=== PATIENT | female | born 1985 | race Caucasian/White ===

== ENCOUNTER 2019-04-29 08:14 | Outpatient (CLI) | payer OTHER, SELFPAY ==
--- NOTE | ~2019-04-29 | CT_ITS ---
EXAMINATION: CT sinus wo con DATE: 04/29/2019 08:34 INDICATION: Chronic sinusitis TECHNIQUE: Computed tomography (CT) of the paranasal sinuses was performed without intravenous contra st. The dose-length product was 218.04 mGy-cm. Automated exposure control and iterative reconstructio n technique were employed. COMPARISON: CT dated 01/07/2018 FINDINGS: There are surgical changes consistent with resection of the ostiomeatal units. There is mil d mucosal thickening of the maxillary sinuses. There are no air-fluid levels. No significant nasal se ptal deviation. Mastoids are pneumatized. IMPRESSION: 1. Mild maxillary mucosal thickening. Reviewed, dictated and finalized at location A. ET ANALYST
== END 2019-04-29 08:15 | disposition home or self-care (01) ==
PROVIDERS: Visit Provider Family Medicine
DX: J32.9 Chronic sinusitis, unspecified (principal)
CPT/HCPCS: 70486

== ENCOUNTER 2019-12-01 09:30 | Outpatient (NON) | payer OTHER, SELFPAY ==
[2019-12-02 03:00] LABS: SARS-CoV-2 RNA PCR Negative
== END 2019-12-01 09:31 ==
PROVIDERS: PCP Family Medicine; Visit Provider Family Medicine
DX: Z20.828 Contact with and (suspected) exposure to other viral communicable diseases (principal)
CPT/HCPCS: 87635; C9803; U0003

== ENCOUNTER → 2020-08-17 06:33 | Outpatient (CLI) | payer OTHER, SELFPAY ==
[2020-08-17 16:57] LABS: SARS-CoV-2 RNA PCR Negative
== END ==
PROVIDERS: PCP Family Medicine; Visit Provider Family Medicine
DX: R68.89 Other general symptoms and signs (principal); Z20.822 Contact with and (suspected) exposure to COVID-19
CPT/HCPCS: C9803; U0003; U0005

== ENCOUNTER 2021-09-09 08:47 | Emergency (ER) | payer OTHER, SELFPAY ==
[2021-09-09 08:58] VITALS: BP 131/99; PULSE 75; RESP 12; TEMP 36.9; O2SAT 100
--- NOTE | 2021-09-09 09:08 | ED.GENADULT ---
HPI - General Adult General Chief complaint: Unspecified Stated complaint: not feeling good Time Seen by Provider: 09/09/21 09:05 Source: patient and RN notes reviewed Mode of arrival: ambulatory Limitations: no limitations History of Present Illness HPI narrative: 36-year-old female presented for complaint of not 'feeling well' for 3 days. Endorses fatigue, sinus pressure and congestion, ear pressure, and body aches. Endorses back and hip pain. Home covid test negative the day after onset of symptoms. Taking ibuprofen for pain. Denies sick contacts. She is boosted for covid. Related Data Home Medications Medication Instructions Recorded Confirmed escitalopram oxalate 20 mg tablet 20 mg PO DAILY 09/09/21 09/09/21 (Lexapro) levonorgestrel 20 mcg/24 hours (7 1 device intrauterine MONTHLY 09/09/21 09/09/21 yrs) 52 mg intrauterine device (Mirena) Allergies Allergy/AdvReac Type Severity Reaction Status Date / Time No Known Allergies Allergy Mild Verified 09/09/21 09:04 Review of Systems Review of Systems: CONSTITUTIONAL: Endorses malaise, chills EYES: Denies visual changes, redness, or discharge ENT: Reports rhinorrhea, congestion, sinus pain, otalgia CARDIOVASCULAR: Denies chest pain, palpitations, edema RESPIRATORY: Reports cough, post nasal drainage. Denies dyspnea GASTROINTESTINAL: Denies abdominal pain, nausea, vomiting, diarrhea SKIN: Denies rash or itching MUSCULOSKELETAL: Endorses myalgia Exam Narrative: GENERAL: Ill-appearing, nontoxic EYES: conjunctivae clear ENT: Mucous membranes moist. TM pearly berg with dull light reflex bilaterally; no tragal tenderness. Oropharynx normal without lesions or exudate, no drooling, no hoarseness, no trismus, uvula midline. NECK: Supple. No lymphadenopathy CHEST: Clear to auscultation, breath sounds equal. HEART: Regular rate and rhythm. ABD: soft, nondistended, BS x4, mild tender to LLQ SKIN: Warm, dry, no rash. NEURO: Alert and oriented x3. PSYCH: flat affect Course Course Emergency Course: Patient is aware of diagnosis, understands and agrees to treatment plan. Anticipatory guidance given. Patient agrees to follow-up as directed and is aware of reasons to seek care at the emergency department. Portions of this record may have been created with voice recognition software Level of Care: Express Care Visit Vital Signs Vital signs: Vital Signs Temperature 98.4 F 09/09/21 08:58 Pulse Rate 75 09/09/21 08:58 Respiratory Rate 12 09/09/21 08:58 Blood Pressure 131/99 H 09/09/21 08:58 Pulse Oximetry 100 09/09/21 08:58 Oxygen Delivery Room Air 09/09/21 08:58 Temperature 98.4 F 09/09/21 08:58 Pulse Rate 65 09/09/21 09:43 Respiratory Rate 12 09/09/21 08:58 Blood Pressure 116/81 09/09/21 09:43 Pulse Oximetry 100 09/09/21 08:58 Oxygen Delivery Room Air 09/09/21 08:58 reviewed Medical Decision Making MDM Narrative Medical decision making narrative: Covid negative. PCR will be sent. Results reviewed with pt, and at that time she states she is having blood in her urine. Denies menses. Abdomen is slightly tender to palpation at LLQ. Urine dip ordered for new complaint and culture sent. Dip showed trace blood. Advised supportive measures and signs/symptoms to go to the ER. Pt is appropriate for outpt treatment and f/u. Differential Diagnosis Differential Diagnosis: Influenza, covid, sinusitis, OM, strep pharyngitis, URI, UTI, renal calculi, pyelonephritis Vital Signs Vital Signs: Vital Signs Temperature 98.4 F 09/09/21 08:58 Pulse Rate 75 09/09/21 08:58 Respiratory Rate 12 09/09/21 08:58 Blood Pressure 131/99 H 09/09/21 08:58 Pulse Oximetry 100 09/09/21 08:58 Oxygen Delivery Room Air 09/09/21 08:58 Temperature 98.4 F 09/09/21 08:58 Pulse Rate 65 09/09/21 09:43 Respiratory Rate 12 09/09/21 08:58 Blood Pressure 116/81 09/09/21 09:43 Pulse Oximetry 100 09/09/21 08:58 Oxy
[2021-09-09 09:43] VITALS: BP 116/81; PULSE 65
--- NOTE | 2021-09-09 09:44 | PC.NURSE ---
Pt up for discharge. At time of discharge, informed of negative rapid COVID, will send PCR. Pt then mentioned she is having blood in her urine. Will obtain urine sample to further investigate new symptom.
[2021-09-09 12:49] LABS: SARS-CoV-2 RNA PCR Negative
== END 2021-09-09 09:59 | disposition home or self-care (01) ==
PROVIDERS: Emergency Provider Nurse Practitioner Family; PCP Family Medicine
DX: R31.9 Hematuria, unspecified (principal); J06.9 Acute upper respiratory infection, unspecified; Z20.822 Contact with and (suspected) exposure to COVID-19
CPT/HCPCS: 81003; 87086; 87088; 87426; 99213; C9803; G0463; U0003; U0005

== ENCOUNTER → 2021-09-26 01:37 | Outpatient (CLI) | payer OTHER, SELFPAY ==
[2021-09-26 12:05] LABS: SARS-CoV-2 RNA PCR Negative
== END ==
PROVIDERS: PCP Family Medicine; Visit Provider Family Medicine
DX: R51.9 Headache, unspecified (principal); Z20.822 Contact with and (suspected) exposure to COVID-19
CPT/HCPCS: C9803; U0003; U0005

== ENCOUNTER 2021-10-02 15:30 | Inpatient (IN) | payer OTHER, SELFPAY ==
[2021-10-02] VITALS (11 sets, daily range): BP systolic 121–140; BP diastolic 70–92; PULSE 72–113; RESP 16–18; TEMP 36.4–36.6; O2SAT 94–100; BMI 33.7
--- NOTE | ~2021-10-02 | MR_ITS ---
EXAMINATION: MR brain/brain stem wo con DATE: 10/03/2021 07:53 INDICATION: Daily persistent headache. TECHNIQUE: Magnetic resonance imaging (MRI) of the brain and brainstem was performed without intraven ous contrast. COMPARISON: Brain MRI 01/12/2018, head CT 10/02/2021 FINDINGS: There is no intracranial hemorrhage, acute infarction, or abnormal intracranial mass lesion . The ventricles are normal in size. The orbits are normal. There is mild mucosal thickening in the e thmoid sinuses. The mastoid air cells are normal. IMPRESSION: 1. Normal brain. Reviewed, dictated and finalized at location A. IMPRESSION: 1. Normal brain.
--- NOTE | ~2021-10-02 | US_ITS ---
US arterial ankle brachial ind INDICATION: Numbness and tingling TECHNIQUE: Segmental pressures and plethysmographic and Doppler waveforms of the brachial and lower e xtremity arteries were obtained. COMPARISON: None. FINDINGS: Right and left brachial artery pressures of 122 mm Hg and 123 mm Hg, respectively, are concordant (no rmal difference <= 30 mmHg). The right ankle-brachial index (DEBRA) is 1.11 (normal >= 0.9-1.0). The right great toe-brachial index (TBI) is 1.11 (normal >= 0.60). The left DEBRA is 1.16. The left TBI is 0.97. IMPRESSION: 1. Normal bilateral ankle and toe brachial indices. Reviewed, dictated and finalized at location A.
--- NOTE | ~2021-10-02 | CT_ITS ---
EXAMINATION: CT BRAIN W/O DATE: 10/02/2021 16:44 INDICATION: New headache. TECHNIQUE: Computed tomography (CT) of the head was performed without intravenous contrast. The dose- length product was 605.33 mGy-cm. Automated exposure control and iterative reconstruction technique w ere employed. COMPARISON: No prior studies for comparison. FINDINGS: Normal brain parenchymal volume for age. Normal berg-white differentiation. No acute intrac ranial hemorrhage, infarction, mass or mass effect. No ventriculomegaly or midline shift. Midline sagittal images demonstrate a normal corpus callosum, c raniovertebral junction and sella turcica. Basilar cisterns are patent. Paranasal sinuses and mastoids are pneumatized. No depressed skull fractures. IMPRESSION: 1. No acute intracranial abnormality. Reviewed, dictated and finalized at location A.
--- NOTE | ~2021-10-02 | US_ITS ---
EXAMINATION: US venous doppler [facility] DATE: 10/04/2021 11:57 INDICATION: Bilateral lower limb swelling TECHNIQUE: Dawson scale images without and with compression and Doppler images of the bilateral lower e xtremity veins were obtained. COMPARISON: None FINDINGS: The right common femoral vein, profunda femoral vein, femoral vein, popliteal vein, peroneal trunk, p osterior tibial veins, and greater saphenous vein are patent. The left common femoral vein, profunda femoral vein, femoral vein, popliteal vein, peroneal trunk, po sterior tibial veins, and greater saphenous vein are patent. IMPRESSION: 1. Patent bilateral lower extremity veins. No evidence of deep venous thrombosis. Reviewed, dictated and finalized at location A. IMPRESSION: 1. Patent bilateral lower extremity veins. No evidence of deep venous thrombosi s.
--- NOTE | ~2021-10-02 | XR_ITS ---
EXAMINATION: XR chest 2V DATE: 10/02/2021 16:33 INDICATION: Headache and dizziness TECHNIQUE: PA and lateral views of the chest are obtained. COMPARISON: 12/15/2017 FINDINGS: The lungs are free of acute opacities. No pleural effusion or pneumothorax. The cardiomedia stinal silhouette is normal. The visualized bones and soft tissues are unremarkable. IMPRESSION: 1. No acute cardiopulmonary abnormality. Reviewed, dictated and finalized at location A.
--- NOTE | ~2021-10-02 | MR_ITS ---
EXAMINATION: MR venography brain DATE: 10/07/2021 14:48 INDICATION: Headache. TECHNIQUE: Magnetic resonance venography (MRV) of the head was performed without intravenous contrast . COMPARISON: Brain MRI 10/03/2021, head CT 10/02/2021 FINDINGS: The superior sagittal sinus, inferior sagittal sinus, internal cerebral veins, vein of Napoleon, straigh t sinus, transverse sinuses, and oblique sinuses are patent. IMPRESSION: 1. Normal MRV of the head. Reviewed, dictated and finalized at location A. IMPRESSION: 1. Normal MRV of the head.
--- NOTE | 2021-10-02 15:46 | PC.NURSE ---
patient has had a headache since 09-06-21. Is being seen by PMD for this headache and is scheduled for ct in a few days. patient states she came to er today with the hope that her ct could be rushed
--- NOTE | 2021-10-02 16:04 | ECG_ITS ---
Measurements Intervals [place] Rate: 89 P: 60 AR: 166 QRS: 62 QRSD: 97 T: 26 QT: 362 QTc: 443 Interpretive Statements SINUS RHYTHM INCOMPLETE RIGHT BUNDLE BRANCH BLOCK [90+ ms QRS DURATION, TERMINAL R IN V1/V2, 40+ ms S IN I/aVL/V4/V5/V6] NO PREVIOUS ECG AVAILABLE FOR COMPARISON Electronically Signed On 10-02-2021 18:37:40 CDT by Mandy Hill M.D.
[2021-10-02] MEDS: LACTATED RINGERS 1,000 ML 999 ML IV CONT ×2 (16:21→17:25)
[2021-10-02 16:31] LABS: Basophils Absolute Auto 0.1 K/mm3 (0.0-0.1); Basophils Percent Auto 0.3 % (0.2-1.2); Eosinophils Absolute Auto 0.2 K/mm3 (0-0.3); Eosinophils Percent Auto 1.2 % (0-4.4); Hematocrit 38.2 % (37.0-47.0); Hemoglobin 12.2 g/dL (12.0-15.0); Immature Granulocyte Absolute 0.07 K/mm3 (0.00-0.031); Immature Granulocyte Percent A 0.4 % (0-0.5); Lymphocytes Absolute Auto 3.43 K/mm3 (0.9-3.2); Lymphocytes Percent Auto 21.4 % (18.3-44.2); Mean Corpuscular HGB Conc 31.9 g/dl (32-36); Mean Corpuscular Hemoglobin 28.2 pg (26-34); Mean Corpuscular Volume 88.4 fl (80-100); Mean Platelet Volume 9.4 fl (7.4-10.4); Monocytes Absolute Auto 0.9 K/mm3 (0.1-0.6); Monocytes Percent Auto 5.5 % (2.6-8.5); Neutrophils Absolute Auto 11.4 K/mm3 (1.3-6.7); Neutrophils Percent Auto 71.2 % (45.5-73.1); Platelet Count Result 347 k/mm3 (150-375); Red Blood Count 4.32 M/mm3 (4.2-5.4); White Blood Count 16.1 K/mm3 (4.5-10.0)
[2021-10-02 16:45] LABS: Prothrombin Time 12.6 Seconds (11.1-14.7)
[2021-10-02 16:46] LABS: Alanine Aminotransferase 39 U/L (6-35); Albumin Level 4.1 g/dL (3.5-5.1); Alkaline Phosphatase 94 U/L (38-126); Anion Gap 9 mmol/L (8-16); Aspartate Amino Transferase 34 U/L (14-36); Bilirubin,Total 0.6 mg/dL (0.2-1.3); Blood Urea Nitrogen 18 mg/dL (7-17); Calcium 8.7 mg/dL (8.4-10.2); Carbon Dioxide 26 mmol/L (22-30); Chloride 102 mmol/L (98-107); Estimated Glomerular Filt Rate > 60; Glucose 123 mg/dL (65-110); Partial Thromboplastin Time 27.5 SECONDS (22.3-36.8); Potassium 4.1 mmol/L (3.4-5.0); Sodium 137 mmol/L (137-145)
[2021-10-02 16:47] LABS: Ethanol < 10 mg/dL (<10)
[2021-10-02] MEDS: diphenhydrAMINE HCl INJ 50 MG/ML VIAL 25 MG IV PUSH (16:58)
[2021-10-02] MEDS: METOCLOPRAMIDE HCL INJ 10 MG/2 ML VIAL IV PUSH (16:59)
[2021-10-02] MEDS: KETOROLAC 30 MG/ML VIAL (*BKC) IV PUSH (16:59)
[2021-10-02 17:01] LABS: Appearance Urine Slightly Cloudy (Clear); Bilirubin Urine 1+ (Negative); Blood Urine Negative (Negative); Color Urine Yellow (Yellow); Glucose Urine UA Negative (Negative); Ketones Urine Negative (Negative); Leukocyte Esterase Ur Negative LEU/UL (Negative); Nitrate Urine Negative (Negative); Protein Urine Negative (Negative)
[2021-10-02 17:04] LABS: Lactic Acid Reflex 0.7 mmol/L (0.7-2.0)
[2021-10-02 17:07] LABS: CRP 1.2 mg/dL (<1.0); Lipase 60 U/L (23-300); Magnesium 1.8 mg/dL (1.6-2.3)
[2021-10-02 17:11] LABS: Add Urine Microscopic? YES; Bacteria Urine Trace /hpf; Mucus Urine Moderate /lpf; Squamous Epithelial Cell Urine Many /hpf (Few); WBC Urine 0-3 /hpf
[2021-10-02 17:17] LABS: Troponin I < 0.012 ng/mL (0.000-0.034)
[2021-10-02 18:24] LABS: Lactic Acid Reflex 1.4 mmol/L (0.7-2.0)
--- NOTE | 2021-10-02 18:31 | ED.HA ---
HPI - Headache General Chief Complaint: Headache Stated Complaint: headache, blue toes Time Seen by Provider: 10/02/21 15:54 Source: patient, RN notes reviewed and old records reviewed Mode of arrival: ambulatory Limitations: no limitations History of Present Illness HPI Narrative: This is a 36 year old female who presents for evaluation of not feeling well since September 06. She started with congestion, headache and body aches. She has continued to have daily headaches with fatigue. Her headache is diffuse from back of her head around to front. She also has neck pain. She has been seen by her primary who thinks it is due to muscle tension, tension headache. She has been taking muscle relaxers. She is still having headaches and she is sleeping more. she also noticed today that her toes seem blue and feel tingling. He denies abdominal pain, urinary symptoms. She denies chest pain. She also denies camping or tick bite exposures. Related Data Home Medications Medication Instructions Recorded Confirmed escitalopram oxalate 20 mg tablet 20 mg PO DAILY 09/09/21 09/09/21 (Lexapro) levonorgestrel 20 mcg/24 hours (7 1 device intrauterine MONTHLY 09/09/21 09/09/21 yrs) 52 mg intrauterine device (Mirena) Allergies Allergy/AdvReac Type Severity Reaction Status Date / Time No Known Allergies Allergy Mild Verified 09/09/21 09:04 Review of Systems Review of Systems: All systems reviewed & are unremarkable except as noted in HPI and below Constitutional: Constitutional: Denies chills, Reports fatigue, Denies fever(s) and Reports weakness ENT: Reports nasal congestion Cardiovascular: Cardiovascular: Denies chest pain Genitourinary: Genitourinary: Denies hematuria and Denies dysuria Musculoskeletal: Musculoskeletal: Reports back pain (neck pain) and Reports myalgias Neurologic: Reports dizziness, Denies syncope, Reports headache(s) and Denies focal weakness Psychiatric: Psychiatric: Reports anxiety Endocrine: Endocrine: Reports fatigue PMFSH Past Medical History Medical History (Updated 10/02/21 @ 20:20 by Nanda Rcuker MD) Anxiety Depression Surgical History Surgical History (Updated 10/02/21 @ 18:33 by Nanda Rucker MD) Hx of appendectomy Social History Social History (Updated 10/02/21 @ 18:33 by Nanda Rucker MD) Smoking status: Never smoker Alcohol intake: never Substance use: never Exam Narrative: GENERAL: well-nourished, and in no acute distress. HEAD: Normocephalic, atraumatic EYES: PERRLA and EOMI, conjunctiva clear without discharge EARS: TM's clear bilaterally without erythema or dullness THROAT:Mucous membranes moist, Oropharynx normal without erythema, exudate, peritonsillar swelling or fluctuance NECK: Supple, without lymphadenopathy or mass RESPIRATORY: No respiratory distress, Airway patent, Respirations non-labored, Clear to auscultation without rales, rhonchi or wheeze HEART: Regular rate and rhythm. No murmur heard. Normal peripheral pulses. ABDOMEN: Soft, nontender, nondistended, normal active bowel sounds. No masses. No rebound or guarding, No organomegaly. EXTREMITIES: No edema, normal strength with full range of motion. SKIN: Warm, dry, normal color without rash NEURO: Alert and oriented x3. CN 2-12 grossly intact. No focal deficits. PSYCH: Normal mood and affect. Course Reevaluation(s) Reevaluation #1: I discussed with patient and labs and my concern that we need to do LP. She agreed. She has been accepted to hospitalist service. Date: 10/02/21 Time: 19:30 Vital Signs Vital signs: Vital Signs Temperature 97.9 F 10/02/21 15:39 Pulse Rate 113 H 10/02/21 15:39 Respiratory Rate 18 10/02/21 15:39 Blood Pressure 140/92 H 10/02/21 15:39 Pulse Oximetry 98 10/02/21 15:39 Temperature 97.9 F 10/02/21 15:39 Pulse Rate 78 10/02/21 18:15 Respiratory Rate 18 10/02/21 18:15 Blood Pressure
[2021-10-02] MEDS: cefTRIAXone 2 GM in SODIUM CHLORIDE 0.9% IV 100 ML 200 ML IVPB (19:31)
[2021-10-02 19:37] LABS: Glucose CSF 65 mg/dL (40-70); Total Protein CSF 37 mg/dL (12-60)
--- NOTE | 2021-10-02 19:51 | PM.IMHP ---
H&P: HPI History of Present Illness Date/Time: 10/02/21 19:51 Chief Complaint: headache Narrative: This is a 36-year-old female WITH PAST MEDICAL HISTORY SIGNIFICANT FOR GENERALIZED ANXIETY DISORDER, MAJOR DEPRESSION. Patient comes to the emergency room due to persistent daily headache which is frontal localized for the last month or so patient has had evaluation at Urgent Care was found to have sinusitis and sent home on Z pack and Medrol pack WITH NO RESOLUTION OF SYMPTOMS BRAIN FOGGINESS, confusion at times, had been started on Lexapro in February and inquires if there is any relation with her symptoms, patient denies any night sweats, rigors, chills, fevers, cough, sputum production, changes of her vision, rashes, weight loss, joint swelling or pain, no nausea, no vomiting, no diarrhea, no abdominal pain. Preliminary workup was significant for an LP with elevated lymphocyte count, WBC [id number], a CT of the head did not show acute intracranial abnormality, a chest x-ray was clear. patient is being admitted for further evaluation management and treatment. Review of Systems Review of Systems: Daily headache persistent, brain fog, confusion. Constitutional: Constitutional: Denies chills, Denies fatigue, Denies fever(s), Denies lethargy, Denies malaise, Denies poor appetite, Denies weakness, Denies weight loss and Reports other ( Not feeling well) Eyes: Eyes: Denies blurry vision, Denies change in vision, Denies diplopia, Denies floaters, Denies eye pain and Reports photophobia ENT: Denies dysphagia, Denies vertigo, Denies dizziness, Denies nasal congestion, Denies nasal discharge, Denies odynophagia and Denies sore throat Cardiovascular: Cardiovascular: Denies chest pain, Denies pedal edema, Denies irregular heart rhythm, Denies leg ulcers, Denies leg edema, Denies lightheadedness and Denies palpitations Respiratory: Respiratory: Denies chest congestion, Denies cough, Denies excessive phlegm production and Denies dyspnea Gastrointestinal: Gastrointestinal: Denies abdominal pain, Denies diarrhea, Denies loose stools, Denies nausea and Denies vomiting Genitourinary: Genitourinary: Denies dysuria Musculoskeletal: Musculoskeletal: Denies abnormal gait, Denies back pain, Denies myalgias, Denies arthralgias, Denies joint swelling, Denies limited range of motion, Denies muscle cramps, Denies muscle weakness, Denies stiffness and Reports tingling Integumentary/Breasts: Skin/Breast: Denies rash Neurologic: Denies vertigo, Denies dizziness, Denies frequent falls, Denies lack of coordination, Denies focal weakness, Denies Sensory deficit (Neuro), Reports paresthesias and Denies weakness Psychiatric: Psychiatric: Reports no additional psychiatric complaints and Reports as per HPI Endocrine: Endocrine: Denies cold intolerance, Denies flushing, Denies heat intolerance, Denies polyphagia, Denies polydipsia and Denies palpitations Hematologic/Lymphatic: Hematologic/Lymphatic: Reports no additional hematologic/lymphatic complaints and Reports as per HPI Allergic/Immunologic: Allergic/Immunologic: Reports no additional allergic/immunologic complaints and Reports as per HPI PMFSH Past Medical History Medical History (Updated 10/03/21 @ 00:21 by Kerrie Castellon MD) Anxiety Depression Surgical History Surgical History (Updated 10/02/21 @ 18:33 by Nanda Rucker MD) Hx of appendectomy Family History Family History (Updated 10/02/21 @ 21:24 by April Rose RN) Mother Congestive heart failure Rheumatoid arthritis Epilepsy Father Congestive heart failure Social History Social History (Updated 10/02/21 @ 18:33 by Nanda Rucker MD) Smoking status: Never smoker Alcohol intake: current Substance use: never Substance use type: does not use Last use: Drinks alcohol socially, but very rare. Spiritual care concerns: No Meds Home Medications and Allergies Home Medications Medication Instruct
[2021-10-02 20:14] LABS: Appearance CSF Clear (Clear); CSF source CSF; Color CSF Colorless (Colorless); Lymphocytes CSF 100 % (40-80); Nucleated Cell CSF 2 /uL (0-5); Red Blood Cell CSF 13 (0-2)
[2021-10-02] MEDS: ONDANSETRON INJ 4 MG/2 ML VIAL (20:24)
[2021-10-02] MEDS: MORPHINE SULFATE (*CRX) 4 MG/ML INJ (20:24)
[2021-10-02 20:55] LABS: SARS-CoV-2 RNA PCR Negative
--- NOTE | 2021-10-02 21:22 | ADMGEN ---
This patient, Jazmine Antoine, was admitted to 2 Medical Room 260-. Patient/family oriented to hospital policies and general routines including ID bracelet, bed and alarms, visiting hours, pain management, procedures, bathroom and other care routines, personal items, smoking policy, room service/diet, and visiting hours. Information on how to activate the Rapid Response Team has been discussed. Patient/Family are encouraged to report perceived risks to care and to ask questions if they do not understand what they are told or what they should do.
[2021-10-02 23:21] LABS: Amphetamine Screen Urine Negative (Negative); Barbiturate Screen Urine Negative (Negative); Benzodiazepines Screen Urine Negative (Negative); Cannabinoid Screen Urine Negative (Negative); Cocaine Screen Urine Negative (Negative); Methadone Screen Urine Negative (Negative); Opiate Screen Urine Negative (Negative); Phencyclidine Screen Urine Negative (Negative)
[2021-10-02] MEDS: SODIUM CHLORIDE 0.9% IV 1,000 ML 125 ML IV CONT (23:21)
[2021-10-03] MEDS: MORPHINE SULFATE (*CRX) 4 MG/ML INJ IV PUSH ×2 (02:39→09:59)
[2021-10-03 03:38] VITALS: BP 127/71; PULSE 100; RESP 16; TEMP 36.4; O2SAT 100
[2021-10-03] MEDS: traZODone HCL 50 MG TABLET PO ×2 (03:39→20:31)
[2021-10-03 06:21] LABS: Basophils Percent Auto 0.3 % (0.2-1.2); Eosinophils Absolute Auto 0.1 K/mm3 (0-0.3); Eosinophils Percent Auto 0.5 % (0-4.4); Hematocrit 36.2 % (37.0-47.0); Hemoglobin 11.4 g/dL (12.0-15.0); Immature Granulocyte Absolute 0.04 K/mm3 (0.00-0.031); Immature Granulocyte Percent A 0.4 % (0-0.5); Lymphocytes Absolute Auto 2.57 K/mm3 (0.9-3.2); Lymphocytes Percent Auto 24.5 % (18.3-44.2); Mean Corpuscular HGB Conc 31.5 g/dl (32-36); Mean Corpuscular Hemoglobin 28.5 pg (26-34); Mean Corpuscular Volume 90.5 fl (80-100); Mean Platelet Volume 9.4 fl (7.4-10.4); Monocytes Absolute Auto 0.8 K/mm3 (0.1-0.6); Monocytes Percent Auto 7.5 % (2.6-8.5); Neutrophils Percent Auto 66.8 % (45.5-73.1); Platelet Count Result 299 k/mm3 (150-375); Red Cell Distribution Width 12.9 % (11.5-14.5); White Blood Count 10.5 K/mm3 (4.5-10.0)
[2021-10-03 06:36] LABS: Alanine Aminotransferase 33 U/L (6-35); Albumin Level 3.4 g/dL (3.5-5.1); Alkaline Phosphatase 79 U/L (38-126); Anion Gap 5 mmol/L (8-16); Aspartate Amino Transferase 26 U/L (14-36); Bilirubin,Total 0.6 mg/dL (0.2-1.3); Blood Urea Nitrogen 16 mg/dL (7-17); Calcium 8.2 mg/dL (8.4-10.2); Carbon Dioxide 28 mmol/L (22-30); Chloride 104 mmol/L (98-107); Estimated CRCL calculation 91 ml/min; Estimated Glomerular Filt Rate > 60; Glucose 97 mg/dL (65-110); Potassium 4.2 mmol/L (3.4-5.0); Sodium 137 mmol/L (137-145)
[2021-10-03 06:44] LABS: Monoscreen Negative (Negative); Negative Monotest Control Negative (Negative); Positive Monotest Control Positive (Positive)
[2021-10-03 08:15] VITALS: BP 130/79; PULSE 101; RESP 20; TEMP 36.2; O2SAT 100
[2021-10-03] MEDS: diazePAM INJ (*CRX) 10 MG/2 ML SYRINGE 5 MG IV PUSH (08:47)
[2021-10-03] MEDS: cefTRIAXone 2 GM in SODIUM CHLORIDE 0.9% IV 100 ML 200 ML IVPB ×2 (09:11→20:30)
[2021-10-03] MEDS: ONDANSETRON INJ 4 MG/2 ML VIAL IV PUSH (09:59)
--- NOTE | 2021-10-03 11:00 | PM.IMPN ---
Progress Note: A&P Assessment and Plan (1) Meningitis: Code(s): G03.9 - Meningitis, unspecified Status: Acute Assessment and Plan: C/O CLANCY x 1 month, +nuchal rigidity, previously treated with muscle relaxers, Z-pack, steroids, and pseudoephedrine outpatient. Lumbar puncture shows clear, colorless fluid, 100% lymphocytes, 2/uL nucleated cells, glucose 65, total protein 37. Culture and gram stain pending. HSV, lyme, [place] immunoglobulins pending. Continue acyclovir IV Q8 hours, Ceftriaxone 2 grams IV Q12 hours, and Vancomycin IV Q12 hours pharmacy to dose. Monitor neuro status. Continue supportive care - PRN norco PO, PRN Morphine IV, PRN Zofran IV (2) New daily persistent headache: Code(s): G44.52 - New daily persistent headache (NDPH) Status: Acute Assessment and Plan: MRI Brain negative, CT head unremarkable. Secondary to meningitis. (3) Anxiety: Code(s): F41.9 - Anxiety disorder, unspecified Status: Acute Assessment and Plan: Patient c/o increased anxiety today (10/03/21) following MRI. Anxiety improved with IV Valium. Add PRN lorazepam for acute anxiety. Continue Lexapro HS trazadone PO for sleep. (4) Depression: Code(s): F32.A - Depression, unspecified Status: Chronic Assessment and Plan: continue Lexapro Plan CODE STATUS: FULL CODE Disposition: Home Time Spent With Patient Time with patient: 15 - 25 minutes Subjective Date/time seen: 10/03/21 11:00 Interval history: Patient is a 36 yo female with no significant medical history presented to the ED for evaluation of headache x1 month, neck pain, myalgia, malaise, and paresthesia. ED work up suggesting meningitis. Patient was found lying in bed. She reports if she lays still on [her] back she feels comfortable. No chest pain, SOB, abd pain, N/V/D or dysuria. She had an episode of acute anxiety following her MRI and reports she had urinary incontinence at that time. Review of Systems Review of Systems: All systems reviewed & are unremarkable except as noted in HPI and below Exam Narrative: General:?No acute distress. Ill-appearing adult female lying in bed. HEENT:??Normocephalic. Sclera non-icteric. PERRL, EOM intact. No nystagmus. Conjunctivae anicteric.? Oral mucosa moist and oropharynx without abnormality, Hearing grossly normal. Neck:??Supple. No JVD. +Nuchal rigidity. Respiratory:?RR unlabored at rest. Lungs are clear to auscultation bilaterally. No adventitious breath sounds. Cardiovascular:??Regular rate and rhythm with S1-S2.? No murmur, gallop or rub. Gastrointestinal:?Soft, round and nontender to palpation. Normoactive bowel sounds. Skin:??Warm and dry. Normal for ethnicity; fair. No cyanosis. Less than 3 sec cap refill. No rash, lesions or open wounds. Extremities:??Moves all 4 extremities with equal strength. Generalized weakness. No clubbing or edema. Radial and pedal pulses equal and palpable. Neurological:??Awake. Tired appearing. AOx4. Cranial nerves 2-12 are grossly intact. No focal deficits. Psychiatric:??Pleasant and cooperative. Mildly anxious mood and affect. Objective Data Vital Signs Vital Signs: Vital Signs - 24 hr 10/02/21 15:39 10/02/21 16:41 10/02/21 16:47 Temperature 97.9 F Pulse Rate 113 H Respiratory Rate 18 Blood Pressure 140/92 H Pulse Oximetry 98 97 97 Oxygen Delivery 10/02/21 17:03 10/02/21 17:15 10/02/21 17:16 Temperature Pulse Rate Respiratory Rate Blood Pressure 132/84 Pulse Oximetry 96 94 99 Oxygen Delivery 10/02/21 17:30 10/02/21 17:45 10/02/21 18:00 Temperature Pulse Rate Respiratory Rate Blood Pressure Pulse Oximetry 97 96 97 Oxygen Delivery 10/02/21 18:15 10/02/21 21:18 10/02/21 21:39 Temperature 97.6 F Pulse Rate 78 72 Respiratory Rate 18 16 Blood Pressure 140/70 121/74 Pulse Oximetry 100 100 Oxygen Delivery Room Air 0
[2021-10-03] MEDS: SODIUM CHLORIDE 0.9% IV 1,000 ML 125 ML IV CONT ×2 (12:36→23:11)
[2021-10-03] MEDS: HYDROcodone/acetaminophen (*CRX) 5-325 MG TABLET 1 TAB PO ×3 (14:10→23:13)
[2021-10-03 14:13] VITALS: BP 120/70; PULSE 90; RESP 16; TEMP 36.2; O2SAT 100
[2021-10-03 15:43] VITALS: O2SAT 99
[2021-10-03] MEDS: ESCITALOPRAM OXALATE 10 MG TABLET 20 MG PO (16:44)
[2021-10-03 19:38] VITALS: BP 103/61; PULSE 87; RESP 12; TEMP 36.9; O2SAT 99
[2021-10-04] MEDS: ONDANSETRON INJ 4 MG/2 ML VIAL IV PUSH ×2 (01:35→15:19)
[2021-10-04 04:47] VITALS: BP 101/57; PULSE 72; RESP 16; TEMP 37.1; O2SAT 94
[2021-10-04] MEDS: HYDROcodone/acetaminophen (*CRX) 5-325 MG TABLET 1 TAB PO ×4 (05:55→20:55)
[2021-10-04 06:21] LABS: Basophils Percent Auto 0.2 % (0.2-1.2); Eosinophils Absolute Auto 0.1 K/mm3 (0-0.3); Eosinophils Percent Auto 0.6 % (0-4.4); Hematocrit 35.9 % (37.0-47.0); Hemoglobin 11.1 g/dL (12.0-15.0); Immature Granulocyte Absolute 0.05 K/mm3 (0.00-0.031); Immature Granulocyte Percent A 0.4 % (0-0.5); Lymphocytes Absolute Auto 1.88 K/mm3 (0.9-3.2); Lymphocytes Percent Auto 14.8 % (18.3-44.2); Mean Corpuscular HGB Conc 30.9 g/dl (32-36); Mean Corpuscular Hemoglobin 28.4 pg (26-34); Mean Corpuscular Volume 91.8 fl (80-100); Mean Platelet Volume 9.6 fl (7.4-10.4); Monocytes Absolute Auto 0.8 K/mm3 (0.1-0.6); Neutrophils Absolute Auto 9.9 K/mm3 (1.3-6.7); Platelet Count Result 313 k/mm3 (150-375); Red Blood Count 3.91 M/mm3 (4.2-5.4); Red Cell Distribution Width 13.1 % (11.5-14.5); White Blood Count 12.7 K/mm3 (4.5-10.0)
[2021-10-04 06:39] LABS: Alanine Aminotransferase 29 U/L (6-35); Albumin Level 3.5 g/dL (3.5-5.1); Alkaline Phosphatase 81 U/L (38-126); Anion Gap 7 mmol/L (8-16); Aspartate Amino Transferase 24 U/L (14-36); Bilirubin,Total 0.5 mg/dL (0.2-1.3); Blood Urea Nitrogen 11 mg/dL (7-17); Calcium 8.8 mg/dL (8.4-10.2); Carbon Dioxide 27 mmol/L (22-30); Chloride 103 mmol/L (98-107); Estimated CRCL calculation 82 ml/min; Estimated Glomerular Filt Rate > 60; Glucose 92 mg/dL (65-110); Potassium 3.7 mmol/L (3.4-5.0); Sodium 137 mmol/L (137-145)
[2021-10-04] MEDS: cefTRIAXone 2 GM in SODIUM CHLORIDE 0.9% IV 100 ML 200 ML IVPB ×2 (08:09→20:40)
--- NOTE | 2021-10-04 08:53 | PC.NURSE ---
called pharmacy to let them know I am missing 1000 acyclovir. will give medication when received from pharmacy.
[2021-10-04] MEDS: SODIUM CHLORIDE 0.9% IV 1,000 ML 125 ML IV CONT ×2 (10:39→20:54)
--- NOTE | 2021-10-04 11:04 | PM.IMPN ---
Progress Note: A&P Assessment and Plan (1) Meningitis: Code(s): G03.9 - Meningitis, unspecified Status: Acute Assessment and Plan: C/O CLANCY x 1 month, +nuchal rigidity, previously treated with muscle relaxers, Z-pack, steroids, and pseudoephedrine outpatient. Lumbar puncture shows clear, colorless fluid, 100% lymphocytes, 2/uL nucleated cells, glucose 65, total protein 37. Culture and gram stain pending. HSV, lyme, west nile immunoglobulins pending. Continue acyclovir IV Q8 hours, Ceftriaxone 2 grams IV Q12 hours, and Vancomycin IV Q12 hours pharmacy to dose. Monitor neuro status. Continue supportive care - PRN norco PO, PRN Morphine IV, PRN Zofran IV consult neurology, appreciate assistance and recommendations (2) New daily persistent headache: Code(s): G44.52 - New daily persistent headache (NDPH) Status: Acute Assessment and Plan: MRI Brain negative, CT head unremarkable. Secondary to meningitis. (3) Anxiety: Code(s): F41.9 - Anxiety disorder, unspecified Status: Acute Assessment and Plan: Patient c/o increased anxiety today (10/03/21) following MRI. Anxiety improved with IV Valium. PRN lorazepam for acute anxiety. Continue Lexapro HS trazadone PO for sleep. (4) Depression: Code(s): F32.A - Depression, unspecified Status: Chronic Assessment and Plan: continue Lexapro Plan CODE STATUS: FULL CODE Disposition: Home Subjective Date/time seen: 10/04/21 11:04 Patient is alert and oriented x4 this morning. She continues complain of a headache. Labs and imaging reviewed, all negative. Unsure patient's source of pain or infection. Patient continues to have a leukocytosis. Remains on IV antibiotics. patient reports significant caffiene usage. Neurology was consulted today. No acute events reported by RN during the night Review of Systems Review of Systems: All systems reviewed & are unremarkable except as noted in HPI and below Exam Narrative: General:?No acute distress. Ill-appearing adult female lying in bed. HEENT:??Normocephalic. Sclera non-icteric. PERRL, EOM intact. No nystagmus. Conjunctivae anicteric.? Oral mucosa moist and oropharynx without abnormality, Hearing grossly normal. Neck:??Supple. No JVD. +Nuchal rigidity. Respiratory:?RR unlabored at rest. Lungs are clear to auscultation bilaterally. No adventitious breath sounds. Cardiovascular:??Regular rate and rhythm with S1-S2.? No murmur, gallop or rub. Gastrointestinal:?Soft, round and nontender to palpation. Normoactive bowel sounds. Skin:??Warm and dry. Normal for ethnicity; fair. No cyanosis. Less than 3 sec cap refill. No rash, lesions or open wounds. Extremities:??Moves all 4 extremities with equal strength. Generalized weakness. No clubbing or edema. Radial and pedal pulses equal and palpable. Neurological:??Awake. Tired appearing. AOx4. Cranial nerves 2-12 are grossly intact. No focal deficits. Psychiatric:??Pleasant and cooperative. Mildly anxious mood and affect. Objective Data Vital Signs Vital Signs: Vital Signs - 24 hr 10/03/21 14:13 10/03/21 15:43 10/03/21 19:38 Temperature 97.1 F L 98.5 F Pulse Rate 90 87 Respiratory Rate 16 12 Blood Pressure 120/70 103/61 Pulse Oximetry 100 99 99 Oxygen Delivery Room Air 10/03/21 20:00 10/04/21 04:47 10/04/21 08:05 Temperature 98.7 F Pulse Rate 72 Respiratory Rate 16 Blood Pressure 101/57 L Pulse Oximetry 94 Oxygen Delivery Room Air Room Air Intake/Output Intake/Output: Intake & Output 10/01/21 10/02/21 10/03/21 10/04/21 23:59 23:59 23:59 23:59 Intake Total 2099 4123.4 1817.8 Output Total 2049 800 Balance 2099 2073.4 1017.8 Meds/Results Medications: Active Medications Generic Name Dose Route Start Last Admin Trade Name Freq PRN Reason Stop Dose Admin Hydrocodone Bitart/Acetaminophen 1 tab 10/03/21 10:58 10/04/21 10:33 Hydrocodone/Aceta
[2021-10-04] MEDS: ACETAMINOPHEN/BUTALBITAL/CAFFEINE 325-50-40 MG TABLET (FIORICET) 1 TAB PO (12:14)
[2021-10-04 13:22] VITALS: BP 132/71; PULSE 96; RESP 20; TEMP 36.2; O2SAT 99
--- NOTE | 2021-10-04 13:22 | WPDNEURCNPN ---
Assessment and Plan Assessment and plan (1) Anxiety: Code(s): F41.9 - Anxiety disorder, unspecified Status: Acute (2) Depression: Code(s): F32.A - Depression, unspecified Status: Chronic Plan being treated for the SLIPMAN infection bacterial versus viral but the CSF is not compatible with the bacterial infection will finish the 72 hours of antibiotic antiviral can be continued till other studies are obtained in the meantime again obtained a routine EEG as well, problem could very well be related to anxiety but again all the steps taken have to be taken according for the final diagnosis Consult date: 10/04/21 Time Seen: 11:00 Reason for consult: headaches HPI: Jazmine Antoine is a 36 year old female admitted to the hospital through the emergency room where she presented with the complaints of not feeling well since September 06 and giving the information that congestion is started initially followed by the headaches and body aches along with the generalized fatigue she localized her headache to the back of the head coming around the sites of the front along with the neck pain she has evaluated by the family physicians with the diagnosis of tension headache for which she had been taking muscle relaxer she was sleeping excessively and she saw toes are becoming blue and started to tingle but she had no associated history of urinary dysfunction or incontinence gave no history of tick bites or any exposure, patient has been taking Lexapro 20 mg daily, she gave the history of anxiety with depression, no smoking no alcohol drinking, and initial examination in the Emergency Room normal and nonfocal, initial vital signs normal, CBC normal, BMP normal, TSH 2.9, INR 1.0, CRP 1.2, lactic acid 1.4, spinal fluid studies done in the emergency room CSF clear colorless with 13 RBCs and only 2 cells 100% lymphocytes glucose 65 and protein only 37, rest of the studies pending, other studies include venous Doppler study negative MRI and negative CT scan of the head negative and chest x-ray Review of Systems Review of Systems: All systems reviewed & are unremarkable except as noted in HPI and below PMFSH Past Medical History Medical History (Updated 10/03/21 @ 15:12 by Meaghan Smith APRN) Anxiety Depression Surgical History Surgical History (Updated 10/02/21 @ 18:33 by Nanda Rucker MD) Hx of appendectomy Family History Family History (Updated 10/02/21 @ 21:24 by April Rose RN) Mother Congestive heart failure Rheumatoid arthritis Epilepsy Father Congestive heart failure Social History Social History (Updated 10/02/21 @ 18:33 by Nanda Rucker MD) Smoking status: Never smoker Alcohol intake: current Substance use: never Substance use type: does not use Last use: Drinks alcohol socially, but very rare. Spiritual care concerns: No Meds Home Medications and Allergies Home Medications Medication Instructions Recorded Confirmed Type escitalopram oxalate 20 mg tablet 20 mg PO DAILY 09/09/21 10/02/21 History (Lexapro) levonorgestrel 20 mcg/24 hours (7 1 device intrauterine MONTHLY 09/09/21 10/02/21 History yrs) 52 mg intrauterine device (Mirena) cyclobenzaprine 10 mg tablet 10 mg PO TID PRN Headache 10/02/21 10/02/21 History pseudoephedrine HCl 60 mg tablet 120 mg PO Q4-6H PRN Headache 10/02/21 10/02/21 History valacyclovir 500 mg tablet 500 mg PO BID PRN Outbreak 10/02/21 10/02/21 History Allergies Allergy/AdvReac Type Severity Reaction Status Date / Time No Known Allergies Allergy Mild Verified 09/09/21 09:04 Vital Signs Vital Signs - 24 hr 10/03/21 14:13 10/03/21 15:43 10/03/21 19:38 Temperature 36.2 C L 36.9 C Pulse Rate 90 87 Respiratory Rate 16 12 Blood Pressure 120/70 103/61 Pulse Oximetry 100 99 99 Oxygen Delivery Room Air 10/03/21 20:00 10/04/21 04:47 10/04/21 08:05 Temperature 37.1 C Pulse Rate 72 Respiratory Rat
[2021-10-04] MEDS: ESCITALOPRAM OXALATE 10 MG TABLET 20 MG PO (17:16)
[2021-10-04 19:58] VITALS: BP 122/86; PULSE 82; RESP 12; TEMP 36.8; O2SAT 98
[2021-10-04 20:01] VITALS: BP 130/83
[2021-10-04 20:05] VITALS: BP 126/87
[2021-10-04] MEDS: traZODone HCL 50 MG TABLET PO (20:39)
[2021-10-05] VITALS (10 sets, daily range): BP systolic 120–126; BP diastolic 70–86; PULSE 63–92; RESP 12–20; TEMP 36.2–36.7; O2SAT 96–100
[2021-10-05] MEDS: HYDROcodone/acetaminophen (*CRX) 5-325 MG TABLET 1 TAB PO ×4 (03:49→23:12)
[2021-10-05 05:41] LABS: Basophils Percent Auto 0.2 % (0.2-1.2); Eosinophils Absolute Auto 0.1 K/mm3 (0-0.3); Eosinophils Percent Auto 1.1 % (0-4.4); Immature Granulocyte Absolute 0.03 K/mm3 (0.00-0.031); Immature Granulocyte Percent A 0.3 % (0-0.5); Lymphocytes Absolute Auto 2.67 K/mm3 (0.9-3.2); Lymphocytes Percent Auto 30.1 % (18.3-44.2); Mean Corpuscular HGB Conc 31.3 g/dl (32-36); Mean Corpuscular Hemoglobin 28.2 pg (26-34); Mean Corpuscular Volume 90.4 fl (80-100); Mean Platelet Volume 9.4 fl (7.4-10.4); Monocytes Absolute Auto 0.8 K/mm3 (0.1-0.6); Monocytes Percent Auto 9.3 % (2.6-8.5); Neutrophils Absolute Auto 5.2 K/mm3 (1.3-6.7); Platelet Count Result 252 k/mm3 (150-375); Red Blood Count 3.54 M/mm3 (4.2-5.4); Red Cell Distribution Width 12.9 % (11.5-14.5); White Blood Count 8.9 K/mm3 (4.5-10.0)
[2021-10-05 05:47] LABS: Alanine Aminotransferase 25 U/L (6-35); Albumin Level 3.1 g/dL (3.5-5.1); Alkaline Phosphatase 60 U/L (38-126); Anion Gap 7 mmol/L (8-16); Aspartate Amino Transferase 25 U/L (14-36); Bilirubin,Total 0.5 mg/dL (0.2-1.3); Blood Urea Nitrogen 7 mg/dL (7-17); Calcium 8.1 mg/dL (8.4-10.2); Carbon Dioxide 24 mmol/L (22-30); Chloride 105 mmol/L (98-107); Estimated CRCL calculation 91 ml/min; Estimated Glomerular Filt Rate > 60; Glucose 89 mg/dL (65-110); Potassium 3.5 mmol/L (3.4-5.0); Sodium 136 mmol/L (137-145)
[2021-10-05] MEDS: SODIUM CHLORIDE 0.9% IV 1,000 ML 125 ML IV CONT ×2 (06:49→16:26)
--- NOTE | 2021-10-05 06:52 | PM.IMPN ---
Progress Note: A&P Assessment and Plan (1) Meningitis: Code(s): G03.9 - Meningitis, unspecified Status: Acute Assessment and Plan: C/O CLANCY x 1 month, +nuchal rigidity, previously treated with muscle relaxers, Z-pack, steroids, and pseudoephedrine outpatient. Lumbar puncture shows clear, colorless fluid, 100% lymphocytes, 2/uL nucleated cells, glucose 65, total protein 37. Culture and gram stain pending. HSV, lyme, west nile immunoglobulins pending. Continue acyclovir IV Q8 hours IV antibiotics discontinued on 10/05/2021- Ceftriaxone 2 grams IV Q12 hours, and Vancomycin IV Q12 hours pharmacy to dose. Monitor neuro status. Continue supportive care - PRN norco PO, PRN Morphine IV, PRN Zofran IV consult neurology, appreciate assistance and recommendations-- Patient's headache may possibly rate related to anxiety? (2) New daily persistent headache: Code(s): G44.52 - New daily persistent headache (NDPH) Status: Acute Assessment and Plan: MRI Brain negative, CT head unremarkable. Secondary to meningitis. (3) Anxiety: Code(s): F41.9 - Anxiety disorder, unspecified Status: Acute Assessment and Plan: Patient c/o increased anxiety today (10/03/21) following MRI. Anxiety improved with IV Valium. PRN lorazepam for acute anxiety. Continue Lexapro HS trazadone PO for sleep. (4) Depression: Code(s): F32.A - Depression, unspecified Status: Chronic Assessment and Plan: continue Lexapro Plan CODE STATUS: FULL CODE Disposition: Home patient complained of lower extremity numbness and tingling. Venous Doppler negative, DEBRA negative, brain MRI negative, physical assessment WNL Subjective Date/time seen: 10/05/21 06:52 patient continues lying in bed. She complains of a headache. No new findings. Patient continues receive acyclovir. Discontinued IV antibiotics As there is no sign or symptoms of infection. Patient may be experiencing caffeine withdrawal headache, anxiety and tension headaches. Neurology was consulted on 10/04/2021. Review of Systems Review of Systems: All systems reviewed & are unremarkable except as noted in HPI and below Exam Narrative: General: No acute distress. Mental Status: Awake, alert and oriented to person, place, and time with clear speech. Skin: Skin in warm, dry and intact without rashes or lesions. Head: Normocephalic and atraumatic. Eyes: Conjunctivae are clear without exudates or hemorrhage. Sclera is non-icteric. EOM are intact, PERRLA. Ears: The external ear and canal are non-tender and without swelling or discharge. Nose: Nasal mucosa is pink and moist. Septum midline. Nares patent bilaterally. Throat: Oral mucosa pink and moist with good dentition. Tongue midline. Neck: The neck supple without adenopathy. Trachea midline. No JVD. Cardiac: S1 and S2 regular rate and rhythm. No murmurs, gallops, or rubs auscultated. Respiratory: Chest wall symmetric, nontender and without deformity or trauma. Respirations even and unlabored. Lung sounds are clear to auscultation in all lobes bilaterally without wheezes, rhonchi, or rales. Abdominal: Abdomen soft, round and non-tender to palpation. Bowel sounds present and normoactive in all 4 quadrants. Spine: Neck and back with grossly normal curvature, no deformity in appearance or signs of trauma. Extremities: Upper and lower extremities atraumatic without tenderness or deformity. Full range of motion and muscle strength 5/5 to all extremities bilaterally. Neurological: Full and symmetric motor and light touch sensation bilaterally. Cranial nerves II-XII grossly intact. Objective Data Vital Signs Vital Signs: Vital Signs - 24 hr 10/04/21 08:05 10/04/21 13:22 10/04/21 19:58 Temperature 97.1 F L 98.2 F Pulse Rate 96 82 Respiratory Rate 20 12 Blood Pressure 132/71 122/86 Pulse Oximetry 99 98 Oxygen Delivery Room Air 10/04/21 19:58 10/04
[2021-10-05] MEDS: LORazepam (*CRX) 1 MG TABLET PO ×2 (10:46→20:27)
[2021-10-05] MEDS: ESCITALOPRAM OXALATE 10 MG TABLET 20 MG PO (16:27)
[2021-10-05] MEDS: traZODone HCL 50 MG TABLET PO (20:27)
[2021-10-05 23:46] LABS: Mucus Urine Rare /lpf; RBC Urine 21-50 /hpf (0-2); Squamous Epithelial Cell Urine Moderate /hpf (Few)
[2021-10-05 23:49] LABS: Appearance Urine Clear (Clear); Bilirubin Urine Negative (Negative); Blood Urine 2+ (Negative); Color Urine Yellow (Yellow); Glucose Urine UA Negative (Negative); Ketones Urine Negative (Negative); Leukocyte Esterase Ur 1+ LEU/UL (Negative); Nitrate Urine Negative (Negative); Protein Urine Negative (Negative); Specific Grav Ur 1.015 (1.001-1.035); Urobilinogen Urine 0.2 mg/dL (<2.0); pH Urine 6.5 (5.0-9.0)
[2021-10-05 23:57] LABS: Add Urine Microscopic? YES
[2021-10-06] VITALS (8 sets, daily range): BP systolic 116–146; BP diastolic 72–84; PULSE 67–100; RESP 18–20; TEMP 36.2–36.4; O2SAT 96–98
[2021-10-06 00:53] LABS: Herpes Simplex Type 1 DNA PCR Not Detected (Not Detected); Herpes Simplex Type 2 DNA PCR Not Detected (Not Detected)
[2021-10-06] MEDS: ONDANSETRON INJ 4 MG/2 ML VIAL IV PUSH (04:01)
[2021-10-06] MEDS: LORazepam (*CRX) 1 MG TABLET PO ×2 (04:01→17:45)
[2021-10-06] MEDS: SODIUM CHLORIDE 0.9% IV 1,000 ML 125 ML IV CONT (04:08)
[2021-10-06 05:25] LABS: Basophils Percent Auto 0.4 % (0.2-1.2); Eosinophils Absolute Auto 0.1 K/mm3 (0-0.3); Eosinophils Percent Auto 1.5 % (0-4.4); Hemoglobin 9.9 g/dL (12.0-15.0); Immature Granulocyte Absolute 0.03 K/mm3 (0.00-0.031); Immature Granulocyte Percent A 0.3 % (0-0.5); Lymphocytes Absolute Auto 2.71 K/mm3 (0.9-3.2); Lymphocytes Percent Auto 29.8 % (18.3-44.2); Mean Corpuscular HGB Conc 31.9 g/dl (32-36); Mean Corpuscular Hemoglobin 28.2 pg (26-34); Mean Corpuscular Volume 88.3 fl (80-100); Mean Platelet Volume 9.4 fl (7.4-10.4); Monocytes Absolute Auto 0.7 K/mm3 (0.1-0.6); Monocytes Percent Auto 7.3 % (2.6-8.5); Neutrophils Absolute Auto 5.5 K/mm3 (1.3-6.7); Neutrophils Percent Auto 60.7 % (45.5-73.1); Platelet Count Result 283 k/mm3 (150-375); Red Blood Count 3.51 M/mm3 (4.2-5.4); White Blood Count 9.1 K/mm3 (4.5-10.0)
[2021-10-06 05:34] LABS: Alanine Aminotransferase 34 U/L (6-35); Albumin Level 3.3 g/dL (3.5-5.1); Alkaline Phosphatase 71 U/L (38-126); Anion Gap 6 mmol/L (8-16); Aspartate Amino Transferase 32 U/L (14-36); Bilirubin,Total 0.4 mg/dL (0.2-1.3); Blood Urea Nitrogen 8 mg/dL (7-17); Calcium 8.2 mg/dL (8.4-10.2); Carbon Dioxide 28 mmol/L (22-30); Chloride 105 mmol/L (98-107); Estimated CRCL calculation 91 ml/min; Estimated Glomerular Filt Rate > 60; Glucose 92 mg/dL (65-110); Potassium 3.8 mmol/L (3.4-5.0); Sodium 139 mmol/L (137-145)
[2021-10-06] MEDS: HYDROcodone/acetaminophen (*CRX) 5-325 MG TABLET 1 TAB PO ×2 (06:52→09:04)
--- NOTE | 2021-10-06 09:40 | PM.IMPN ---
Progress Note: A&P Assessment and Plan (1) Meningitis: Code(s): G03.9 - Meningitis, unspecified Status: Acute Assessment and Plan: C/O CLANCY x 1 month, +nuchal rigidity, previously treated with muscle relaxers, Z-pack, steroids, and pseudoephedrine outpatient. Lumbar puncture shows clear, colorless fluid, 100% lymphocytes, 2/uL nucleated cells, glucose 65, total protein 37. Culture and gram stain This without growth. HSV negative. lyme and west nile immunoglobulins pending. Continue acyclovir IV Q8 hours IV antibiotics discontinued on 10/05/2021- patient was started on Ceftriaxone 2 grams IV Q12 hours, and Vancomycin IV Q12 hours pharmacy to dose on admission and continued for 72 hours. Monitor neuro status. Continue supportive care - PRN norco PO increased to 7.5/325 q.6 hours, PRN Zofran IV. add bowel regimen. Consult neurology, appreciate assistance and recommendations-- Patient's headache may possibly rate related to anxiety? Eeg ordered and pending (2) New daily persistent headache: Code(s): G44.52 - New daily persistent headache (NDPH) Status: Acute Assessment and Plan: MRI Brain negative, CT head unremarkable. Secondary to meningitis. Appreciate Neuro assistance and recommendation. (3) Anxiety: Code(s): F41.9 - Anxiety disorder, unspecified Status: Acute Assessment and Plan: Patient c/o increased anxiety today (10/03/21) following MRI. Anxiety improved with IV Valium. PRN p.o. lorazepam for acute anxiety. Continue Lexapro 20 mg p.o. daily and HS trazadone PO for sleep. (4) Depression: Code(s): F32.A - Depression, unspecified Status: Chronic Assessment and Plan: continue Lexapro as above (5) Anemia: Code(s): D64.9 - Anemia, unspecified Status: Acute Assessment and Plan: hemoglobin 9.9 and hematocrit 31 %, hemoglobin was 12.2 on admission and hematocrit 38%. maybe a dilutional component. Check iron panel, B12 and folate, reticulocyte count, and ferritin. Monitor for bleeding. IV fluid saline locked repeat CBC tomorrow Plan awaiting EEG results and viral immunoglobins. Time Spent With Patient Time with patient: 15 - 25 minutes Subjective Date/time seen: 10/06/21 09:40 Interval history: Patient is a 36 yo female with no significant medical history presented to the ED for evaluation of headache x1 month, neck pain, myalgia, malaise, and paresthesia. ED work up suggesting meningitis. Patient was found lying in bed. She reports persistent headache That is constant and unchanged from admission. She denies frequent headaches prior to admission and being sick. She denies vision changes, paresthesias, paralysis. She does report abdominal pressure with some nausea, but no vomiting. Appetite is fair. No bowel movement since admission. No chest pain, SOB, flank pain or dysuria. She is concerned that her toes turned blue the day of admission, but endorses that this has not been the case in the past 24 hours. Venous doppler and DEBRA studies negative. Review of Systems Review of Systems: All systems reviewed & are unremarkable except as noted in HPI and below Exam Narrative: General: No acute distress. Mental Status: Awake, alert and oriented to person, place, and time with clear speech. neutral mood and affect. Skin: warm, dry and intact without rashes or lesions. Fair and normal for ethnicity. No cyanosis. No open wounds. Head: Normocephalic and atraumatic. Eyes: Conjunctivae are clear without exudates or hemorrhage. Sclera is non-icteric. EOM are intact, PERRLA. Ears: The external ear and canal are non-tender and without swelling or discharge. Hearing grossly normal. Nose: Nasal mucosa is pink and moist. Nares patent bilaterally. Throat: Oral mucosa pink and moist with good dentition. Tongue midline. Oropharynx unremarkable Neck: No JVD. Cardiac: S1 and S2 regu
[2021-10-06] MEDS: BISACODYL 5 MG TABLET EC PO (10:19)
[2021-10-06] MEDS: HYDROcodone/acetaminophen (*CRX) 7.5-325 MG TABLET 1 TAB PO ×2 (12:14→18:21)
--- NOTE | 2021-10-06 14:55 | WPDNEUROLOGY ---
Neurology EEG Report General Information Date of Study: 10/06/21 TEST Routine EEG DIAGNOSIS Headache and neck pain CONDITION OF RECORDING Drowsy and sleep EEG NUMBER [id number] CLINICAL HISTORY Patient has had a continuous headache for the past month. EEG DESCRIPTION Wakefulness was not observed during the recording so no posterior dominant rhythm can be appreciated. The recording is continuous. No significant asymmetries of background activities are noted. With drowsiness there is a mixture of alpha and theta activity as well as vertex waves. As the patient enters stage II sleep, symmetrical spindles and vertex sharp waves are present. There are no epileptiform discharges or seizures during this recording. Hyperventilation and photic stimulation were not performed. IMPRESSION This is a normal routine EEG recorded in drowsy and asleep states. There are no electrographic seizures identified, nor are there any epileptiform discharges. Please note that a normal EEG cannot exclude a seizure disorder. Clinical correlation is recommended.
[2021-10-06] MEDS: ESCITALOPRAM OXALATE 10 MG TABLET 20 MG PO (17:20)
[2021-10-06] MEDS: SENNA/DOCUSATE SODIUM TABLET 1 TAB PO (20:36)
[2021-10-06] MEDS: traZODone HCL 50 MG TABLET PO (20:37)
[2021-10-07] MEDS: HYDROcodone/acetaminophen (*CRX) 7.5-325 MG TABLET 1 TAB PO ×4 (00:01→18:38)
[2021-10-07] MEDS: KETOROLAC 30 MG/ML VIAL (*BKC) IV PUSH (03:33)
[2021-10-07 05:31] VITALS: BP 148/91; PULSE 64; RESP 18; TEMP 35.8; O2SAT 100
[2021-10-07 06:54] LABS: Hematocrit 33.4 % (37.0-47.0); Hemoglobin 10.5 g/dL (12.0-15.0); Mean Corpuscular HGB Conc 31.4 g/dl (32-36); Mean Corpuscular Hemoglobin 28.1 pg (26-34); Mean Corpuscular Volume 89.3 fl (80-100); Mean Platelet Volume 9.5 fl (7.4-10.4); Platelet Count Result 319 k/mm3 (150-375); Red Blood Count 3.74 M/mm3 (4.2-5.4); Red Cell Distribution Width 12.8 % (11.5-14.5); Reticulocyte Hemoglobin Conten 35.9 pg (28.2-35.7); Reticulocyte Percent 1.55 % (0.7-4.3); Reticulocytes Absolute 0.06 B/L (32.2-175.7); White Blood Count 9.1 K/mm3 (4.5-10.0)
[2021-10-07 07:26] LABS: Iron 55 ug/dL (37-170)
[2021-10-07 07:34] LABS: Percent Iron Saturation 18 % (20-50)
[2021-10-07 08:50] VITALS: RESP 18; O2SAT 100
[2021-10-07 09:17] LABS: Folic Acid 8.7 ng/mL (2.76->20)
--- NOTE | 2021-10-07 10:15 | PM.IMPN ---
Progress Note: A&P Assessment and Plan (1) Meningitis: Code(s): G03.9 - Meningitis, unspecified Status: Acute Assessment and Plan: C/O CLANCY x 1 month, +nuchal rigidity, previously treated with muscle relaxers, Z-pack, steroids, and pseudoephedrine outpatient by PCP. Lumbar puncture shows clear, colorless fluid, 100% lymphocytes, 2/uL nucleated cells, glucose 65, total protein 37. Opening pressure documented in ED as 27 mmHG. Culture and gram stain negative. HSV negative. Lyme and west nile immunoglobulins pending. Acyclovir discontinued 10/06/21 for negative HSV. IV antibiotics discontinued on 10/05/2021- patient was treated with Ceftriaxone 2 grams IV Q12 hours, and Vancomycin IV Q12 hours pharmacy to dose on admission and continued for 72 hours. Monitor neuro status. Continue supportive care - PRN norco PO increased to 7.5/325 q.6 hours, PRN Zofran IV. Neurology consulted and appreciate recommendations. I discussed the patient's case with Neurology today, 10/07/21. 10/06/21 EEG negative. No seizure activity noted. 10/07/21 MRV ordered and pending to rule out venous thrombus. Added naproxen 500 mg PO BID x 2 weeks, per Neuro. (2) New daily persistent headache: Code(s): G44.52 - New daily persistent headache (NDPH) Status: Acute Assessment and Plan: Bilateral headache x 1 month. MRI Brain negative, CT head unremarkable. Secondary to meningitis. Appreciate Neuro assistance and recommendation. Management as above. Patient with additional symptoms of intermittent bluish-tinge to toes (notable when legs dependent), c/o some joint pain. Normocytic, normochromic anemia noted, but may be hospital acquired. UA +1 blood. Fatigue is present for the past month. Check GABBY with reflex. Naproxen scheduled added. (3) Anxiety: Code(s): F41.9 - Anxiety disorder, unspecified Status: Acute Assessment and Plan: Patient c/o increased anxiety and tearfulness this admission. PRN p.o. lorazepam for acute anxiety. Continue Lexapro 20 mg p.o. daily and HS trazadone PO for sleep. (4) Depression: Code(s): F32.A - Depression, unspecified Status: Chronic Assessment and Plan: continue Lexapro as above (5) Anemia: Code(s): D64.9 - Anemia, unspecified Status: Acute Assessment and Plan: hemoglobin 9.9 and hematocrit 31 %, hemoglobin was 12.2 on admission and hematocrit 38%. maybe a dilutional component. Iron panel- serum iron normal, TIBC normal, sat slightly low 18%. B12 264 and folate 8.7, % reticulocyte count normal, and ferritin normal Monitor for bleeding. IV fluid saline locked Plan CODE STATUS: FULL CODE Disposition: home Time Spent With Patient Time with patient: 25 - 35 minutes (>50% time answering patient questions and emotional support. ) Subjective Date/time seen: 10/07/21 10:15 Patient is a 36 yo female with no significant medical history presented to the ED for evaluation of headache x1 month, neck pain, myalgia, malaise, and paresthesia. ED work up suggesting meningitis.? Patient is very tearful today. She reports feeling confused about the plan of care. She reports only feeling relief when she is asleep after her pain medication. She continues to have bilateral headache with neck and lower back pain. She denies vision changes, paresthesia, paralysis or incontinence. She reports her right big toe turned bluish while walking today. Review of Systems Review of Systems: All systems reviewed & are unremarkable except as noted in HPI and below Exam Narrative: General: Tearful. No acute respiratory distress. Mental Status: Awake, alert and oriented to person, place, and time with clear speech. Cooperative. Skin: warm, dry and intact without rashes or lesions. Fair. No cyanosis noted to all extremities or digits. No open wounds. HEENT: Normocephalic and atraumatic. Conjunctivae are clear wit
[2021-10-07] MEDS: NAPROXEN 500 MG TABLET PO ×2 (10:41→16:06)
[2021-10-07] MEDS: LORazepam (*CRX) 1 MG TABLET PO (10:54)
--- NOTE | 2021-10-07 12:23 | WPDNEUROPN ---
Progress Note: A&P Assessment and Plan (1) New daily persistent headache: Code(s): G44.52 - New daily persistent headache (NDPH) Status: Acute Assessment and Plan: New daily headache for the past month. Neuroimaging has been negative for secondary cause. Infectious work-up has been negative so far. Will need to rule out other secondary causes such as idiopathic intracranial hypertension and cortical sinus venous thrombosis, although funduscopic exam was normal. Description of headaches seems most consistent with tension-type headache. There may also be transient worsening of her headache post-lumbar puncture. Plan - Schedule Naproxen 500mg BID x 2 weeks - If pain is refractory, can give Benadryl 25mg and Zofran 4mg with the dose of Naproxen - Obtain MRV - Try to avoid opioids Subjective Date/time seen: 10/07/21 12:23 Interval history: Jazmine Antoine is a 36 year old female with a history of depression who presented with a one month history of daily persistent headache. When she was first evaluated, she was noted to have nucal rigidity, raising concern for meningitic process. She had an LP which had a cell count of only 2, glucose 65 and protein 37 which is within normal range. She was started empirically on antibiotics, but were discontinued once her cultures came back negative. CSF studies that are still pending include Lyme titers and HSV PCR. She has had a CT head and MRI brain wo contrast, both of which were negative. She continues to complain of williamson headache. Her PRNs include toradol, norco, and tylenol. Headache started September 06 2021. She describes the headache as holocranial, crown and band like. It is a pressure type pain. She denies any throbbing or stabbing. The pain radiates down her neck to her shoulders. She has some photophobia and phonophobia. She denies any nausea or vomiting. She denies any double vision or blurry vision. She has not had any headache free periods since her headaches started, although the severity seems to wax and wane. The only thing that seems to help her is sleeping it off. She has previously received migraine cocktails but did not find them helpful. She has an IUD, no OCP use. She does not smoke. No family history of migraines. Mother has history of epilepsy. Review of Systems Constitutional: Constitutional: Reports fatigue Eyes: Eyes: Denies blurry vision and Reports photophobia ENT: Reports Normal hearing present and Reports tinnitus Cardiovascular: Cardiovascular: Reports no additional cardiovascular complaints Respiratory: Respiratory: Reports no additional respiratory complaints Gastrointestinal: Gastrointestinal: Reports abdominal pain Genitourinary: Genitourinary: Reports no additional female genitourinary complaints Musculoskeletal: Musculoskeletal: Reports back pain, Reports myalgias and Reports neck pain Integumentary/Breasts: Comments: color change in lower extremities Neurologic: Reports as per HPI and Reports headache(s) Psychiatric: Psychiatric: Reports anxiety and Reports depression Exam Const: General: uncomfortable HENMT: Mouth: Yes moist mucous membranes Eyes: General: appearance normal, both eyes and all related structures Pupils: Equal, round and reactive pupils present EOM: EOMs intact bilaterally Other: Funduscopic exam normal bilaterally Resp: Effort & Inspection: normal respiratory effort Skin: General skin exam: normal color and no rashes or lesions noted Neuro: Other: AOx3, Pupils equal and reactive bilaterally, EOMI, face symmetric, facial sensation intact, tongue protrudes midline, palate midline. Shoulder shrug normal. Strength 5/5 throughout. Sensation intact throughout. Reflexes 2+ in biceps, patellar, and AJ bilaterally, FNF normal bilaterally. Language comprehension and fluency intact. Gait deferred. Extrem: General: normal to inspection Psych: Mental Status: mental status grossly normal Affect: normal affect Ob
[2021-10-07 14:00] VITALS: BP 121/79; PULSE 64; RESP 16; TEMP 36.5; O2SAT 98
[2021-10-07 15:03] LABS: West Nile Virus, IgM <0.90 index (<0.90)
[2021-10-07] MEDS: ESCITALOPRAM OXALATE 10 MG TABLET 20 MG PO (16:06)
[2021-10-07 19:41] VITALS: BP 168/91; PULSE 62; RESP 18; TEMP 36; O2SAT 97
[2021-10-07] MEDS: traZODone HCL 50 MG TABLET PO (20:30)
[2021-10-07] MEDS: SENNA/DOCUSATE SODIUM TABLET 1 TAB PO (20:30)
[2021-10-08] MEDS: HYDROcodone/acetaminophen (*CRX) 7.5-325 MG TABLET 1 TAB PO ×2 (00:41→07:23)
[2021-10-08 04:38] VITALS: BP 116/73; PULSE 67; RESP 16; TEMP 35.8; O2SAT 98
[2021-10-08] MEDS: NAPROXEN 500 MG TABLET PO ×2 (08:37→17:42)
--- NOTE | 2021-10-08 13:07 | PC.NURSE ---
The patient reports discoloration of right hand earlier this morning. The patient also reported pain and tingling in the right hand. This was observed by the nurse. The patient was also reporting dizziness and fatigue, the use of a SaraSteady was required to get the patient back to bed. Upon return to bed, the patient stated a resolution of symptoms recently reported of the right hand, and the nurse observed a return to baseline.
--- NOTE | 2021-10-08 13:55 | PM.IMPN ---
Progress Note: A&P Assessment and Plan (1) New daily persistent headache: Code(s): G44.52 - New daily persistent headache (NDPH) Status: Acute Assessment and Plan: Bilateral headache x 1 month. MRI Brain negative, CT head unremarkable. Unlikely secondary to meningitis, stroke, or intracranial venous thrombus. No prior history of migraine headaches. Appreciate Neuro assistance and recommendation. Patient with additional symptoms of intermittent bluish-tinge to toes (notable when legs dependent), c/o some joint pain. Normocytic, normochromic anemia noted, but may be hospital acquired. UA +1 blood. Fatigue is present for the past month. GABBY with reflex pending. 10/07/21 Naproxen scheduled added BID. Avoid opiates per Neuro. 10/08/21 Will try Reglan 10 mg IV x1, Benadryl 50 mg IV x1, and Toradol 30 mg IV x1 now. ?migraine versus tension-type headache. MRV negative. Ophthalmic exam without s/s ICP. (2) Raynaud phenomenon: Code(s): I73.00 - Raynaud's syndrome without gangrene Status: Acute Assessment and Plan: Patient reports intermittent discoloration to toes and fingers that is transient. Discoloration to toes is most notable when ambulating. She had an episode of discoloration to the fingertips of her right hand today and cold. Venous and arterial imaging BLE negative. Likely vasospasm from Raynaud's phenomenon. Trial verapamil ER 120 mg at HS. (3) Meningitis: Code(s): G03.9 - Meningitis, unspecified Status: Acute Assessment and Plan: C/O CLANCY x 1 month, +nuchal rigidity, previously treated with muscle relaxers, Z-pack, steroids, and pseudoephedrine outpatient by PCP. Lumbar puncture shows clear, colorless fluid, 100% lymphocytes, 2/uL nucleated cells, glucose 65, total protein 37. Opening pressure documented in ED as 27 mmHG. Culture and gram stain negative. HSV negative. Lyme and west nile immunoglobulins pending. Acyclovir discontinued 10/06/21 for negative HSV. IV antibiotics discontinued on 10/05/2021- patient was treated with Ceftriaxone 2 grams IV Q12 hours, and Vancomycin IV Q12 hours pharmacy to dose on admission and continued for 72 hours. Monitor neuro status. Continue supportive care - PRN norco PO increased to 7.5/325 q.6 hours, PRN Zofran IV. Neurology consulted and appreciate recommendations. I discussed the patient's case with Neurology today, 10/07/21. 10/06/21 EEG negative. No seizure activity noted. 10/07/21 MRV ordered and pending to rule out venous thrombus. Added naproxen 500 mg PO BID x 2 weeks, per Neuro. 10/08/21 All cultures and viral panels negative so far. Lyme immunoglobulins pending. Meningitis unlikely cause of headache. (4) Anxiety: Code(s): F41.9 - Anxiety disorder, unspecified Status: Acute Assessment and Plan: Patient c/o increased anxiety and tearfulness this admission. PRN p.o. lorazepam for acute anxiety. Continue Lexapro 20 mg p.o. daily and HS trazadone PO for sleep. (5) Depression: Code(s): F32.A - Depression, unspecified Status: Chronic Assessment and Plan: continue Lexapro as above (6) Anemia: Code(s): D64.9 - Anemia, unspecified Status: Acute Assessment and Plan: hemoglobin 9.9 and hematocrit 31 %, hemoglobin was 12.2 on admission and hematocrit 38%. maybe a dilutional component. Iron panel- serum iron normal, TIBC normal, sat slightly low 18%. B12 264 and folate 8.7, % reticulocyte count normal, and ferritin normal Monitor for bleeding. IV fluid saline locked Presume hospital induced from frequent blood work. Plan CODE STATUS: FULL CODE Disposition: home Additional Plan All of patient's questions answered to the best of my ability. >50% time spent with patient education. Time Spent With Patient Time with patient: 15 - 25 minutes Subjective Date/time seen: 10/08/21 13:55 Interval history: Patient
[2021-10-08 14:00] VITALS: BP 141/83; PULSE 71; RESP 20; TEMP 36.1; O2SAT 100
[2021-10-08] MEDS: diphenhydrAMINE HCl INJ 50 MG/ML VIAL IV PUSH (14:59)
[2021-10-08] MEDS: KETOROLAC 30 MG/ML VIAL (*BKC) IV PUSH (14:59)
[2021-10-08] MEDS: METOCLOPRAMIDE HCL INJ 10 MG/2 ML VIAL IV PUSH (14:59)
[2021-10-08 15:29] VITALS: TEMP 36.1
[2021-10-08] MEDS: ESCITALOPRAM OXALATE 10 MG TABLET 20 MG PO (17:42)
[2021-10-08] MEDS: SUMAtriptan SUCCINATE 25 MG TABLET 50 MG PO ×2 (17:44→20:42)
[2021-10-08 20:29] VITALS: BP 166/84; PULSE 55; RESP 18; TEMP 36.2; O2SAT 99
[2021-10-08] MEDS: VERAPAMIL HCL ER 120 MG TABLET PO (20:42)
[2021-10-08] MEDS: SENNA/DOCUSATE SODIUM TABLET 1 TAB PO (20:43)
[2021-10-08] MEDS: traZODone HCL 50 MG TABLET PO (20:43)
[2021-10-08 20:46] LABS: Pregnancy On Board Control Positive; Urine Pregnancy Test Negative
[2021-10-08 21:46] LABS: Lyme Disease Ab (IgM), Blot Negative (Negative); Lyme Disease Ab(IgG), Blot Negative (Negative)
[2021-10-08] MEDS: LORazepam (*CRX) 1 MG TABLET PO (23:33)
[2021-10-09 01:00] VITALS: BP 152/84
[2021-10-09 05:50] LABS: Hematocrit 35.8 % (37.0-47.0); Hemoglobin 11.7 g/dL (12.0-15.0); Mean Corpuscular HGB Conc 32.7 g/dl (32-36); Mean Corpuscular Hemoglobin 28.5 pg (26-34); Mean Corpuscular Volume 87.3 fl (80-100); Platelet Count Result 352 k/mm3 (150-375); Red Cell Distribution Width 12.8 % (11.5-14.5); White Blood Count 9.5 K/mm3 (4.5-10.0)
[2021-10-09 06:02] VITALS: BP 98/62; PULSE 64; RESP 18; TEMP 36.6; O2SAT 97
[2021-10-09 07:00] LABS: Anion Gap 9 mmol/L (8-16); Blood Urea Nitrogen 21 mg/dL (7-17); Calcium 9.7 mg/dL (8.4-10.2); Carbon Dioxide 25 mmol/L (22-30); Chloride 102 mmol/L (98-107); Estimated CRCL calculation 91 ml/min; Estimated Glomerular Filt Rate > 60; Glucose 80 mg/dL (65-110); Potassium 4.1 mmol/L (3.4-5.0); Sodium 136 mmol/L (137-145)
[2021-10-09] MEDS: DOXYCYCLINE HYCLATE 100 MG TABLET PO (09:56)
[2021-10-09] MEDS: NAPROXEN 500 MG TABLET PO (09:56)
[2021-10-09] MEDS: diphenhydrAMINE HCl CAP 25 MG CAPSULE PO (10:18)
--- NOTE | 2021-10-09 11:47 | ECG_ITS ---
Measurements Intervals [place] Rate: 63 P: 45 CO: 158 QRS: 66 QRSD: 102 T: 29 QT: 445 QTc: 457 Interpretive Statements SINUS RHYTHM NONSPECIFIC T-WAVE ABNORMALITY ABNORMAL ECG Electronically Signed On 10-09-2021 13:58:20 CDT by Daryl Scruggs M.D.
--- NOTE | 2021-10-09 12:09 | WPDNEUROPN ---
Progress Note: A&P Assessment and Plan (1) New daily persistent headache: Code(s): G44.52 - New daily persistent headache (NDPH) Status: Acute Assessment and Plan: New daily headache for the past month. Neuroimaging has been negative for secondary cause. MRI and MRV negative. Infectious work-up has been negative so far, except Lyme IgG which was positive. Description of headaches seems most consistent with tension-type headache. Although my funduscopic exam was normal, opening pressure from LP was 27 which is borderline elevated. Will treat as IIH. While I did not notice any papilledema I would like for her to get a dilated eye exam this upcoming week for confirmation. I would like her to follow-up in [facility] [place] [facility] in 2-3 weeks. Plan - Discontinue Naproxen - Start Diamox 250mg BID x 3 days, then increase to 500mg BID - Avoid tetracyclines for now - Dilated eye exam in the upcoming week - patient has already scheduled this - Follow-up in [facility] [place] in 2-3 weeks Subjective Date/time seen: 10/09/21 12:09 Interval history: Jazmine Antoine is a 36 year old female with a history of depression who presented with a one month history of daily persistent headache. When she was first evaluated, she was noted to have nucal rigidity, raising concern for meningitic process. She had an LP which had a cell count of only 2, glucose 65 and protein 37 which is within normal range. Opening pressure was 27. She was started empirically on antibiotics, but were discontinued once her cultures came back negative. She has had a CT head and MRI brain wo contrast, both of which were negative. Headache started September 06 2021. She describes the headache as holocranial, crown and band like. It is a pressure type pain. She denies any throbbing or stabbing. The pain radiates down her neck to her shoulders. She has some photophobia and phonophobia. She denies any nausea or vomiting. She denies any double vision or blurry vision. She has not had any headache free periods since her headaches started, although the severity seems to wax and wane. The only thing that seems to help her is sleeping it off. She has previously received migraine cocktails but did not find them helpful. Tried Naproxen 500mg BID scheduled and Imitrex 50mg once, neither helped her pain. She declined IV VPA. Continues to complain of significant headache without any improvement. Review of Systems Constitutional: Constitutional: Reports fatigue and Reports headache(s) Eyes: Eyes: Denies blurry vision and Reports photophobia ENT: Reports Normal hearing present, Reports headache(s), Reports neck pain and Reports tinnitus Cardiovascular: Cardiovascular: Reports no additional cardiovascular complaints Respiratory: Respiratory: Reports no additional respiratory complaints Gastrointestinal: Gastrointestinal: Reports abdominal pain Genitourinary: Genitourinary: Reports no additional female genitourinary complaints Musculoskeletal: Musculoskeletal: Reports back pain, Reports myalgias and Reports neck pain Integumentary/Breasts: Comments: color change in finger tips Neurologic: Reports as per HPI, Reports Normal hearing present and Reports headache(s) Psychiatric: Psychiatric: Reports anxiety and Reports depression Endocrine: Endocrine: Reports fatigue Exam Const: General: uncomfortable HENMT: Mouth: Yes moist mucous membranes Eyes: General: appearance normal, both eyes and all related structures Pupils: Equal, round and reactive pupils present EOM: EOMs intact bilaterally Resp: Effort & Inspection: normal respiratory effort Skin: General skin exam: normal color and no rashes or lesions noted Neuro: Cranial nerves: Yes Equal, round and reactive pupils present and Yes Normal hearing present Other: AOx3, Pupils equal and reactive bilaterally, EOMI, face symmetric, facial sensation intact, tongue protrudes midline, palate midline. Shoulder shrug normal. Strengt
[2021-10-09 12:51] LABS: Troponin I < 0.012 ng/mL (0.000-0.034)
[2021-10-09 13:30] VITALS: BP 116/88; PULSE 62; RESP 16; TEMP 37.1; O2SAT 99
[2021-10-09] MEDS: HYDROcodone/acetaminophen (*CRX) 7.5-325 MG TABLET 1 TAB PO (13:38)
--- NOTE | 2021-10-09 14:43 | PM.DS ---
DS: Admitting Diagnosis Discharge Date 10/09/2021 1611 Admitting Diagnosis Meningitis, unspecified New daily persistent headache DS: Discharge Diagnosis Discharge Diagnosis (1) New daily persistent headache: Code(s): G44.52 - New daily persistent headache (NDPH) Status: Acute (2) Raynaud phenomenon: Code(s): I73.00 - Raynaud's syndrome without gangrene Status: Acute (3) COOK [place]IP Lyme disease: Code(s): A69.22 - Other neurologic disorders in Lyme disease Status: Acute Assessment and Plan: Possible lyme disease (presumed acute) with neurologic symptoms (4) Anemia: Qualifiers: Anemia type: other cause Other causes of anemia: other cause, not classified Qualified Code(s): D64.89 - Other specified anemias Code(s): D64.9 - Anemia, unspecified Status: Acute Assessment and Plan: Hospital-acquired, mild (5) Anxiety: Code(s): F41.9 - Anxiety disorder, unspecified Status: Chronic (6) Depression: Code(s): F32.A - Depression, unspecified Status: Chronic DS: Summary Hospital Course Reason for hospitalization: Headache and color changes to toes Hospital Course: Jazmine Antoine is a 36-year-old female with medical history significant for depression and anxiety.? She presented to the emergency room for evaluation of persistent daily headache for appoximately 1 month. She reported the headache is pressure-like, involving her whole head and neck, and has been evaluated by her PCP and at Urgent Care. She had been treated with muscle relaxers, z-pack, steroids, Aleve, and acyclovir. She reports no relief from any of these medications. She reported associated brain fogginess, nausea without emesis, whole body aching, and new bluish-tinged discoloration to several toes on both feet that is transient. She was started on Lexapro in February. The patient denied night sweats, rigors, chills, fevers, cough, sputum production, changes of her vision, rashes, weight loss, joint swelling, diarrhea, or abdominal pain.?In the ED, she denied camping, tick exposures, sick contacts. She has a history of HSV1 and takes PRN acyclovir. In the ED, vitals were T97.9F, HR 113, HR 18, BP 140/92, and spo2 98% on room air. Lab work demonstrated WBC 16, H/H 12.2/36.2, glucose 123, sodium 137, and normal renal function. LP?was done in the ED and demonstrated opening pressure 27 mmHg and elevated? lymphocyte count. A CT of the head did not show acute intracranial abnormality, a chest x-ray negative for acute disease. The patient was admitted to the medical floor and started on IV Acyclovir Q8 hours, Ceftriaxone 2 grams Q12 hours, Vancomycin Q12 hours IV pharmacy to dose, and IV fluids for presumed meningitis. CSF culture, gram stain, lyme immunoglobulins, West Nile and HSVI and II were sent. Mononucleosis PCR was negative. COVID19 rapid and PCR tests were negative. Toxicology screen was negative. MRI brain was obtained and negative for acute abnormality. Venous and arterial dopplers were negative for stenosis or thrombus. Morphine IV and PO narcotics were ineffective for pain control. Neurology was consulted for assistance with management. CSF gram stain and culture were negative for bacterial growth making bacterial meningitis unlikely. Antibiotics were discontinued after 72 hours. CSF HSVI/II were negative and acyclovir was discontinued on 10/06/21. [place] Nile panel was negative making viral meningitis, unlikely. EEG was negative for seizure-like activity. MRV was obtained and negative for venous thrombus. Naproxen 500 mg PO BID, with benadryl and zofran adjuncts were started on 10/07/21 without relief in symptoms. Nondilated ophthalamic exam, by Neurology, was negative for papilloedema suggesting ICP. IV Reglan 10 mg, IV benadryl 50 mg and Toradol 30 mg IV x1 were given and ineffective for aborting her headache. Sumatriptan 50 mg PO given x2 was also ineffective. Patient was
[2021-10-09] MEDS: ESCITALOPRAM OXALATE 10 MG TABLET 20 MG PO (15:53)
--- NOTE | 2021-10-09 16:36 | PC.NURSE ---
On 10/09/21, the License Pending Nurse, Micky Courtney, provided care and completed [employer] documentation on this patient. I have reviewed the SPLICING MACHINE OPERATOR's documentation and agree with the findings.
== END 2021-10-09 16:20 | disposition home or self-care (01) | DRG 103 ==
LOC: ANHED 20:20 → ANH2MED 20:54
PROVIDERS: Nurse Practitioner; Nurse Practitioner Family; Student in an Organized Health Care Education/Training Program; Admitting Provider Internal Medicine; Emergency Provider General Practice; PCP Family Medicine; Visit Provider Internal Medicine
DX: G44.52 New daily persistent headache (NDPH) (principal); A69.22 Other neurologic disorders in Lyme disease; D64.89 Other specified anemias; I73.00 Raynaud's syndrome without gangrene; F41.8 Other specified anxiety disorders; B00.9 Herpesviral infection, unspecified; Z20.822 Contact with and (suspected) exposure to COVID-19; Z90.49 Acquired absence of other specified parts of digestive tract
CPT/HCPCS: 36415; 62270; 70450; 70544; 70551; 71046; 80048; 80053; 80202; 80307; 81001; 81025; 82607; 82728; 82746; 82945; 83540; 83550; 83605; 83690; 83735; 84157; 84443; 84484; 85025; 85027; 85046; 85610; 85730; 86140; 86308; 86617; 86788; 87040; 87070; 87086; 87205; 87529; 89051; 93005; 93922; 93970; 95816; 96361; 96365; 96366; 96367; 96375; 96376; 99285; A9270; C9803; G0378; J0131; J0133; J0696; J1200; J1885; J2270; J2405; J2765; J3360; J3370; J7030; J7060; J7120; U0003; U0005

== ENCOUNTER 2021-11-14 15:00 | Outpatient (CLI) | payer OTHER, SELFPAY ==
[2021-11-14 15:39] LABS: Anion Gap 11 mmol/L (8-16); Blood Urea Nitrogen 15 mg/dL (7-17); Calcium 9.2 mg/dL (8.4-10.2); Carbon Dioxide 19 mmol/L (22-30); Chloride 110 mmol/L (98-107); Estimated Glomerular Filt Rate > 60; Glucose 86 mg/dL (65-110); Potassium 3.9 mmol/L (3.4-5.0); Sodium 140 mmol/L (137-145)
== END 2021-11-14 15:01 | disposition home or self-care (01) ==
LOC: ANHLAB 15:05
PROVIDERS: PCP Family Medicine; Visit Provider Student in an Organized Health Care Education/Training Program
DX: R51.9 Headache, unspecified (principal)
CPT/HCPCS: 36415; 80048

== ENCOUNTER 2021-11-23 09:33 | Emergency (ER) | payer OTHER, SELFPAY ==
--- NOTE | ~2021-11-23 | XR_ITS ---
EXAMINATION: XR shoulder LT min 2V DATE: 11/23/2021 10:01 INDICATION: Left shoulder pain post fall TECHNIQUE: AP and transscapular Y views of the left shoulder were obtained. COMPARISON: None FINDINGS: Normal alignment. No fracture. Glenohumeral joint is normal. Acromioclavicular joint is normal. Soft tissues are unremarkable. Left lung is clear with no pleural effusion or pneumothorax. IMPRESSION: Negative left shoulder radiographs. Reviewed, dictated and finalized at location A.
[2021-11-23 09:41] VITALS: BP 120/87; PULSE 78; RESP 20; TEMP 36.3; O2SAT 100
--- NOTE | 2021-11-23 09:42 | ED.HEATRA ---
HPI - Head Injury General Chief complaint: Fall Stated complaint: FACIAL INJURY Time Seen by Provider: 11/23/21 09:48 Mode of arrival: ambulatory Limitations: no limitations History of Present Illness HPI Narrative: 36-year-old female presents concern for fall. Reports just prior to arrival she tripped on an uneven sidewalk, fell hitting her face on the side of the sidewalk. She reports broken teeth, abrasion to her face, left shoulder pain. She reports she used ice for her face. She denies vomiting, new headache, loss of consciousness. She reports pain to the upper lip MD Complaint: head injury Related Data Home Medications Medication Instructions Recorded Confirmed escitalopram oxalate 20 mg tablet 20 mg PO DAILY 09/09/21 10/02/21 (Lexapro) levonorgestrel 20 mcg/24 hours (7 1 device intrauterine MONTHLY 09/09/21 10/02/21 yrs) 52 mg intrauterine device (Mirena) Allergies Allergy/AdvReac Type Severity Reaction Status Date / Time No Known Allergies Allergy Mild Verified 10/31/21 09:05 Review of Systems Review of Systems: CONSTITUTIONAL: Denies malaise, chills, sweats, or fever. EYES: Denies visual changes HEENT: Reports broken teeth CARDIOVASCULAR: Denies chest pain, palpitations, or edema. RESPIRATORY: Denies cough or dyspnea. GASTROINTESTINAL: Denies nausea, vomiting SKIN: Reports abrasion above the top lip MUSCULOSKELETAL: Reports left shoulder pain NEUROLOGIC: Denies numbness, weakness, or headache. All systems reviewed & are unremarkable except as noted in HPI and below PMFSH Past Medical History Medical History (Updated 11/23/21 @ 10:05 by Ragini Garcia NP) Anxiety Change of skin color Complaint of paresthesia Depression Surgical History Surgical History Hx of appendectomy Family History Family History Mother Congestive heart failure Rheumatoid arthritis Epilepsy Father Congestive heart failure Social History Social History Smoking status: Never smoker Alcohol intake: current Substance use: never Substance use type: does not use Last use: Drinks alcohol socially, but very rare. Spiritual care concerns: No Comments At time of signature, agree with nursing past medical, surgical, social and family history. There is no relevant family history pertinent to the presenting complaint Exam Narrative: GENERAL: Nontoxic appearing and in no acute distress. HEAD: Normocephalic, atraumatic. EYES: PERRLA, sclera clear, and EOMI. No nystagmus. ENT: Nares clear, no rhinorrhea or epistaxis. Mucous membranes moist. TM pearly berg with sharp light reflex bilaterally; no tragal tenderness. Teeth #8 & #9 broken, do not appear to be loose, no oral soft tissue trauma noted NECK: Supple. CHEST: No respiratory distress. Speaks in full sentences. HEART: Regular rate and rhythm. No murmur heard. Normal peripheral pulses. ABDOMEN: Soft, nontender, nondistended, normal active bowel sounds, no palpable masses. EXTREMITIES: Left upper extremity range of motion grossly normal, no edema, normal strength with abduction and abduction SKIN: Warm, dry. Superficial abrasion noted above the upper lip and to the anterior left shoulder NEURO: Alert and oriented x3. No focal deficits. Cranial nerves II through XII grossly intact PSYCH: Tearful Course Course Emergency Course: Patient reports she was advised by her healthcare provider not to take any pain medications, including Tylenol and ibuprofen, due to her already prescribed medications. Patient is aware of diagnosis, understands and agrees to treatment plan. Anticipatory guidance given. Patient agrees to follow-up as directed and is aware of reasons to seek care at the emergency department. Portions of this record may have been created with voice recognition softw
== END 2021-11-23 10:24 | disposition home or self-care (01) ==
PROVIDERS: Emergency Provider Nurse Practitioner; PCP Family Medicine
DX: S02.5XXA Fracture of tooth (traumatic), initial encounter for closed fracture (principal); W01.0XXA Fall on same level from slipping, tripping and stumbling without subsequent striking against object, initial encounter; M25.512 Pain in left shoulder; F41.9 Anxiety disorder, unspecified; F32.A Depression, unspecified
CPT/HCPCS: 73030; 99213; G0463

== ENCOUNTER 2021-12-11 15:15 | Outpatient (CLI) | payer OTHER, SELFPAY ==
[2021-12-11 16:09] LABS: Basophils Absolute Auto 0.1 K/mm3 (0.0-0.1); Basophils Percent Auto 0.5 % (0.2-1.2); Eosinophils Absolute Auto 0.1 K/mm3 (0-0.3); Eosinophils Percent Auto 0.6 % (0-4.4); Hematocrit 39.3 % (37.0-47.0); Hemoglobin 12.6 g/dL (12.0-15.0); Immature Granulocyte Absolute 0.06 K/mm3 (0.00-0.031); Immature Granulocyte Percent A 0.5 % (0-0.5); Lymphocytes Absolute Auto 2.98 K/mm3 (0.9-3.2); Lymphocytes Percent Auto 22.6 % (18.3-44.2); Mean Corpuscular HGB Conc 32.1 g/dl (32-36); Mean Corpuscular Hemoglobin 28.7 pg (26-34); Mean Corpuscular Volume 89.5 fl (80-100); Monocytes Absolute Auto 0.7 K/mm3 (0.1-0.6); Neutrophils Absolute Auto 9.3 K/mm3 (1.3-6.7); Neutrophils Percent Auto 70.8 % (45.5-73.1); Platelet Count Result 407 k/mm3 (150-375); Red Blood Count 4.39 M/mm3 (4.2-5.4); Red Cell Distribution Width 13.7 % (11.5-14.5); White Blood Count 13.2 K/mm3 (4.5-10.0)
[2021-12-11 16:26] LABS: Alanine Aminotransferase 45 U/L (6-35); Albumin Level 4.6 g/dL (3.5-5.1); Alkaline Phosphatase 96 U/L (38-126); Anion Gap 15 mmol/L (8-16); Aspartate Amino Transferase 31 U/L (14-36); Bilirubin,Total 0.4 mg/dL (0.2-1.3); Blood Urea Nitrogen 16 mg/dL (7-17); CRP < 0.5 mg/dL (<1.0); Calcium 9.3 mg/dL (8.4-10.2); Carbon Dioxide 18 mmol/L (22-30); Chloride 109 mmol/L (98-107); Estimated Glomerular Filt Rate > 60; Glucose 88 mg/dL (65-110); Potassium 3.5 mmol/L (3.4-5.0); Sodium 142 mmol/L (137-145)
[2021-12-11 16:36] LABS: Erythrocyte Sedimentation Rate 21 mm/hr (0-20)
[2021-12-11 17:00] LABS: Complement C3 136 mg/dL (88-165); Rheumatoid Factor < 8.6 IU/ML (<12)
[2021-12-16 08:48] LABS: SS-A <1.0; SS-B <1.0
[2021-12-17 04:43] LABS: Angiotensin Converting Enzyme 22.6 U/L (9-67)
[2021-12-17 13:19] LABS: Anti Cyclic Citrullinated Pept <16 Units (<20)
[2021-12-18 07:07] LABS: Lupus dRVVT Screen 38 sec (<=45); PTT-LA Screen 36 sec (<=40)
== END 2021-12-11 15:16 | disposition home or self-care (01) ==
LOC: ANHLAB 15:18
PROVIDERS: PCP Family Medicine; Visit Provider Internal Medicine
DX: M19.90 Unspecified osteoarthritis, unspecified site (principal); G44.52 New daily persistent headache (NDPH); R20.0 Anesthesia of skin; R41.3 Other amnesia; R32 Unspecified urinary incontinence; I73.00 Raynaud's syndrome without gangrene
CPT/HCPCS: 36415; 80053; 82164; 85025; 85613; 85652; 85730; 86140; 86160; 86200; 86225; 86235; 86430

== ENCOUNTER 2021-12-12 08:52 | Outpatient (CLI) | payer OTHER, SELFPAY ==
--- NOTE | ~2021-12-12 | XR_ITS ---
EXAMINATION:XR cervical spine 4-5V DATE: 12/12/2021 09:09 INDICATION: Daily persistent headache TECHNIQUE: AP, lateral, lateral swimmers and odontoid views of the cervical spine are provided. COMPARISON: 07/28/2010 FINDINGS: Alignment is normal. The odontoid is intact. No fracture is identified. The vertebral body heights are maintained. There is mild loss of intervertebral disc space height at C5-6 and C6-7. Smal l degenerative osteophytes project from the anterior endplates of multiple vertebral bodies. Preverte bral soft tissues are normal. IMPRESSION: 1. Mild cervical spondylosis without acute findings. Reviewed, dictated and finalized at location B.
== END 2021-12-12 08:53 | disposition home or self-care (01) ==
LOC: ANHIMG 08:53
PROVIDERS: PCP Family Medicine; Visit Provider Internal Medicine
DX: M47.812 Spondylosis without myelopathy or radiculopathy, cervical region (principal); G44.52 New daily persistent headache (NDPH); R20.0 Anesthesia of skin; R41.3 Other amnesia; R32 Unspecified urinary incontinence; I73.00 Raynaud's syndrome without gangrene
CPT/HCPCS: 72050

== ENCOUNTER 2021-12-26 06:48 | Outpatient (CLI) | payer OTHER, SELFPAY ==
--- NOTE | ~2021-12-26 | MR_ITS ---
EXAMINATION: MR brain/brain stem wo/w con DATE: 12/26/2021 08:25 INDICATION: Left-sided numbness and weakness. Headache. TECHNIQUE: Magnetic resonance imaging (MRI) of the brain and brainstem was performed without and with 17 mL MultiHance intravenous contrast. COMPARISON: Brain MRI 10/03/2021 FINDINGS: There is no intracranial hemorrhage, acute infarction, or abnormal intracranial mass lesion . The ventricles are normal in size. There is mild mucosal thickening in the paranasal sinuses. The o rbits are normal. The mastoid air cells are normal. IMPRESSION: 1. Normal brain. Reviewed, dictated and finalized at location A. IMPRESSION: 1. Normal brain.
--- NOTE | ~2021-12-26 | MR_ITS ---
EXAMINATION: MR cervical spine wo/w con DATE: 12/26/2021 08:26 INDICATION: Numbness. Incontinence. TECHNIQUE: Magnetic resonance imaging (MRI) of the cervical spine was performed without and with 17 m L MultiHance intravenous contrast. COMPARISON: Cervical spine radiographs 12/12/2021 FINDINGS: Bone alignment is normal. Vertebral body heights are normal. There is mildly decreased disc height at C5-C6 and C6-C7. There is a hemangioma in T6 vertebral body. The spinal cord signal intens ity is normal. The following disc levels are specifically discussed: C2-C3: The disc does not extend beyond the endplate margin. There is no uncovertebral joint osteoarth ritis. There is mild bilateral facet joint osteoarthritis. There is no neural foraminal stenosis. The re is no central canal stenosis. C3-C4: The disc does not extend beyond the endplate margin. There is no uncovertebral joint osteoarth ritis. There is no facet joint osteoarthritis. There is no neural foraminal stenosis. There is no es tral canal stenosis. C4-C5: There is a right central extrusion. There is no uncovertebral joint osteoarthritis. There is n o facet joint osteoarthritis. There is no neural foraminal stenosis. There is mild central canal sten osis. C5-C6: There is a central extrusion. There is no uncovertebral joint osteoarthritis. There is mild bi lateral facet joint osteoarthritis. There is no neural foraminal stenosis. There is mild central ino l stenosis with ventral indentation of the spinal cord. C6-C7: There is a central extrusion. There is no uncovertebral joint osteoarthritis. There is no face t joint osteoarthritis. There is no neural foraminal stenosis. There is mild central canal stenosis. C7-T1: The disc does not extend beyond the endplate margin. There is no uncovertebral joint osteoarth ritis. There is mild bilateral facet joint osteoarthritis. There is no neural foraminal stenosis. The re is no central canal stenosis. IMPRESSION: 1. Mild cervical spondylosis. Reviewed, dictated and finalized at location A.
== END 2021-12-26 06:49 | disposition home or self-care (01) ==
PROVIDERS: PCP Family Medicine; Visit Provider Student in an Organized Health Care Education/Training Program
DX: R20.0 Anesthesia of skin (principal); M47.892 Other spondylosis, cervical region
CPT/HCPCS: 70553; 72156; A9577

== ENCOUNTER 2021-12-27 07:29 | Outpatient (CLI) | payer OTHER, SELFPAY ==
--- NOTE | ~2021-12-27 | MR_ITS ---
EXAMINATION: MR lumbar spine wo/w con DATE: 12/27/2021 08:51 INDICATION: numbness/incontinence . Headaches, fatigue, left-sided numbness and weakness. 2 falls sin august. TECHNIQUE: Magnetic resonance imaging (MRI) of the lumbar spine was performed without and with 14 mL MultiHance intravenous contrast. Sequences included sagittal T2-weighted FSE, sagittal T2-weighted FS FSE, sagittal T1-weighted FSE, and axial T2-weighted FSE. COMPARISON: None FINDINGS: The last fully formed and hydrated disc is designated L5-S1. The marrow signal is benign an d homogenous. Conus terminates at L1. Loss of disc height and hydration at L4-5. No abnormal enhancem ent. The following disc levels are specifically discussed: T11-T12: The disc does not extend beyond the endplate margin. There is no facet joint osteoarthritis. There is no neural foraminal stenosis. There is no central canal stenosis. T12-L1: The disc does not extend beyond the endplate margin. There is no facet joint osteoarthritis. There is no neural foraminal stenosis. There is no central canal stenosis. L1-L2: The disc does not extend beyond the endplate margin. There is no facet joint osteoarthritis. T here is no neural foraminal stenosis. There is no central canal stenosis. L2-L3: The disc does not extend beyond the endplate margin. There is no facet joint osteoarthritis. T here is no neural foraminal stenosis. There is no central canal stenosis. L3-L4: The disc does not extend beyond the endplate margin. There is no facet joint osteoarthritis. T here is no neural foraminal stenosis. There is no central canal stenosis. L4-L5: 4 mm central extrusion extending at 6 mm inferiorly along the posterior aspect of L5, superimp osed on a mild diffuse disc bulge. There is mild bilateral facet joint osteoarthritis. There is no ne ural foraminal stenosis. There is mild central canal stenosis. L5-S1: The disc does not extend beyond the endplate margin. There is mild bilateral facet joint osteo arthritis. There is no neural foraminal stenosis. There is no central canal stenosis. IMPRESSION: 1. 6 mm central extrusion extending off the L4-5 disc. 2. Moderate degenerative disc disease at L4-5. 3. Mild lower lumbar facet arthropathy. Reviewed, dictated and finalized at location K.
--- NOTE | ~2021-12-27 | MR_ITS ---
EXAMINATION: MR thoracic spine wo/w con DATE: 12/27/2021 08:51 INDICATION: Numbness. Incontinence. TECHNIQUE: Magnetic resonance imaging (MRI) of the thoracic spine was performed without and with 17 m L MultiHance intravenous contrast. COMPARISON: None FINDINGS: There is 6 degrees levocurvature of upper thoracic spine. Vertebral body heights are normal . There are hemangiomas in T5 and T6 vertebral bodies. There is mildly decreased disc height at T5-T6 . The discs do not extend beyond the endplate margins. There is multilevel mild facet joint osteoarth ritis. No neural foraminal stenosis or central canal stenosis. The spinal cord signal intensity is no rmal. IMPRESSION: 1. Mild thoracic spondylosis. Reviewed, dictated and finalized at location A. 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
== END 2021-12-27 07:30 | disposition home or self-care (01) ==
PROVIDERS: PCP Family Medicine; Visit Provider Student in an Organized Health Care Education/Training Program
DX: R20.0 Anesthesia of skin (principal); M47.894 Other spondylosis, thoracic region; M51.36 Other intervertebral disc degeneration, lumbar region; M51.26 Other intervertebral disc displacement, lumbar region
CPT/HCPCS: 72157; 72158; A9577

== ENCOUNTER 2022-01-16 08:40 | Outpatient (CLI) | payer OTHER, SELFPAY ==
--- NOTE | 2022-01-16 11:00 | NEURO_ITS ---
Impression: # Complains of numbness in all extremities. # Normal nerve conduction study of all four extremities # Normal needle/EMG exam. # Clinical correlation recommended. Motor Nerve Conduction Upper Extremities Median Nerve Conduction Velocity (m/sec) Terminal Latency (msec) Response Voltage(mV) Elbow-Wrist Wrist Elbow Wrist Right 55 2.7 7 9 Left 53 2.7 4 5 Ulnar Nerve Conduction Velocity (m/sec) Terminal Latency (msec) Response Voltage(mV) Above Elbow Below Elbow Wrist Above Elbow Below Elbow Wrist Right 58 59 2.2 6 6 7 Left 57 58 2.4 5 4 5 F-Wave Latency Median (ms) Ulnar (ms) Right 27.7 26.8 Left 27.1 27.2 Sensory Nerve Conduction Upper Extremities Median Nerve Stimulation Terminal Latency (msec) Wrist/Digit Response Voltage (uV) Wrist Right 2.8/2.8 75/73 Left 2.8/2.9 56/76 Ulnar Nerve Stimulation Terminal Latency (msec) Wrist/Digit Response Voltage (uV) Wrist Right 2.5 45 Left 2.6 65 Radial Nerve Terminal Latency (msec) Response Voltage(mV) Right 1.8 55 Left 2.1 31 Left Right Muscles Examined Fibrillation Fasciculation Scarcity Voltage Duration Left Right Left Right Left Right Left Right Left Right Deltoid Biceps X X Brachioradialis Triceps X X Pronator Teres X X Ext Indicis X X Ext Digitorum X X Abd Poll Brev X X 1st Dorsal Interosseus Paraspinals Motor Nerve Conduction Lower Extremities Peroneal Nerve Conduction Velocity (m/sec) Terminal Latency (msec) Response Voltage(mV) Popliteal space-Ankle Ankle Extensor Dig Brevis Popliteal space Ankle Right 46-46 3.5 4-3 4 Left 47-46 3.5 4-3 4 Tibial Nerve Conduction Velocity (m/sec) Terminal Latency (msec) Response Voltage(mV) Popliteal space-Ankle Ankle-Extensor Dig Brevis Popliteal space Ankle Right 51 3.8 4 6 Left 48 3.6 6 8 F-waves Peroneal Nerve (ms) Tibial Nerve (ms) Right 47.4 48.4 Left 47.4 47.7 Sensory Nerve Conduction Lower Extremities Sural Nerve Stimulation Terminal Latency (msec) Ankle Response Voltage (uV) Ankle Response Velocity (m/sec) Right 3.5 28 44 Left 3.8 12 42 Superficial Peroneal Nerve Stimulation Terminal Latency (msec) Ankle Response Voltage (uV) Ankle Response Velocity (m/sec) Right 2.8 12 57 Left 3.3 9 48 Left Right Muscles Examined Fibrillation Fasciculation Scarcity Voltage Duration Left Right Left Right Left Right Left Right Left Right X X Ant Tibialis X X Gastroc X X Fibularis Long X X Flex Dig Long X X Ext Dig Brev Abd Hallucis Quadriceps Paraspinals MTDD
== END 2022-01-16 08:41 | disposition home or self-care (01) ==
LOC: ANHNEURO 08:42
PROVIDERS: PCP Family Medicine; Visit Provider Student in an Organized Health Care Education/Training Program
DX: R20.0 Anesthesia of skin (principal)
CPT/HCPCS: 95886; 95913

== ENCOUNTER 2022-02-10 10:01 | Outpatient (CLI) | payer OTHER, SELFPAY ==
[2022-02-10 11:21] LABS: Immunoglobulin G 1224 mg/dL (700-1600)
[2022-02-10 13:02] LABS: Hemoglobin A1C 5.6 % (<5.7)
[2022-02-10 13:06] LABS: Hepatitis B Surface Antigen Negative (Negative)
[2022-02-10 13:12] LABS: Hepatitis B Core IgM Result Negative (Negative)
[2022-02-10 13:24] LABS: Hepatitis B Surface Antibody > 1000.00 s/c; Hepatitis C Virus Antibody Negative (Negative)
[2022-02-10 21:02] LABS: Hepatitis B Surface Anti Res Positive
[2022-02-12 18:50] LABS: Factor VIII Activity 165 % normal (50-180)
[2022-02-13 03:24] LABS: Thyroid Peroxidase Antibodies 6 IU/mL (<9)
[2022-02-13 07:01] LABS: SM Antibody <1.0; SM/RNP Antibody <1.0
[2022-02-13 09:26] LABS: Zinc 68 mcg/dL (60-130)
[2022-02-13 12:06] LABS: Protein C Antigen 110 % normal (70-140)
[2022-02-13 12:34] LABS: Protein S Antigen, Free 143 % normal (50-147); Protein S Antigen, Total 114 % normal (70-140)
[2022-02-14 06:11] LABS: Anti Cardiolipin Antibody IgA <2.0 APL-U/mL (<20.0); Anti Cardiolipin Antibody IgG <2.0 GPL-U/mL (<20.0)
[2022-02-16 06:43] LABS: Creatinine, Random Urine 190 mg/dL (20-275); Total Protein/Creatinine Ratio 100 mg/g creat (24-184)
[2022-02-16 09:45] LABS: Cryoglobulin, QL Negative (Negative)
[2022-02-16 18:17] LABS: Factor V (Leiden) Mutation NEGATIVE
[2022-02-19 11:04] LABS: Mercury None Detected
== END 2022-02-10 10:02 | disposition home or self-care (01) ==
LOC: ANHLAB 10:04
PROVIDERS: PCP Family Medicine; Visit Provider Internal Medicine
DX: G44.52 New daily persistent headache (NDPH) (principal); I73.00 Raynaud's syndrome without gangrene; M19.90 Unspecified osteoarthritis, unspecified site; R20.0 Anesthesia of skin; R32 Unspecified urinary incontinence; R41.3 Other amnesia
CPT/HCPCS: 36415; 81241; 82570; 82595; 82784; 83036; 83825; 84156; 84166; 84443; 84630; 85240; 85302; 85303; 85305; 85306; 86038; 86146; 86147; 86235; 86376; 86705; 86706; 86803; 87340

== ENCOUNTER 2022-04-23 13:42 | Outpatient (CLI) | payer OTHER, SELFPAY ==
--- NOTE | ~2022-04-23 | XR_ITS ---
AP view of the pelvis and AP and lateral views of the bilateral hips Clinical history: Pain Findings: No acute fracture or dislocation is seen. Osseous alignment is anatomic. Bilateral hip and SI joint spaces are preserved. Soft tissues are unremarkable. Impression: No significant abnormality is seen. Reviewed, dictated and finalized at [facility]. OGRAPHY TECHNOLOGIST Impression: No significant abnormality is seen.
[2022-04-23 14:34] LABS: Basophils Absolute Auto 0.1 K/mm3 (0.0-0.1); Basophils Percent Auto 0.5 % (0.2-1.2); Eosinophils Absolute Auto 0.1 K/mm3 (0-0.3); Eosinophils Percent Auto 1.2 % (0-4.4); Hematocrit 41.1 % (37.0-47.0); Immature Granulocyte Absolute 0.04 K/mm3 (0.00-0.031); Immature Granulocyte Percent A 0.4 % (0-0.5); Lymphocytes Absolute Auto 2.85 K/mm3 (0.9-3.2); Mean Corpuscular HGB Conc 31.6 g/dl (32-36); Mean Corpuscular Hemoglobin 28.7 pg (26-34); Mean Corpuscular Volume 90.7 fl (80-100); Mean Platelet Volume 9.5 fl (7.4-10.4); Monocytes Absolute Auto 0.6 K/mm3 (0.1-0.6); Neutrophils Absolute Auto 7.4 K/mm3 (1.3-6.7); Neutrophils Percent Auto 66.9 % (45.5-73.1); Platelet Count Result 417 k/mm3 (150-375); Red Blood Count 4.53 M/mm3 (4.2-5.4); Red Cell Distribution Width 13.7 % (11.5-14.5)
[2022-04-23 14:48] LABS: Alanine Aminotransferase 23 U/L (6-35); Albumin Level 4.8 g/dL (3.5-5.1); Alkaline Phosphatase 98 U/L (38-126); Anion Gap 10 mmol/L (8-16); Aspartate Amino Transferase 23 U/L (14-36); Bilirubin,Total 0.5 mg/dL (0.2-1.3); Blood Urea Nitrogen 15 mg/dL (7-17); CRP < 0.5 mg/dL (<1.0); Calcium 9.2 mg/dL (8.4-10.2); Carbon Dioxide 19 mmol/L (22-30); Chloride 112 mmol/L (98-107); Estimated Glomerular Filt Rate > 60; Glucose 85 mg/dL (65-110); Potassium 3.8 mmol/L (3.4-5.0); Sodium 141 mmol/L (137-145)
[2022-04-23 14:54] LABS: Complement C3 131 mg/dL (88-165)
[2022-04-23 15:10] LABS: Erythrocyte Sedimentation Rate 14 mm/hr (0-20)
[2022-04-23 17:33] LABS: Creatinine Urine 191.4 mg/dL; Total Protein Urine Random 10 mg/dL; Ur Ttl Prot Creatinine Ratio 0.05 mg/mg (0-0.20)
== END 2022-04-23 13:43 | disposition home or self-care (01) ==
PROVIDERS: PCP Family Medicine; Visit Provider Internal Medicine
DX: I73.00 Raynaud's syndrome without gangrene (principal); R76.8 Other specified abnormal immunological findings in serum; M19.90 Unspecified osteoarthritis, unspecified site
CPT/HCPCS: 36415; 73521; 80053; 82570; 84156; 85025; 85652; 86140; 86160; 86225

== ENCOUNTER 2022-06-25 01:59 | Outpatient (CLI) | payer OTHER, SELFPAY ==
[2022-06-17 14:16] VITALS: BMI 31.4
--- NOTE | 2022-06-17 14:21 | PC.NURSE ---
Pre Radiology instructions Report [facility] on date 06/25/22 at time 0830 for procedure Time: 1030. YOU MAY BE MONITORED AT HOSPITAL FOR UP TO 4 HOURS AFTER YOUR PROCEDURE. A visitor will be allowed to accompany the patient into the hospital. You and your visitor will be asked to self-screen and do not enter if you have any COVID symptoms. A mask is OPTIONAL within the hospital. Patients are to have no food or drink 6 hours prior to procedure time Driving will be restricted after the procedure, you must have a person to drive you home. Labs will be drawn in preop area and once reviewed, you will be taken to radiology area for procedure. When the procedure is completed, you will be taken to outpatient where you will be monitored for several hours. You may have one visitor in this area. Other than holding anti-coagulants, patient may take other medication(s) as scheduled. Prior to your appointment date patients are instructed to hold anti-coagulants after discussing with ordering provider to stop. If unable to discontinue anti-coagulants please notify radiologist. ? No aspirin or warfarin (Coumadin) for 7 days prior to the procedure. ? No clopidogrel (Plavix), ticagrelor (Brilinta), prasugrel (Effient) or dabigatran (Pradaxa) for 5 days prior to the procedure. ? No rivaroxaban (Xarelto), apixaban (Eliquis), dipyridamole (Aggrenox or Persantine) or cilostazol (Pletal) for 2 days prior to the procedure. Medications to discontinue per physician: N/A Date to take last dose: N/A Please leave all valuables, including medications, at home the day of procedure. The hospital will not accept responsibility for valuables. Wear comfortable, loose fitting clothing.? Follow any additional instructions given to you from ordering provider. Telephone instructions given to IBRAHIMA RAMSEY and asked if any additional questions and then verbalized understanding. Patient advised to call scheduling provider office or registration scheduling [phone] if any additional questions.
[2022-06-25] VITALS (9 sets, daily range): BP systolic 103–129; BP diastolic 63–86; PULSE 57–83; RESP 16–20; TEMP 36.5; O2SAT 100
--- NOTE | ~2022-06-25 | XR_ITS ---
EXAMINATION: XR lumbar puncture diagnostic DATE: 06/25/2022 13:31 INDICATION: Lumbar puncture. TECHNIQUE: The procedure including the risks, benefits, and alternatives was discussed with the patie nt. Risks discussed included spinal headache, bleeding, and infection. The patient understood the ris ks and agreed to proceed. A timeout was performed to verify the patient's name, date of , and procedure to be performed. The skin overlying the L2-L3 level was prepped and draped in usual steri le fashion. Subcutaneous 1% lidocaine was used for local anesthesia. A 20 gauge spinal needle was a dvanced under fluoroscopic guidance. The needle was removed and the entry site was cleaned and dresse d. There were no immediate complications. Fluoroscopy exposure time was 0.1 minutes. The total numbe r of images was 1. FINDINGS: Real-time fluoroscopy demonstrates the needle at the L2-L3 level. The opening pressure was 6 cm water (Normal range is variably defined as 6-20 cm water and up to 25 cm water in obese patients . Pressure >25 cm water is one of the modified Dandy criteria for idiopathic intracranial hypertensio n). 14 mL of clear, colorless fluid was collected in 4 tubes. IMPRESSION: 1. Successful fluoro-guided lumbar puncture. Reviewed, dictated and finalized at location [facility].
[2022-06-25 11:59] LABS: Mean Platelet Volume 8.8 fl (7.4-10.4); Platelet Count Result 397 k/mm3 (150-375)
[2022-06-25 14:16] LABS: Glucose CSF 56 mg/dL (40-70); Total Protein CSF 60 mg/dL (12-60)
[2022-06-25 14:28] LABS: Appearance CSF Clear (Clear); CSF source CSF; Color CSF Colorless (Colorless); Nucleated Cell CSF 0 /uL (0-5); Red Blood Cell CSF < 2000 (0-2)
[2022-06-25 14:29] LABS: Lymphocytes CSF 92 % (40-80); Monocytes CSF 4 % (15-45); Other Cells CSF 4 %
--- NOTE | 2022-06-25 14:30 | SUR.PHASEII ---
1430 - dr. calderón called and aware of pt's gram stain results
[2022-06-25] MEDS: IBUPROFEN 400 MG TABLET 800 MG PO (15:25)
== END 2022-06-25 16:23 | disposition home or self-care (01) ==
PROVIDERS: PCP Family Medicine; Referring Provider Student in an Organized Health Care Education/Training Program; Visit Provider Radiology Diagnostic Radiology
DX: R53.1 Weakness (principal)
CPT/HCPCS: 36415; 62328; 82945; 84157; 85049; 85610; 87070; 89051; A9270

== ENCOUNTER 2022-06-25 13:30 | Outpatient (CLI) | payer OTHER, SELFPAY ==
[2022-07-05 05:20] LABS: Myelin Basic Protein, CSF <2.0 mcg/L (<=4.0); Oligoclonal Bands (IgG), CSF Absent (Absent)
== END 2022-06-25 13:31 | disposition home or self-care (01) ==
PROVIDERS: PCP Family Medicine; Visit Provider Student in an Organized Health Care Education/Training Program
DX: R53.1 Weakness (principal)
CPT/HCPCS: 36415; 82040; 82042; 82784; 83873; 83916

== ENCOUNTER 2023-02-08 14:19 | Outpatient (CLI) | payer OTHER, SELFPAY ==
[2023-02-08 15:17] LABS: Anion Gap 11 mmol/L (8-16); Blood Urea Nitrogen 13 mg/dL (7-17); Calcium 10.1 mg/dL (8.4-10.2); Carbon Dioxide 20 mmol/L (22-30); Chloride 109 mmol/L (98-107); Estimated Glomerular Filt Rate > 60; Glucose 107 mg/dL (65-110); Potassium 3.7 mmol/L (3.4-5.0); Sodium 140 mmol/L (137-145)
== END 2023-02-08 14:20 | disposition home or self-care (01) ==
LOC: ANHLAB 14:22
PROVIDERS: PCP Family Medicine; Visit Provider Physician Assistant
DX: K21.9 Gastro-esophageal reflux disease without esophagitis (principal)
CPT/HCPCS: 36415; 80048

== ENCOUNTER 2023-02-10 06:35 | Outpatient (CLI) | payer OTHER, SELFPAY ==
--- NOTE | ~2023-02-10 | CT_ITS ---
CT of the Abdomen and Pelvis: Indication: GERD Technique: 2.5 mm axial scans were obtained through the abdomen and pelvis following intravenous adm inistration of 100 cc of Omnipaque 350. Dose reduction technique was used on this scan by utilizing a utomated exposure control and iterative reconstruction technique. The dose-length product (DLP) was 3 96.91 mGy-cm. Findings: Scans through the lung bases are unremarkable. The liver, spleen, pancreas, gallbladder, adrenals and kidneys are within normal limits. No evidence of aortic aneurysm. No lymphadenopathy. No bowel obstruction or bowel wall thickening. There is no evidence to suggest acute appendicitis. Images through the pelvis were performed. Urinary bladder unremarkable. No adnexal mass seen. No asci david. IUD in place, with one limb appearing to extend into the myometrium. Impression: No acute abnormality seen. IUD present, with one limb appearing to extend into the myometrium. Reviewed, dictated and finalized at [facility]. ICAL LABORATORY SCIENTIST Impression: No acute abnormality seen. IUD present, with one limb appearing to extend into the myometrium.
== END 2023-02-10 06:36 | disposition home or self-care (01) ==
PROVIDERS: PCP Family Medicine; Visit Provider Physician Assistant
DX: K21.9 Gastro-esophageal reflux disease without esophagitis (principal); Z97.5 Presence of (intrauterine) contraceptive device
CPT/HCPCS: 74177; Q9967

== ENCOUNTER 2023-02-16 17:02 | Outpatient (CLI) | payer OTHER, SELFPAY ==
[2023-02-16 17:29] LABS: Hematocrit 42.5 % (37.0-47.0); Hemoglobin 13.5 g/dL (12.0-15.0); Mean Corpuscular HGB Conc 31.8 g/dl (32-36); Mean Corpuscular Hemoglobin 29.5 pg (26-34); Mean Platelet Volume 9.3 fl (7.4-10.4); Platelet Count Result 422 k/mm3 (150-375); Red Blood Count 4.57 M/mm3 (4.2-5.4); Red Cell Distribution Width 13.4 % (11.5-14.5)
[2023-02-16 17:43] LABS: Alanine Aminotransferase 38 U/L (6-35); Albumin Level 4.7 g/dL (3.5-5.1); Alkaline Phosphatase 97 U/L (38-126); Anion Gap 12 mmol/L (8-16); Aspartate Amino Transferase 45 U/L (14-36); Bilirubin,Total 0.8 mg/dL (0.2-1.3); Blood Urea Nitrogen 16 mg/dL (7-17); CRP < 0.5 mg/dL (<1.0); Carbon Dioxide 22 mmol/L (22-30); Chloride 105 mmol/L (98-107); Estimated Glomerular Filt Rate > 60; Glucose 84 mg/dL (65-110); Potassium 3.8 mmol/L (3.4-5.0); Sodium 139 mmol/L (137-145)
[2023-02-16 17:56] LABS: Erythrocyte Sedimentation Rate 15 mm/hr (0-20)
[2023-02-22 06:41] LABS: Immunoglobulin A 258 mg/dL (47-310); TTG IGA AB <1.0 U/mL (<15.0)
== END 2023-02-16 17:03 | disposition home or self-care (01) ==
LOC: ANHLAB 17:03
PROVIDERS: PCP Family Medicine; Visit Provider Nurse Practitioner Family
DX: R10.9 Unspecified abdominal pain (principal); R19.4 Change in bowel habit; R63.4 Abnormal weight loss; I73.00 Raynaud's syndrome without gangrene; M32.9 Systemic lupus erythematosus, unspecified; R76.8 Other specified abnormal immunological findings in serum; M19.90 Unspecified osteoarthritis, unspecified site
CPT/HCPCS: 36415; 80053; 82784; 85027; 85652; 86140; 86364

== ENCOUNTER 2023-02-23 00:55 | Day surgery (SDC) | payer OTHER, SELFPAY ==
--- NOTE | 2023-02-19 10:10 | SUR.PREOP ---
Patient called regarding upcoming procedure. Reviewed what medications to take or not take and answered further questions. Reviewed preop instructions, appointment times, and procedure prep.
[2023-02-19 10:17] VITALS: BMI 27.3
--- NOTE | 2023-02-19 14:11 | PM.HPGS ---
History of Present Illness History of Present Illness Consent: Risks, benefits, and alternatives have been discussed and questions answered. Patient agrees to proceed with procedure. Chief complaint: abnor.weightloss,change in bowel habits,abdom.pain Narrative: Jazmine Antoine is a 37 year old female with weight loss, epigastric pain and nausea as well as a change in bowel movements. In the last 2 months she has lost about 25 lb. She has pain that begins in the epigastric area and radiates down towards the midline. She has been very constipated lately having a bowel movement sometimes only every 10 days. Review of Systems Review of Systems: All systems reviewed & are unremarkable except as noted in HPI and below PMFSH Past Medical History Medical History Abdominal pain Anxiety Change in bowel habits Change of skin color Complaint of paresthesia Depression Ds DNA antibody positive Raynaud's phenomenon (by history or observed) Weight loss Surgical History Surgical History Hx of appendectomy Family History Family History Mother Congestive heart failure Rheumatoid arthritis Epilepsy Father Congestive heart failure Social History Social History Smoking status: Never smoker Alcohol intake: current Alcohol use details: 1 glass of wine occasionaly Substance use: never Substance use type: does not use Last use: Drinks alcohol socially, but very rare. Lack of Transportation: No Lack of Food: Never True Current Housing: I Have Housing Concerned About Future Housing: No Difficulty Paying Gas/Electric Bills: No Difficulty Paying for Meds: No Currently Unemployed: No Education: Master's Degree or Higher Difficulty w/ Childcare or Family Care: No Living arrangements: with family Occupation/Education: occupation Gender identity (if verbalized by the patient): Female Spiritual care concerns: No Meds Home Medications and Allergies Home Medications Medication Instructions Recorded Confirmed Type verapamil 120 mg 24 hr 120 mg PO HS 30 days #30 caps 10/09/21 02/23/23 Rx capsule,extended release riboflavin (vitamin B2) 400 mg 400 mg PO DAILY #60 tabs 11/19/21 02/23/23 Rx tablet melatonin 0.5 mg-theanin 25 1 tablet PO HS PRN Insomnia 06/17/22 02/23/23 History mg-lemon,chamom,lavend 12.5 mg chew tablet (Kids Sleep Calm) valacyclovir 500 mg tablet 500 mg PO BID 06/17/22 02/23/23 History atogepant 60 mg tablet (Qulipta) 60 mg PO DAILY #30 tabs 10/08/22 02/23/23 Rx alprazolam 0.25 mg tablet (Xanax) 0.25 mg PO TID PRN Anxiety 02/16/23 02/23/23 History Culturelle Probiotic-Prebiotic 1 cap PO DAILY 02/19/23 02/23/23 History acetaminophen 500 mg tablet 1,000 mg PO Q6H PRN Pain 02/19/23 02/23/23 History acetazolamide 250 mg tablet 250 mg PO TID 02/19/23 02/23/23 History cholecalciferol (vitamin D3) 25 25 mcg PO DAILY 02/19/23 02/23/23 History mcg (1,000 unit) capsule (Vitamin D3) doxylamine succinate 25 mg tablet 25 - 50 mg PO HS PRN Insomnia 02/19/23 02/23/23 History duloxetine 30 mg capsule,delayed 30 mg PO DAILY 02/19/23 02/23/23 History release duloxetine 60 mg capsule,delayed 60 mg PO DAILY 02/19/23 02/23/23 History release gabapentin 300 mg capsule 300 mg PO TID 02/19/23 02/23/23 History magnesium oxide 400 mg (241.3 mg 200 mg PO DAILY 02/19/23 02/23/23 History magnesium) tablet mecobalamin (vitamin B12) 5,000 5,000 mcg PO DAILY 02/19/23 02/23/23 History mcg chewable tablet omeprazole magnesium 20 mg 20 mg PO DAILY 02/19/23 02/23/23 History tablet,delayed release (Prilosec OTC) polyethylene glycol 3350 17 17 g PO DAILY 02/19/23 02/23/23 History gram/dose oral powder (Miralax) psyllium husk 0.4 gram capsule 0.4 g PO DAILY 12
[2023-02-23 07:23] VITALS: BP 130/86; PULSE 113; RESP 16; TEMP 36.2; O2SAT 96; BMI 26.0
[2023-02-23] MEDS: LACTATED RINGERS 1,000 ML 150 ML IV CONT (07:37)
--- NOTE | 2023-02-23 07:58 | WPDANESEPPF ---
Anes - Initial Pre Proc Eval Procedure: Operation Date: 02/23/23 08:30 Proposed Procedures p Esophagogastroduodenoscopy & Colonoscopy - Venu Botello MD Date/Time: 02/23/23 07:58 Surgeon: Venu Botello MD Pre Op Diagnosis: abnor.weightloss,change in bowel habits,abdom.pain Patient Data Age: 38 Gender: F Height: 1.63 m Weight: 68.8 kg Last Vital Signs Temp 97.2 F L 02/23/23 07:23 Pulse 113 H 02/23/23 07:23 Resp 16 02/23/23 07:23 BP 130/86 02/23/23 07:23 Pulse Ox 96 02/23/23 07:23 O2 Del Method Room Air 02/23/23 07:23 Allergies Allergy/AdvReac Type Severity Reaction Status Date / Time hydroxychloroquine Allergy Intermediate Hives Verified 02/23/23 07:19 [From Plaquenil] Home Medications Medication Instructions Recorded Confirmed Type verapamil 120 mg 24 hr 120 mg PO HS 30 days #30 caps 10/09/21 02/23/23 Rx capsule,extended release riboflavin (vitamin B2) 400 mg 400 mg PO DAILY #60 tabs 11/19/21 02/23/23 Rx tablet melatonin 0.5 mg-theanin 25 1 tablet PO HS PRN Insomnia 06/17/22 02/23/23 History mg-lemon,chamom,lavend 12.5 mg chew tablet (Kids Sleep Calm) valacyclovir 500 mg tablet 500 mg PO BID 06/17/22 02/23/23 History atogepant 60 mg tablet (Qulipta) 60 mg PO DAILY #30 tabs 10/08/22 02/23/23 Rx alprazolam 0.25 mg tablet (Xanax) 0.25 mg PO TID PRN Anxiety 02/16/23 02/23/23 History Culturelle Probiotic-Prebiotic 1 cap PO DAILY 02/19/23 02/23/23 History acetaminophen 500 mg tablet 1,000 mg PO Q6H PRN Pain 02/19/23 02/23/23 History acetazolamide 250 mg tablet 250 mg PO TID 02/19/23 02/23/23 History cholecalciferol (vitamin D3) 25 25 mcg PO DAILY 02/19/23 02/23/23 History mcg (1,000 unit) capsule (Vitamin D3) doxylamine succinate 25 mg tablet 25 - 50 mg PO HS PRN Insomnia 02/19/23 02/23/23 History duloxetine 30 mg capsule,delayed 30 mg PO DAILY 02/19/23 02/23/23 History release duloxetine 60 mg capsule,delayed 60 mg PO DAILY 02/19/23 02/23/23 History release gabapentin 300 mg capsule 300 mg PO TID 02/19/23 02/23/23 History magnesium oxide 400 mg (241.3 mg 200 mg PO DAILY 02/19/23 02/23/23 History magnesium) tablet mecobalamin (vitamin B12) 5,000 5,000 mcg PO DAILY 02/19/23 02/23/23 History mcg chewable tablet omeprazole magnesium 20 mg 20 mg PO DAILY 02/19/23 02/23/23 History tablet,delayed release (Prilosec OTC) polyethylene glycol 3350 17 17 g PO DAILY 02/19/23 02/23/23 History gram/dose oral powder (Miralax) psyllium husk 0.4 gram capsule 0.4 g PO DAILY 02/19/23 02/23/23 History (Daily Fiber) Patient hx anesthesia problems: none Family hx anesthesia problems: none Results Review: All pre-operative results and documents have been reviewed as part of the pre-operative evaluation. [facility] Past Medical History Medical History Abdominal pain Anxiety Change in bowel habits Change of skin color Complaint of paresthesia Depression Ds DNA antibody positive Raynaud's phenomenon (by history or observed) Weight loss Surgical History Surgical History Hx of appendectomy Family History Family History Mother Congestive heart failure Rheumatoid arthritis Epilepsy Father Congestive heart failure Social History Social History Smoking status: Never smoker Alcohol intake: current Alcohol use details: 1 glass of wine occasionaly Substance use: never Substance use type: does not use Last use: Drinks alcohol socially, but very rare. Lack of Transportation: No Lack of Food: Never True Current Housing: I Have Housing Concerned About Future Housing: No Difficulty Paying Gas/Electric Bills: No Difficulty Paying for Meds: No Currently Unemployed: No Education: Master's Degree or Higher
[2023-02-23] MEDS: BENZOCAINE (*SP) 60 ML SPRAY CAN (HURRICAINE) 1 SPRAY MUCOUS MEM (08:22)
--- NOTE | 2023-02-23 08:43 | SUR.OPER ---
EGD START 824, END 828 COLONOSCOPY START 834, 842
[2023-02-23 08:45] VITALS: BP 98/70; PULSE 88; RESP 20; O2SAT 98
[2023-02-23 08:55] VITALS: BP 101/67; PULSE 85; RESP 16; O2SAT 100
[2023-02-23 09:05] VITALS: BP 114/78; PULSE 79; RESP 17; O2SAT 99
[2023-02-23 09:15] VITALS: BP 109/80; PULSE 76; RESP 18; O2SAT 100
[2023-02-23] MEDS: PROPARACAINE HCL 0.5% 15 ML OPHTH SOLN 1 DROP EACH EYE (09:45)
[2023-02-23] MEDS: DICLOFENAC SODIUM 0.1% OPHTH SOLN 2.5 ML BOTTLE 1 DROP EACH EYE (09:46)
--- NOTE | 2023-02-23 10:15 | SUR.PHASEII ---
PT complaining of rt eye burning Dr. Olea notified corneal abrasion protocol, eye drops instilled rt eye
== END 2023-02-23 09:52 | disposition home or self-care (01) ==
PROVIDERS: PCP Family Medicine; Visit Provider Internal Medicine Gastroenterology
PROC: 0DJ08ZZ Inspection of Upper Intestinal Tract, Via Natural or Artificial Opening Endoscopic (ICD-10-PCS; CPT 43235; principal; 2023-02-23 08:30)
DX: K59.00 Constipation, unspecified (principal); K21.9 Gastro-esophageal reflux disease without esophagitis; K29.70 Gastritis, unspecified, without bleeding; F41.9 Anxiety disorder, unspecified; F32.A Depression, unspecified
CPT/HCPCS: 45378; 43239; 87081; 88305; A9270; J2704; J7120

== ENCOUNTER 2023-02-23 06:44 | Outpatient (CLI) | payer OTHER, SELFPAY ==
[2023-02-27 20:51] LABS: Calprotectin, Stool 72 mcg/g
== END 2023-02-23 06:45 | disposition home or self-care (01) ==
PROVIDERS: PCP Family Medicine; Visit Provider Nurse Practitioner Family
DX: R10.9 Unspecified abdominal pain (principal); R19.4 Change in bowel habit; R63.4 Abnormal weight loss
CPT/HCPCS: 83993

== ENCOUNTER 2023-04-02 15:04 | Outpatient (CLI) | payer OTHER, SELFPAY ==
[2023-04-02 15:34] LABS: Alanine Aminotransferase 16 U/L (6-35); Albumin Level 4.3 g/dL (3.5-5.1); Alkaline Phosphatase 82 U/L (38-126); Aspartate Amino Transferase 27 U/L (14-36); Bilirubin,Total 0.7 mg/dL (0.2-1.3)
== END 2023-04-02 15:05 | disposition home or self-care (01) ==
LOC: ANHLAB 15:06
PROVIDERS: PCP Family Medicine; Visit Provider Nurse Practitioner Family
DX: R79.89 Other specified abnormal findings of blood chemistry (principal)
CPT/HCPCS: 36415; 80076

== ENCOUNTER 2023-06-20 12:05 | Emergency (ER) | payer OTHER, SELFPAY ==
[2023-06-20 12:11] VITALS: BP 114/80; PULSE 81; RESP 16; TEMP 36.6; O2SAT 100
--- NOTE | 2023-06-20 12:26 | ED.GENADULT ---
HPI - General Adult General Chief complaint: Skin/Abscess/Foreign Body Stated complaint: Rash Time Seen by Provider: 06/20/23 12:26 Source: patient Mode of arrival: ambulatory Limitations: no limitations History of Present Illness HPI narrative: 38-year-old female patient presents to the [facility] with complaints of a rash for the past 2 days. Patient states rash came on suddenly when she woke up Wednesday morning. Patient states she has been using Benadryl cream and did take some oral Benadryl last night for the rash. Patient states that the rash is itchy. Denies coming did not contact with any types of plantar poison heather. Patient denies any new lotions detergents or soaps. Patient states she recently started back on a control patch about a week ago but states there is no rash around the patch area. Denies any new medications. Patient denies any chest pain, shortness of breath, trouble swallowing or any trouble breathing at this time. Related Data Home Medications Medication Instructions Recorded Confirmed melatonin 0.5 mg-theanin 25 1 tablet PO HS PRN Insomnia 06/17/22 05/13/23 mg-lemon,chamom,lavend 12.5 mg chew tablet (Kids Sleep Calm) valacyclovir 500 mg tablet 500 mg PO BID 06/17/22 05/13/23 alprazolam 0.25 mg tablet (Xanax) 0.25 mg PO TID PRN Anxiety 02/16/23 05/13/23 Culturelle Probiotic-Prebiotic 1 cap PO DAILY 02/19/23 05/13/23 acetaminophen 500 mg tablet 1,000 mg PO Q6H PRN Pain 02/19/23 05/13/23 acetazolamide 250 mg tablet 250 mg PO TID 02/19/23 05/13/23 cholecalciferol (vitamin D3) 25 25 mcg PO DAILY 02/19/23 05/13/23 mcg (1,000 unit) capsule (Vitamin D3) doxylamine succinate 25 mg tablet 25 - 50 mg PO HS PRN Insomnia 02/19/23 05/13/23 duloxetine 30 mg capsule,delayed 30 mg PO DAILY 02/19/23 05/13/23 release duloxetine 60 mg capsule,delayed 60 mg PO DAILY 02/19/23 05/13/23 release gabapentin 300 mg capsule 300 mg PO TID 02/19/23 05/13/23 mecobalamin (vitamin B12) 5,000 5,000 mcg PO DAILY 02/19/23 05/13/23 mcg chewable tablet polyethylene glycol 3350 17 17 g PO DAILY 02/19/23 05/13/23 gram/dose oral powder (Miralax) psyllium husk 0.4 gram capsule 0.4 g PO DAILY 02/19/23 05/13/23 (Daily Fiber) progesterone micronized 100 mg 100 mg PO QAM 05/28/23 capsule Allergies Allergy/AdvReac Type Severity Reaction Status Date / Time hydroxychloroquine Allergy Intermediate Hives Verified 06/20/23 12:40 [From Plaquenil] Review of Systems Review of Systems: CONSTITUTIONAL: Denies fever, chills, or sweats. EYES: Denies visual changes, redness, or discharge. ENT: Denies rhinorrhea, congestion, sore throat, or otalgia. CARDIOVASCULAR: Denies chest pain, palpitations, or edema. RESPIRATORY: Denies cough or dyspnea. GASTROINTESTINAL: Denies abdominal pain, nausea, vomiting, or diarrhea. GENITOURINARY: Denies dysuria or hematuria. SKIN: Positive rash with itching. MUSCULOSKELETAL: Denies back pain, joint pain, or myalgia. NEUROLOGIC: Denies headache, numbness, or weakness. PSYCHIATRIC: Denies anxiety or depression. [facility], [facility] Past Medical History Medical History Abdominal pain Anxiety Change in bowel habits Change of skin color Complaint of paresthesia Constipation Depression Ds DNA antibody positive Raynaud's phenomenon (by history or observed) Weight loss Surgical History Surgical History Hx of appendectomy Family History Family History Mother Congestive heart failure Rheumatoid arthritis Epilepsy Father Congestive heart failure Social History Social History Smoking status: Never smoker Alcohol intake: current Alcohol use details: 1 glass of wine occasionaly Substance use: never Substance use type: does not use Last use: Drinks a
== END 2023-06-20 12:40 | disposition home or self-care (01) ==
PROVIDERS: Emergency Provider Nurse Practitioner Family
DX: L50.9 Urticaria, unspecified (principal); F41.9 Anxiety disorder, unspecified
CPT/HCPCS: 99213; G0463

== ENCOUNTER 2023-07-02 10:50 | Outpatient (CLI) | payer OTHER, SELFPAY ==
[2023-07-10 20:29] LABS: Calprotectin, Stool 8 mcg/g
== END 2023-07-02 10:51 | disposition home or self-care (01) ==
LOC: ANHLAB 10:52
PROVIDERS: PCP Internal Medicine; Visit Provider Nurse Practitioner Family
DX: R19.5 Other fecal abnormalities (principal); R10.9 Unspecified abdominal pain
CPT/HCPCS: 83993

== ENCOUNTER 2023-09-09 08:15 | Outpatient (CLI) | payer OTHER, SELFPAY ==
[2023-09-15 21:29] LABS: Pancreatic Elastase, Stool >500 mcg/g
[2023-09-20 18:44] LABS: Fecal Fat, Ql NORMAL (NORMAL)
== END 2023-09-09 08:16 | disposition home or self-care (01) ==
LOC: ANHLAB 08:16
PROVIDERS: PCP Internal Medicine; Visit Provider Nurse Practitioner Family
DX: R10.9 Unspecified abdominal pain (principal); R63.4 Abnormal weight loss
CPT/HCPCS: 82653; 82705

== ENCOUNTER 2023-09-30 08:11 | Outpatient (CLI) | payer OTHER, SELFPAY ==
--- NOTE | ~2023-09-30 | XR_ITS ---
EXAMINATION: XR small bowel follow through DATE: 09/30/2023 10:06 INDICATION: Unspecified abdominal pain. Constipation. TECHNIQUE: Oral contrast was administered, and a time course of radiographs of the abdomen was obtain ed. Fluoroscopy of the small bowel was performed. Fluoroscopy exposure time was 0.2 minutes. The tota l number of images was 16. COMPARISON: CT abdomen and pelvis 02/10/2023 FINDINGS: There are no dilated loops of bowel. There is no abnormal mass or stricture. Transit time from the st [facility] to proximal colon was approximately 1 hour 30 minutes. IMPRESSION: 1. Normal small bowel series. Reviewed, dictated and finalized at location A.
== END 2023-09-30 08:12 | disposition home or self-care (01) ==
PROVIDERS: PCP Internal Medicine; Visit Provider Nurse Practitioner Family
DX: R10.9 Unspecified abdominal pain (principal); R19.4 Change in bowel habit; R19.5 Other fecal abnormalities; R14.0 Abdominal distension (gaseous)
CPT/HCPCS: 74250

== ENCOUNTER 2023-11-15 12:05 | Outpatient (CLI) | payer OTHER, SELFPAY ==
--- NOTE | ~2023-11-15 | XR_ITS ---
Thoracic spine: Clinical Indication: Back pain AP and lateral views were performed. No fracture is seen. There is normal alignment of the vertebrae. The intervertebral disc spaces appe ar normal. Paravertebral soft tissues appear normal. Impression: No significant abnormalities noted. Reviewed, dictated and finalized at [facility]. Impression: No significant abnormalities noted.
--- NOTE | ~2023-11-15 | XR_ITS ---
Lumbosacral Spine: AP and lateral views Clinical History: Pain Findings: The normal lordotic curve is maintained. The vertebral bodies and posterior elements are i ntact. The intervertebral disc spaces are preserved. The sacroiliac joints are normally outlined. Impression: No significant abnormality. Reviewed, dictated and finalized at [facility]. Impression: No significant abnormality.
--- NOTE | ~2023-11-15 | XR_ITS ---
Cervical Spine: AP, lateral, open-mouth views Clinical History: Pain Findings: There is mild reversal normal cervical lordosis. No fracture or subluxation. There is mild degenerative disc change at C5-C6 and C6-C7. Pre-vertebral soft tissues are unremarkable. Impression: Mild degenerative spondylosis, as above. Reviewed, dictated and finalized at [facility]. Impression: Mild degenerative spondylosis, as above.
== END 2023-11-15 12:06 | disposition home or self-care (01) ==
PROVIDERS: PCP Internal Medicine; Visit Provider Internal Medicine
DX: M54.6 Pain in thoracic spine (principal); M47.892 Other spondylosis, cervical region
CPT/HCPCS: 72040; 72070; 72100

== ENCOUNTER 2024-04-17 09:18 | Outpatient (CLI) | payer OTHER, SELFPAY ==
--- OUTSIDE RECORDS SUMMARY | 2024-04-17 09:54 | XMS_ITS | Data Portability ---
Author Organization [facility] Jobaline, Main Office Address [address] [place] [address] Assessment No assessment recorded. Plan of Treatment Reminders Order Date Submit Date Provider Last Modified By Organization Details Last Modified Time Details Appointments None recorded. Lab H. pylori, fingerstick 2022 [address], [place], [address], 3 12:18:51 BMP, serum or plasma 2022 023 [facility] (Lab), [address] [place] [address] [address], [place], [address], 3 17:07:52 test, urine [address], [place], [address], 3 13:23:07 urinalysis, dipstick [address], [place], [address], 3 13:14:10 culture, urine + sensitivity 2022 023 [email or web address] Not available 14:54:42 Referral gastroenter ologist referral - Not eating , had a colonoscopy in 2013 or so. Pleas eval and treat. Thank you 2022 023 HILARY Livingston MD, [address] [facility] [address], [place], [address], 4 08:48:40 Procedures None recorded. Surgeries None recorded. Imaging CT, abdomen + pelvis, w/wo contrast - *Please call pt to schedule* 2022 023 HIL[facility], [address], [place], [address], 3 08:42:18 Medication Orders clobetasol 0.05 % scalp solution 2022 023 HILARY LUX [id number] In [facility], [address], [place], [address], 3 12:17:13 Depo-Medrol 80 mg/mL suspension for injection 2022 023 [email or web address] Not available 3 14:46:41 ciprofloxac in 500 mg tablet 2022 023 [facility]ILARY [facility] [id number] In [facility], [address], [place], [address], 3 12:22:10 omeprazole 20 mg capsule,del ayed release 2022 023 HILARY [facility] [address] In [facility], [address], [place], [address], 3 12:14:33 Compazine 10 mg tablet 2022 023 HILARY [facility] [id number] In [facility], [address], [place], [address], 3 11:39:46 alprazolam 0.25 mg tablet 2022 023 HILARY [facility] [id number] In [facility], [address], [place], [address], 3 09:32:56 gabapentin 300 mg capsule 202218 023 HILARY [facility] [id number] In [facility], [address], [place], [address], 3 06:32:59 Patient TargetsNo targets recorded. Patient InstructionsNo instructions recorded. 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 Pleas eval and treat. Thank you Referring Physician: Mack Saul, Family Medicine, Encounter Date: 02/08/2023 Results Created Date Observation Date Name Description Value Unit Range Abnormal Flag Note LastModifiedBy Organization Detail LastModifiedTime 01/26/2001/25/2023 pregn gini test, urine HCG negati ve Not Available [address], [place], [address], 01/25/2023 12:18:59 02/03/2002/02/2023 urina lysis , dipst ick Leukocytes (reference range: negative ameya/ l) Negati ve Not Available [address], [place], [address], 01/25/2023 12:19:04 02/03/20 23 02/02/2023 urina lysis , dipst ick Nitrite (reference rage: negative mg/dl) positi ve Not Available [address], [place], [address], 01/25/2023 12:19:04 02/03/2002/02/2023 urina lysis , dipst ick Urobilinogen (reference range: 0.2-1 mg/dl) 4 Not Available [address], [place], [address], 01/25/2023 12:19:04 12/02/10 2302/02/2023 urina lysis , dipst ick Protein (reference range: negative mg/dl) Modera te Not Available [address], [place], [address], 01/25/2023 12:19:04 02/03/20 23 02/02/2023 urina lysis , dipst ick pH (reference range: 5-7) 5.5 Not Available [address], [place], [address], 01/25/2023 12:19:04 02/03/2002/02/2023 urina lysis , dipst ick Blood (reference range: negative Abel/ l) Negati ve Not Available [address], [place], [address], 01/25/2023 12:19:04 02/03/2002/02/2023 urina lysis , dipst ick Specific [place] (reference range: 1.005-1.030) 1.020 Not Available [address], [place], [address], 01/25/2023 12:19:04 02/03/2002/02/2023 urina lysis , dipst ick Ketone (reference range: negative mg/dl) Trace Not Available [address], [place], [address], 01/25/2023 12:19:04 02/03/2002/02/2023 urina lysis , dipst ick Bilirubin (reference range: negative mg/dl) Small Not Available [address], [place], [address], 01/25/2023 12:19:04 02/03/2002/02/2023 urina lysis , dipst ick Glucose (reference range: negative mg/dl) 100 Not Available [address], [place], [address], 01/25/2023 12:19:04 02/03/20 23 02/02/2023 urina lysis , dipst ick Appearance Cloudy Not Available [address], [place], [address], 01/25/2023 12:19:04 02/03/20 23 02/02/2023 urina lysis , dipst ick Color [place] Not Available [address], [place], [address], 01/25/2023 12:19:04 02/09/20 23 02/08/2023 H. pylor i, julioe rstic k H PYLORI negati ve Not Available [address], [place], [address], 02/08/2023 12:11:09 02/11/20 23 02/10/2023 CT, abdom en + pelvi s, w/wo contr ast No observ ation record ed. [email or web address] [facility] [address], [place], [address], 03/04/2023 16:47:19 Result Notes None recorded. Problems Name Problem SNOMED Code Status Onset Date Resolution Date Notes Provider Name and Address Organization Details Recorded Time Acute sinusitis 57065053 Active Not Available [facility] 3 07:17:09 Chronic nonspecifi c abdominal pain 477143572 Active Not Available [facility] 3 07:17:09 Paroxysmal cough 74144177 Active Not Available [facility] 3 07:17:09 Upper respirator y infection 19111068 Active Not Available [facility] 3 07:17:09 Acute urticaria 691686950 Active 2022 Not Available [facility] 3 07:17:09 Fatigue 10488684 Active 2022 Not Available [facility] 3 07:17:09 Multiple joint pain 95032784 Active 2022 Not Available [facility] 3 07:17:09 Mixed anxiety and depressive disorder 817582407 Active 2022 Not Available [facility] 3 07:17:09 Tension-ty pe headache 286152947 Active 2022 Catherine Nunez MD [address], [address], [place], [address] , [employer] 3 12:28:59 Paresthesi a 09476216 Active 2022 Catherine Nunez MD [address], [address], [place], [address] , [facility] [facility] 3 12:58:20 Raynaud's phenomenon 572695620 Active 2022 Catherine Nunez MD [address], [address], [place], [address] , [employer] 3 13:08:57 Anxiety disorder 922563933 Active 2022 Catherine Nunez MD [address], [address], [place], [address] , [facility] 3 09:23:52 Insomnia 399744019 Active 2022 Catherine Nunez MD [address], [place], [address] , [employer] 3 09:29:53 Pain of left wrist 8610172152151 02 Active 2022 Catherine Nunez MD [address], [address], [place], [address] , [facility] 3 18:29:56 Abnormal weight 85591086 Active 2022 Isabel Simons MA null, [place] [facility] 3 11:20:35 Nausea 229637054 Active 2022 FELICIANO Hoang [address], [address], [place], [address] , [place] [facility] 3 11:38:32 Gastroesop hageal reflux disease 257337993 Active 2022 FELICIANO Hoang [address], [address], [place], [address] , [place] [facility] 3 12:13:22 Eczema of scalp 5561724061670 0 Active 2022 FELICIANO Hoang [address], [address], [place], [address] , [place] [facility] 3 12:16:20 Dysuria 07220540 Active 2022 FELICIANO Hoang [address], [address], [place], [address] , [place] [facility] 3 12:18:46 Gastritis 3146002 Active 2022 FELICIANO Hoang [address], [address], [place], [address] , [place] [facility] 3 12:21:11 Urinary symptoms 553940378 Active 2022 Jeff Painting RN null, [place] [facility] 3 10:41:34 Screening for disorder Active 2022 FELICIANO Hoang [address], [address], [place], [address] , [place] [facility] 3 12:10:35 Acute urinary tract infection 153407381 Active 2023 FELICIANO Hoang [address], [address], [place], [address] , [place] [facility] 4 12:15:13 Problem Notes None recorded. Procedures Surgical History Date Name Laterality Status Provider Name and Address Organization Details Recorded Time 4 EGD completed Jeff Painting RN [facility] [employer] 03/03/2023 16:16:27 4 Colonoscopy completed Jeff Painting RN [facility] [employer] [facility] 03/01/2023 08:51:06 Imaging Results Imaging Date Name Status LastModified by Organiz ation Details LastModified Time 02/10/2023 CT, abdomen + pelvis, w/wo contrast completed [email or web address] [facility] [address], [place], [address], 03/04/2023 16:47:19 Procedure Notes None recorded. Medical Equipment None Reported. Allergies Allergen ID Allergen Name Allergen Category Reaction Reaction Severity Criticality Documentation Date Start Date Code Code System Note Provider Name and Address Organization Details Recorded Time 50652 Plaquenil medicatio n hives moderate high 11/09/202205862 2 RxNorm Joselyn medina, [employer] null, [facility] [employer] [facility] 3 12:42:49 Medications Name Sig Start Date Stop Date Status Note LastModified by Organization Details LastModified Time cyclobenzap rine 10 mg tablet Take 1 tablet 3 times a day by oral route as needed. 08/13 completed Not Available Not Available Not Available Mirena 21 mcg/24 hr (up to 8 years) 52 mg intrauterin e device Take by intrauter ine route. 2017 active Not Available Not Available Not Avai lable fluconazole 100 mg tablet 04/25 completed Not Available Not Available Not Available doxycycline hyclate 100 mg capsule Take 1 capsule twice a day by oral route. active Not Available Not Available No t Available azithromyci n 250 mg tablet TAKE 2 TABLETS BY MOUTH TODAY, THEN TAKE 1 TABLET DAILY FOR 4 DAYS 10/14 completed Not Available Not Available Not Available ibuprofen 800 mg tablet Take 1 tablet 3 times a day by oral route. 04/25 completed Not Available Not Available Not Available fluconazole 150 mg tablet PLEASE SEE ATTACHED FOR DETAILED DIRECTION S active Not Available Not Available No t Available benzonatate 200 mg capsule Take 1 capsule 3 times a day by oral route as needed. active Not Available Not Available No t Available valacyclovi r 1 gram tablet 04/25 completed Not Available Not Available Not Available clarithromy deisy 500 mg tablet 12/06 completed Not Available Not Available Not Available ibuprofen 200 mg capsule Take 4 capsules twice a day by oral route. 02/26 completed Not Available Not Available Not Available prednisone 20 mg tablet PLEASE SEE ATTACHED FOR DETAILED DIRECTION S active Not Available Not Available No t Available Compazine 10 mg tablet Take 1 tablet 3 times a day by oral route as needed for 4 days. 2022 active Not Available Not Available Not Avai lable acetazolami de 250 mg tablet TAKE 2 TABLETS BY MOUTH 3 TIMES DAILY active Not Available Not Available No t Available diphenoxyla te-atropine 2.5 mg-0.025 mg tablet TAKE 1 TABLET BY MOUTH FOUR TIMES A DAY NEEDED active Not Available Not Available No t Available metronidazo le 500 mg tablet TAKE 1 TABLET (500 MG) BY MOUTH 2 TIMES DAILY FOR 7 DAYS. AVOID ALCOHOL WHILE TAKING. active Not Available Not Available No t Available valacyclovi r 500 mg tablet TAKE 1 TABLET BY MOUTH TWICE A DAY active Not Available Not Available No t Available ciprofloxac in 500 mg tablet Take 1 tablet every 12 hours by oral route for 10 days 2023 active Not Available Not Available Not Avai lable sulfamethox azole 800 mg-trimetho prim 160 mg tablet TAKE 1 TABLET BY MOUTH TWICE DAILY FOR 10 DAYS active Not Available Not Available No t Available doxycycline monohydrate 100 mg tablet Take 1 tablet twice a day by oral route. active Not Available Not Available No t Available triamcinolo ne acetonide 0.1 % topical cream 12/06 completed Not Available Not Available Not Available Depo-Medrol 80 mg/mL suspension for injection Take 1 mL by injection route. 2022 active Not Available Not Available Not Avai lable terconazole 80 mg vaginal suppository 04/25 completed Not Available Not Available Not Available oxycodone-a cetaminophe n 5 mg-325 mg tablet active Not Available Not Available No t Available ceftriaxone 1 gram solution for injection Take 1 g every day by injection route. 12/21 completed [facility]#6 [phone] [phone] 1 Not Available Not Available Not Available amoxicillin 875 mg tablet Take 1 tablet every 12 hours by oral route for 21 days. active Not Available Not Available No t Available alprazolam 0.25 mg tablet TAKE 1 TABLET 3 TIMES A DAY BY ORAL ROUTE NEEDED. active Not Available Not Available No t Available magnesium oxide 400 mg (241.3 mg magnesium) tablet TAKE ONE-HALF TABLET BY MOUTH DAILY SENT IN TABS PER PHARM active Not Available Not Available No t Available methotrexat e sodium 2.5 mg tablet 09/04 completed Not Available Not Available Not Available amitriptyli ne 10 mg tablet TAKE 1 TABLET BY MOUTH EVERY DAY AT BEDTIME active Not Available Not Available No t Available meclizine 25 mg tablet Take 1 tablet 3 times a day by oral route as needed. active Not Available Not Available No t Available benzonatate 100 mg capsule Take 1 capsule 3 times a day by oral route. active Not Available Not Available No t Available hyoscyamine sulfate 0.125 mg tablet active Not Available Not Available Not Available ofloxacin 400 mg tablet TAKE 1 TABLET BY MOUTH EVERY 12 HOURS FOR 5 DAYS 05/01 completed Not Available Not Available Not Available nystatin 100,000 unit/gram topical cream active Not Available Not Available Not Available Guaifenesin AC 10 mg-100 mg/5 mL oral liquid take 1-2 tsp every 4-6hrs prn cough active Not Available Not Available No t Available gabapentin 300 mg capsule TAKE 1 CAPSULE BY MOUTH THREE TIMES A DAY active Not Available Not Available No t Available omeprazole 20 mg capsule,del ayed release TAKE 1 CAPSULE BY MOUTH EVERY DAY BEFORE MEALS active Not Available Not Available No t Available folic acid 1 mg tablet 11/09 completed Not Available Not Available Not Available montelukast 10 mg tablet Take 1 tablet every day by oral route. 02/26 completed Not Available Not Available Not Available hydroxyzine HCl 25 mg tablet TAKE 1 TABLET 3 TIMES A DAY BY ORAL ROUTE. 11/09 completed Not Available Not Available Not Available gabapentin 100 mg capsule TAKE 3 CAPSULES BY MOUTH TWICE A DAY 11/09 completed Not Available Not Available Not Available azelastine 137 mcg (0.1 %) nasal spray 02/26 completed Not Available Not Available Not Available hydroxychlo roquine 200 mg tablet TAKE 2 TABLETS BY MOUTH DAILY 09/04 completed Not Available Not Available Not Available cefuroxime axetil 500 mg tablet 04/25 completed Not Available Not Available Not Available methylpredn isolone 4 mg tablets in a dose pack TAKE 6 TABLETS ON DAY 1 DIRECTED ON PACKAGE AND DECREASE BY 1 TAB EACH DAY FOR A TOTAL OF 6 DAYS 09/04 completed Not Available Not Available Not Available albuterol sulfate HFA 90 mcg/actuati on aerosol inhaler 02/26 completed Not Available Not Available Not Available ketorolac 60 mg/2 mL intramuscul ar solution Inject 1 mL every day by intramusc ular route for 1 day. 10/14 completed Not Available Not Available Not Available clobetasol 0.05 % scalp solution APPLY TO THE AFFECTED SCALP AREA BY TOPICAL ROUTE 2 TIMES PER DAY IN THE MORNING AND EVENING active Not Available Not Available No t Available cefdinir 300 mg capsule 12/06 completed Not Available Not Available Not Available fluticasone propionate 50 mcg/actuati on nasal spray,suspe nsion 2 sprays each nostril daily 02/26 completed Not Available Not Available Not Available medroxyprog esterone 150 mg/mL intramuscul ar suspension 12/21 completed Not Available Not Available Not Available doxycycline hyclate 100 mg tablet TAKE 2 TABLETS BY MOUTH DAILY FOR 21 DAYS 11/09 completed Not Available Not Available Not Available dicyclomine 10 mg capsule active Not Available Not Available Not Available amoxicillin 875 mg-potassiu m clavulanate 125 mg tablet TAKE 1 TABLET BY MOUTH EVERY 12 HOURS FOR 10 DAYS 05/01 completed Not Available Not Available Not Available verapamil ER 120 mg 24 hr capsule,ext ended release TAKE 1 CAPSULE BY MOUTH EVERYDAY AT BEDTIME 2023 active Not Available Not Available Not Avai lable escitalopra m 10 mg tablet TAKE 1 TABLET BY MOUTH EVERY DAY 05/14 completed Not Available Not Available Not Available escitalopra m 20 mg tablet TAKE 1 TABLET BY MOUTH EVERY DAY 09/04 completed Not Available Not Available Not Available nitrofurant oin monohydrate /macrocryst als 100 mg capsule TAKE 1 CAPSULE BY MOUTH TWICE A DAY FOR 10 DAYS active Not Available Not Available No t Available duloxetine 30 mg capsule,del ayed release TAKE 1 CAPSULE BY MOUTH EVERY DAY active Not Available Not Available No t Available duloxetine 60 mg capsule,del ayed release TAKE 1 CAPSULE BY MOUTH EVERY DAY active Not Available Not Available No t Available chlorhexidi ne gluconate 0.12 % mouthwash APPLY 15 MILLILITE RS TO AFFECTED MUCOSAL AREA TWICE A DAY FOR 7 DAYS 05/01 completed Not Available Not Available Not Available hydrochloro thiazide 12.5 mg tablet 12/06 completed Not Available Not Available Not Available Xifaxan 550 mg tablet TAKE 1 TABLET BY MOUTH 3 TIMES A DAY FOR 2 WEEKS active Not Available Not Available No t Available Xulane 150 mcg-35 mcg/24 hr transdermal patch active Not Available Not Available Not Available Breo Ellipta 200 mcg-25 mcg/dose powder for inhalation 02/26 completed Not Available Not Available Not Available Linzess 72 mcg capsule TAKE 1 CAPSULE BY MOUTH DAILY FOR CONSTIPAT ION FOR 1 MONTH active Not Available Not Available No t Available Qulipta 60 mg tablet TAKE 1 TABLET BY MOUTH DAILY active Not Available Not Available No t Available Vitals Date Recorded Body height Body mass index (BMI) Body weight Body temperature Heart rate Oxygen saturation Oxygen saturation in Arterial blood by Pulse oximetry Systolic blood pressure Diastolic blood pressure Provider Name and Address Organization Details Last Updated DateTime 3 165.1 cm 29.5 kg/m2 40700.8 5 g 97.4 [degF] 61 /min 98 % 98 % 100 mm[Hg] 70 mm[Hg] Joselyn medina [facility] [employer] 3 12:41:59 Date Recorded Body height Body mass index (BMI) Body weight Body temperature Heart rate Oxygen saturation Oxygen saturation in Arterial blood by Pulse oximetry Systolic blood pressure Diastolic blood pressure Provider Name and Address Organization Details Last Updated DateTime 3 165.1 cm 28.5 kg/m2 26055.3 g 97.2 [degF] 88 /min 98 % 98 % 110 mm[Hg] 68 mm[Hg] Joselyn medina [facility] [employer] [facility] 3 09:18:04 Date Recorded Body height Body mass index (BMI) Body weight Body temperature Heart rate Oxygen saturation Oxygen saturation in Arterial blood by Pulse oximetry Systolic blood pressure Diastolic blood pressure Provider Name and Address Organization Details Last Updated DateTime 3 165.1 cm 28.3 kg/m2 47381.7 g 98.1 [degF] 91 /min 98 % 98 % 116 mm[Hg] 65 mm[Hg] Isabel River[facility]AVRIL [place] [facility] 3 11:24:03 Date Recorded Body height Body mass index (BMI) Body weight Body temperature Heart rate Oxygen saturation Oxygen saturation in Arterial blood by Pulse oximetry Systolic blood pressure Diastolic blood pressure Provider Name and Address Organization Details Last Updated DateTime 3 165.1 cm 27.5 kg/m2 32424.7 4 g 97.4 [degF] 67 /min 97 % 97 % 116 mm[Hg] 74 mm[Hg] Isabel Simons MA [place] [facility] [place] [employer] 3 12:02:37 Social History Question Answer Notes LastModified by Organizat ion Details LastModified Time Tobacco Smoking Status Never Smoker Not Available [facility] 04/22/2022 15:40:37 What Is Your Level Of Alcohol Consumption? Occasional [id number] Information not available 04/22/2022 What Is Your Level Of Caffeine Consumption? None [id number] Information not available 04/22/2022 In The 14 Days Before Symptom Onset, Have You Had Close Contact With A Laboratory-confirm ed COVID-19 While That Case Was Ill? No [id number] Information not available 04/22/2022 In The 14 Days Before Symptom Onset, Have You Had Close Contact With A Person Who Is Under Investigation For COVID-19 While That Person Was Ill? No [id number] Information not available 04/22/2022 What Type Of Diet Are You Following? REGULAR [id number] Information not available 04/22/2022 Have You Ever Been Counseled For Unhealthy Alcohol Use? No [id number] Information not available 04/22/2022 Do You Use Any Illicit Or Recreational Drugs? No [id number] Information not available 04/22/2022 Has Tobacco Cessation Counseling Been Provided? No [id number] Information not available 04/22/2022 Have You Recently Traveled Abroad? No [id number] Information not available 04/22/2022 Do You Have Any Dietary Restrictions? No [id number] Information not available 04/22/2022 Do You Or Have You Ever Used Any Other Forms Of Tobacco Or Nicotine? No [id number] Information not available 04/22/2022 Sex: Unknown Functional Status Question Answer Note LastModified by Organizat ion Details LastModified Time What is your exercise level? None [id number] Information not available 04/22/2022 Mental Status None recorded. Family History Relationship Description Onset Age of this Age Resolved Age Notes LastModified by Organization Details LastModified Time Paternal Grandfather Diabetes mellitus [id number] Not available 04/22/2022 15:40:40 Paternal Grandfather Hypertensive disorder [id number] Not available 04/22/2022 15:40:40 Maternal Grandfather Family history of malignant neoplasm [id number] Not available 04/22/2022 15:40:40 Paternal Aunt Family history of malignant neoplasm [id number] Not available 04/22/2022 15:40:40 Medical History No medical history recorded. Gynecological History Statement/Question Response Current Control Method IUD Obstetrics History GPAL:G 0 P 0 0 0 0 Immunizations Vaccine Type Date Status Note Provider Nam e and Address Organization Details Recorded Time Influenza, split virus, quadrivalent, PF 12/07/2022 completed Catherine Nunez MD [address] [place] [address], [place], [address], [facility] [employer] 12/07/2022 18:20:52 Past Encounters Encounter ID Performer Location Encounter Start Date Encounter Closed Date Diagnosis/Indication Diagnosis SNOMED-CT Code Diagnosis ICD10 Code Diagnosis Note [id number] [facility] [address] 08/20/2020 00:00:00 08/20/2020 22:19:53 [id number] [facility] [address] 02/26/2021 00:00:00 02/26/2021 19:08:26 [id number] [facility] [address] [place] [address] 04/07/2021 00:00:00 04/07/2021 09:27:21 [id number] [facility] [place] [address] [facility] [address] , [place] [address] 06/10/2021 00:00:00 06/10/2021 10:27:56 [id number] [facility] [place] [address] [facility] [address] , [place] [address] 09/22/2021 00:00:00 09/22/2021 19:14:45 [id number] [facility] [place] [address] [facility] [address] , [place] [address] 10/14/2021 00:00:00 10/14/2021 21:33:54 [id number] [facility] [facility] [place] [address] [facility] [place] [address] 10/28/2021 00:00:00 10/28/2021 19:17:43 [id number] [facility] [place] [address] [facility] [place] [address] 11/18/2021 00:00:00 11/18/2021 21:36:26 [id number] [facility] [place] [address] [facility] [place] [address] 01/01/2022 00:00:00 01/02/2022 06:02:41 [id number] [facility] [place] [address] [facility] [place] [address] 04/07/2022 00:00:00 04/07/2022 09:32:42 [id number] Catherine Nunez MD [facility] [place] [address] [facility] [place] [address] 05/01/2022 12:23:20 05/01/2022 12:46:49 Acute urticaria [id number] L50.9 Call rheumatolo gist to see if this could be d/t the plaquenil. 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 lupus. Mixed anxi ety and depressive disorder 494928868 F41.8 F/u in 3-4 weeks. Will increase cymbalta. [id number] Catherine Nunez MD [facility] [address] [place] [address] 09/04/2022 12:18:35 09/16/2022 16:45:14 Tension-type headache 217153410 G44.209 Has seen a chiropract or and getting acupunctur e.Get in to see chiropract or. Multiple joint pain 3567 8005 M25.50 F/u with rheumatolo gist. Take cymbalta 60 and 30 mg daily [id number] Catherine Nunez MD [facility] [address] [facility] [place] [address] [address] [address] 11/09/2022 12:35:12 11/09/2022 13:50:37 Paresthesia 24402413 R20.2 Suggest taking vit B12 Raynaud's phenomenon 266 536685 I73.00 May need to increase verapamil Mixed anxi ety and depressive disorder 595718977 F41.8 Continue cymbalta. [id number] Catherine Nunez MD [facility] [address] [place] [address] 12/07/2022 09:10:09 12/07/2022 09:37:36 Anxiety disorder 824817739 F41.9 Use alprazolam if starts to pick and if gets anxious. Insomnia 356112077 G47.0 0 Use melatonin. Administra tion of influenza vaccine 18307837 Z23 Paresthesia 26689450 R20 .2 Doing better with gabapentin ... continue this. Pain of left wrist 37446 98881 12288 M25.532 Use wrist splint at night. [id number] FELICIANO Hoang [facility] [place] [address] [facility] [place] [address] 01/05/2023 11:08:38 01/05/2023 11:54:46 Abnormal weight 18182307 R63.4 Multiple joint pain 3567 8005 M25.50 Tension-type headache 39 5807487 G44.209 Nausea 798160062 R11.0 [id number] FELICIANO Hoang [facility] [place] [address] [facility] [place] [address] 01/25/2023 11:47:01 01/25/2023 12:36:02 Gastroesophageal reflux disease 651788111 K21.9 Eczema of scalp 68206702 13 2100 L30.9 Dysuria 62224923 R30.0 Gastritis 5188983 K29.70 [id number] FELICIANO Hoang [facility] [place] [facility] [facility] [place] [address] 02/08/2023 11:42:38 03/08/2023 10:45:49 Screening for disorder 990054378 Z13.9 Gastroesop hageal reflux disease 403973500 K21.9 Abnormal weight 98445300 R63.4 Health Concerns Section Related Observation LastModified by Organization Detai ls LastModified Time None Recorded Concern Status LastModified by Organization Details LastModified Time None Recorded Advance Directives Directive None Recorded Payers Encounter Date Sequence Insurance Name Policy Number Policy Mason Covered Member ID Mason Member ID Guarantor Name 11/09/2022 1 [employer] OPEN [employer]ESS Tyrone Elina [id number] OI Jazmine Elina 12/07/2022 1 [employer] Tyrone Elina [id number] OI Jazmine Elina 01/05/2023 1 [employer] Tyrone Elina [id number] OI Jazmine Elina 01/25/2023 1 [employer] Tyrone Leina [id number] TELLO Martin Meter 02/08/2023 1 [employer] Tyrone Frost [id number] TELLO Martin Meter Notes Date Note Type Note Provider Name and Address Organization Details Recorded Time 11/09/2022 text/html Here today c/o numb and achy. Hurts to sit and stand. Is having numbness in fingers and toes up to thighs. Using ibuprofen and aspercreme. Is hot and cold. Taking gabapentin and has helped but last 2 weeks no help. Has Raynaud's. It is getting worse. Rubs her muscles and uses heat to areas. Catherine Nunez MD [address], [place], [address], [employer] 11/10/2022 06:33:00 12/07/2022 text/html Here today for f /u of gabapentin. Feels like it is working well. She has lost weight has increased activity. Left wrist is swelling. Anxiety is manifesting as picking of scalp and ear. Would like alprazolam. Worried about addictive potential. Catherine Nunez MD [address], [place], [address], [employer] 12/07/2022 18:31:31 01/05/2023 text/html low back pain , all joints ache , headache , nausea FELICIANO Hoang [address], [place], [address], [employer] 01/11/2023 15:43:19 01/25/2023 text/html dry itchy scalp, gerd, dysuria , no fever FELICIANO Hoang [address], [place], [address], [employer] 02/06/2023 09:59:32 OBGyn Episode No OBEpisode recorded.
--- OUTSIDE RECORDS SUMMARY | 2024-04-17 09:54 | XMS_ITS | Data Portability ---
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 Continue to follow-up with Vince for anxiety Not available 07/10/2023 19:53:40 08/30/2023 08/30/2023 continue current therapy I will see her in 2 months I believe she has some other specialty visits, [email or web address] Not available 09/26/2023 13:16:51 09/29/2023 09/29/2023 I will give her a little bit of Flexeril for spasm. Chiropractic referral. Overweight healthy lifestyle care instructions given. Keep regular appointment or if she does not get better with the chiropractic treatment [email or web address] Not available 10/10/2023 16:05:18 11/01/2023 11/01/2023 we will continue current therapy I will see her in 3 months she does continue to follow up with the specialists [email or web address] Not available 11/07/2023 18:24:32 Plan of Treatment Reminders Order Date Submit Date Provider Last Modified By Organization Details Last Modified Time Details Appointments None recorded. Lab lipid panel, serum 2023 024 [facility], [address], [address], [place], [address], 4 05:39:50 ESR (erythrocyt e sedimentati on rate), blood 2023 024 [facility], [address], [address], [place], [address], 4 05:39:52 CRP, high sensitivity , serum or plasma 2023 024 [facility], [address], [address], [place], [address], 4 05:39:48 CBC w/ auto diff 2023 024 [facility], [address], [address], [place], [address], 4 05:39:51 CMP, serum or plasma 2023 024 [facility], [address], [address], [place], [address], 4 05:39:50 TSH + free T4, serum 2023 024 [facility], [address], [address], [place], [address], 4 05:39:49 T3, free, serum or plasma 2023 024 Gregor BRITT, [address], [place], [address], 4 05:39:53 cortisol, serum or plasma 2023 024 Gregor BR[address], [address], [place], [address], 05:39:51 Referral chiropracto r referral 2023 024 HILARY Arenas Sandra, [address], [address], [place], [address], 16:23:01 Procedures None recorded. Surgeries None recorded. Imaging None recorded. Medication Orders cyclobenzap rine 10 mg tablet 2023 024 [id number], [address], [place], [place], [id number], 17:10:01 Patient TargetsNo targets recorded. Patient Instructions Encounter Date Encounter Id Patient Instructions Last Modified By Organization Details Last Modified Time 09/29/2023 [id number] A healthy lifestyle: care instructions Not available 09/29/2023 17:10:01 Reason for Referral Chiropractor Referral for Lo w back pain Referring Physician: Zay Bennett, Internal Medicine, Encounter Date: 09/29/2023 Results Created Date Observation Date Name Description Value Unit Range Abnormal Flag Note LastModifiedBy Organization Detail LastModifiedTime 06/30/1907/01/2023 C-FELICIANO CTIVE PROTE IN, CARDI AC C-reactive protein, cardiac 3.68 mg/L 0.00-3 .00 above high normal Relat antonio Risk for Futur e Cardi ovasc ular Event Low <1.00 Lusby ge 1.00 - 3.00 High >3.00 Not Available [facility] ([facility]) [address] [place], [address], 07/01/2023 05:39:48 06/30/1907/01/2023 TSH+F REE T4 TSH 3.390 uIU/m L 0.450- 4.500 Not Available [facility] ([facility]) [address] [facility], [place], [address], 07/01/2023 05:39:49 06/30/19 24 07/01/2023 TSH+F REE T4 T4,free(dire ct) 0.89 NG/dL 0.82-1 .77 Not Available [facility] ([facility]) [address] [place], [address], 07/01/2023 05:39:49 06/30/19 24 07/01/2023 LIPID PANEL cholesterol, total 112 mg/dL 100-19 9 Not Available [facility] ([facility]) [address] [place], [address], 07/01/2023 05:39:49 06/30/19 24 07/01/2023 LIPID PANEL triglyceride s 86 mg/dL 0-149 Not Available [facility] ([facility]) [address] [place], [address], 07/01/2023 05:39:49 06/30/19 24 07/01/2023 LIPID PANEL HDL cholesterol 48 mg/dL >39 Not Available [facility] ([facility]) [address] [place], [address], 07/01/2023 05:39:49 06/30/19 24 07/01/2023 LIPID PANEL VLDL cholesterol tunde 17 mg/dL 5-40 Not Available [facility] ([facility]) [address] [place], [address], 07/01/2023 05:39:49 06/30/19 24 07/01/2023 LIPID PANEL LDL chol calc ([facility]) 47 mg/dL 0-99 Not Available [facility] ([facility]) [address] [place], [address], 07/01/2023 05:39:49 06/30/19 24 07/01/2023 COMP. METAB OLIC PANEL (14) glucose 94 mg/dL 70-99 Not Available [facility] ([facility]) [address] [place], [address], 07/01/2023 05:39:50 06/30/19 24 07/01/2023 COMP. METAB OLIC PANEL (14) BUN 13 mg/dL 6-20 Not Available [facility] ([facility]) [address] [facility], [place], [address], 07/01/2023 05:39:50 06/30/19 24 07/01/2023 COMP. METAB OLIC PANEL (14) creatinine 0.73 mg/dL 0.57-1 .00 Not Available [facility] ([facility]) [address] [facility], [place], [address], 07/01/2023 05:39:50 06/30/19 24 07/01/2023 COMP. METAB OLIC PANEL (14) eGFR 108 mL/mi n/1.7 3 >59 Not Available [facility] ([facility]) [address] [place], [address], 07/01/2023 05:39:50 06/30/19 24 07/01/2023 COMP. METAB OLIC PANEL (14) BUN/creatini ne ratio 18 9-23 Not Available [facility] ([facility]) [address] [place], [address], 07/01/2023 05:39:50 06/30/19 24 07/01/2023 COMP. METAB OLIC PANEL (14) sodium 138 mmol/ L 134-14 4 Not Available [facility] ([facility]) [address] [place], [address], 07/01/2023 05:39:50 06/30/19 24 07/01/2023 COMP. METAB OLIC PANEL (14) potassium 4.6 mmol/ L 3.5-5. 2 Not Available [facility] ([facility]) [address] [place], [address], 07/01/2023 05:39:50 06/30/19 24 07/01/2023 COMP. METAB OLIC PANEL (14) chloride 106 mmol/ L 96-106 Not Available [facility] ([facility]) [address] [place], [address], 07/01/2023 05:39:50 06/30/19 24 07/01/2023 COMP. METAB OLIC PANEL (14) carbon dioxide, total 20 mmol/ L 20-29 Not Available [facility] ([facility]) [address] [facility] [place], [address], 07/01/2023 05:39:50 06/30/19 24 07/01/2023 COMP. METAB OLIC PANEL (14) calcium 9.6 mg/dL 8.7-10 .2 Not Available [facility] ([facility]) [address] [place], [address], 07/01/2023 05:39:50 06/30/19 24 07/01/2023 COMP. METAB OLIC PANEL (14) protein, total 6.7 g/dL 6.0-8. 5 Not Available [facility] ([facility]) [address] [facility] [place], [address], 07/01/2023 05:39:50 06/30/19 24 07/01/2023 COMP. METAB OLIC PANEL (14) albumin 4.1 g/dL 3.9-4. 9 Not Available [facility] ([facility]) [address] [facility] [place], [address], 07/01/2023 05:39:50 06/30/19 24 07/01/2023 COMP. METAB OLIC PANEL (14) globulin, total 2.6 g/dL 1.5-4. 5 Not Available [facility] ([facility]) [address] [place], [address], 07/01/2023 05:39:50 06/30/19 24 07/01/2023 COMP. METAB OLIC PANEL (14) A/G ratio 1.6 1.2-2. 2 Not Available [facility] ([facility]) [address] [facility] [place], [address], 07/01/2023 05:39:50 06/30/19 24 07/01/2023 COMP. METAB OLIC PANEL (14) bilirubin, total 0.2 mg/dL 0.0-1. 2 Not Available [facility] ([facility]) [address] [facility] [place], [address], 07/01/2023 05:39:50 06/30/19 24 07/01/2023 COMP. METAB OLIC PANEL (14) alkaline phosphatase 83 IU/L 44-121 Not Available [facility] ([facility]) [address] [facility] [place], [address], 07/01/2023 05:39:50 06/30/19 24 07/01/2023 COMP. METAB OLIC PANEL (14) AST (SGOT) 11 IU/L 0-40 Not Available [facility] ([facility]) [address] [facility], [place], [address], 07/01/2023 05:39:50 06/30/19 24 07/01/2023 COMP. METAB OLIC PANEL (14) ALT (SGPT) 10 IU/L 0-32 Not Available [facility] ([facility]) [address] [place], [address], 07/01/2023 05:39:50 06/30/19 24 07/01/2023 CORTI JENY cortisol 18.1 ug/dL 6.2-19 .4 Lisa matson Note: The refer ence inter griselda and monica ing for this test is for an AM colle ction . If this is a PM colle ction lisa matson use: Corti jeny PM: 2.3-1 1.9 Not Available [facility] ([facility]) [address] [place], [address], 07/01/2023 05:39:51 06/30/19 24 06/30/2023 CBC WITH DIFFE RENTI AL/PL ATELE T WBC 8.7 x10e3 /uL 3.4-10 .8 Not Available [facility] ([facility]) [address] [place], [address], 07/01/2023 05:39:51 06/30/19 24 06/30/2023 CBC WITH DIFFE RENTI AL/PL ATELE T RBC 4.03 x10e6 /uL 3.77-5 .28 Not Available [facility] ([facility]) [address] [facility], [place], [address], 07/01/2023 05:39:51 06/30/19 24 06/30/2023 CBC WITH DIFFE RENTI AL/PL ATELE T hemoglobin 11.7 g/dL 11.1-1 5.9 Not Available [facility] ([facility]) [address] [place], [address], 07/01/2023 05:39:51 06/30/19 24 06/30/2023 CBC WITH DIFFE RENTI AL/PL ATELE T hematocrit 36.1 % 34.0-4 6.6 Not Available [facility] ([facility]) [address] [place], [address], 07/01/2023 05:39:51 06/30/1906/30/2023 CBC WITH DIFFE RENTI AL/PL ATELE T MCV 90 fL 79-97 Not Available [facility] ([facility]) [address] [place], [address], 07/01/2023 05:39:51 06/30/1906/30/2023 CBC WITH DIFFE RENTI AL/PL ATELE T MCH 29.0 pg 26.6-3 3.0 Not Available [facility] ([facility]) [address] [place], [address], 07/01/2023 05:39:51 06/30/19 24 06/30/2023 CBC WITH DIFFE RENTI AL/PL ATELE T MCHC 32.4 g/dL 31.5-3 5.7 Not Available [facility] ([facility]) [address] [facility], [place], [address], 07/01/2023 05:39:51 06/30/19 24 06/30/2023 CBC WITH DIFFE RENTI AL/PL ATELE T RDW 12.4 % 11.7-1 5.4 Not Available [facility] ([facility]) [address] [facility], [place], [address], 07/01/2023 05:39:51 06/30/19 24 06/30/2023 CBC WITH DIFFE RENTI AL/PL ATELE T platelets 485 x10e3 /uL 150-45 0 above high normal Not Available [facility] ([facility]) [address] [facility], [place], [address], 07/01/2023 05:39:51 06/30/19 24 06/30/2023 CBC WITH DIFFE RENTI AL/PL ATELE T neutrophils 53 % notest ab. Not Available [facility] ([facility]) [address] [facility], [place], [address], 07/01/2023 05:39:51 06/30/19 24 06/30/2023 CBC WITH DIFFE RENTI AL/PL ATELE T lymphs 38 % notest ab. Not Available [facility] ([facility]) [address] [facility], [place], [address], 07/01/2023 05:39:51 06/30/19 24 06/30/2023 CBC WITH DIFFE RENTI AL/PL ATELE T monocytes 6 % notest ab. Not Available [facility] ([facility]) [address] [facility], [place], [address], 07/01/2023 05:39:51 06/30/19 24 06/30/2023 CBC WITH DIFFE RENTI AL/PL ATELE T eos 2 % notest ab. Not Available [facility] ([facility]) [address] [place], [address], 07/01/2023 05:39:51 06/30/19 24 06/30/2023 CBC WITH DIFFE RENTI AL/PL ATELE T basos 1 % notest ab. Not Available [facility] ([facility]) [address] [facility], [place], [address], 07/01/2023 05:39:51 06/30/19 24 06/30/2023 CBC WITH DIFFE RENTI AL/PL ATELE T neutrophils (absolute) 4.7 x10e3 /uL 1.4-7. 0 Not Available [facility] ([facility]) [address] [facility], [place], [address], 07/01/2023 05:39:51 06/30/19 24 06/30/2023 CBC WITH DIFFE RENTI AL/PL ATELE T lymphs (absolute) 3.3 x10e3 /uL 0.7-3. 1 above high normal Not Available [facility] ([facility]) [address] [place], [address], 07/01/2023 05:39:51 06/30/19 24 06/30/2023 CBC WITH DIFFE RENTI AL/PL ATELE T monocytes(ab solute) 0.5 x10e3 /uL 0.1-0. 9 Not Available [facility] ([facility]) [address] [place], [address], 07/01/2023 05:39:51 06/30/19 24 06/30/2023 CBC WITH DIFFE RENTI AL/PL ATELE T eos (absolute) 0.1 x10e3 /uL 0.0-0. 4 Not Available [facility] ([facility]) [address] [place], [address], 07/01/2023 05:39:51 06/30/19 24 06/30/2023 CBC WITH DIFFE RENTI AL/PL ATELE T baso (absolute) 0.1 x10e3 /uL 0.0-0. 2 Not Available [facility] ([facility]) [address] [facility], [place], [address], 07/01/2023 05:39:51 06/30/19 24 06/30/2023 CBC WITH DIFFE RENTI AL/PL ATELE T immature granulocytes 0 % notest ab. Not Available [facility] ([facility]) [address] [facility], [place], [address], 07/01/2023 05:39:51 06/30/19 24 06/30/2023 CBC WITH DIFFE RENTI AL/PL ATELE T immature grans (abs) 0.0 x10e3 /uL 0.0-0. 1 Not Available [facility] ([facility]) [address] [facility], [place], [address], 07/01/2023 05:39:51 06/30/19 24 07/01/2023 SEDIM ENTAT ION RATE- WESTE RGREN sedimentatio n rate-westerg nuria 4 mm/HR 0-32 Not Available [facility] ([facility]) [address] [facility], [place], [address], 07/01/2023 05:39:52 06/30/19 24 07/01/2023 TRIIO DOTHY ADRIÁN E (T3), FREE triiodothyro nine (T3), free 2.7 pg/mL 2.0-4. 4 Not Available [facility] ([facility]) [address] [place], [address], 07/01/2023 05:39:52 09/30/19 24 09/30/2023 XR, abdom en + RF, small bowel , w/ air, w/ contr ast via enter oclys is tube No observ ation record ed. [facility] [address], [place], [address], 11/07/2023 18:25:56 11/02/19 24 12/27/2021 MRI, thora cic spine , w/o contr ast No observ ation record ed. [email or web address] Not Available 2023 23:22:12 11/02/19 24 12/26/2021 MRI, cervi tunde spine , w/o contr ast No observ ation record ed. [email or web address] Not Available 2023 23:22:12 11/02/19 24 12/27/2021 MRI, lumba r spine , w/wo contr ast No observ ation record ed. Not Available 2023 22:12:40 11/15/19 24 11/15/2023 XR, cervi tunde spine , 2 or 3 view No observ ation record ed. [address], [address], 11/19/2023 16:09:46 11/15/19 24 11/15/2023 XR, thora cic spine , 2 view No observ ation record ed. [address] [place] [address], [id number], 11/19/2023 16:09:47 11/15/19 24 11/15/2023 XR, lumba r spine , 2 view No observ ation record ed. [address] [place] [address], [id number], 11/19/2023 16:09:47 11/15/19 24 11/15/2023 XR, lumba r spine , 2 view No observ ation record ed. [address] [place] [address], [id number], 11/19/2023 16:09:48 11/15/19 24 11/15/2023 XR, thora cic spine , 2 view No observ ation record ed. [facility] ([facility]) [address] [place] [address] [place] [address], [phone], 11/25/2023 13:07:15 Result Notes None recorded. Problems Name Problem SNOMED Code Status Onset Date Resolution Date Notes Provider Name and Address Organization Details Recorded Time Fatigue 92082194 Active 024 Zay Bennett MD Attn: Accounting ,[address] [facility], [place], [address] , [facility] 4 19:52:54 Anxiety 06125785 Active 024 Zay Bennett MD Attn: Accounting ,[address] [facility], [place], [address] , [facility] - [facility] 4 19:52:57 Headache 95475682 Active 024 Zay Bennett MD Attn: Accounting ,[address] [facility], [place], [address] , [facility] - SI 4 13:17:02 Low back pain 356249906 Active 024 Lolly Ornelas MA null, [place] - [facility] 4 16:59:28 Problem Notes None recorded. Procedures Surgical History Date Name Laterality Status Provider Name and Address Organization Details Recorded Time appendectomy completed Guanaco Saul MA [facility] 08/30/2023 10:40:39 delivery completed Guanaco Saul MA [facility] 08/30/2023 10:40:46 Imaging Results Imaging Date Name Status LastModified by Organization Details LastModified Time 09/30/2023 XR, abdomen + RF, small bowel, w/ air, w/ contrast via enteroclysis tube completed [email or web address] [facility] [address], [place], [address], 11/07/2023 18:25:56 12/27/2021 MRI, thoracic spine, w/o contrast completed [email or web address] Information not available 11/03/2023 23:22:12 12/26/2021 MRI, cervical spine, w/o contrast completed [email or web address] Information not available 11/03/2023 23:22:12 12/27/2021 MRI, lumbar spine, w/wo contrast completed [email or web address] Information not available 11/07/2023 22:12:40 11/15/2023 XR, cervical spine, 2 or 3 view completed [address] [place] [address], [id number], 11/19/2023 16:09:46 11/15/2023 XR, thoracic spine, 2 view completed [address] [place] [address], [id number], 11/19/2023 16:09:47 11/15/2023 XR, lumbar spine, 2 view completed [address] [place] [address], [id number], 11/19/2023 16:09:47 11/15/2023 XR, lumbar spine, 2 view [address] [place] [address], [id number], 11/19/2023 16:09:48 11/15/2023 XR, thoracic spine, 2 view completed [facility] ([facility]) [address] [place] [address] [place] [address], [phone], 11/25/2023 13:07:15 Procedure Notes None recorded. Medical Equipment None Reported. Allergies Allergen ID Allergen Name Allergen Category Reaction Reaction Severity Criticality Documentation Date Start Date Code Code System Note Provider Name and Address Organization Details Recorded Time 654618 hydroxych loroquine medicatio n Not available Not available Not available 08/30/2023 5521 RxNorm Not Available Not Available Not Available Medications Name Sig Start Date Stop Date Status Note LastModified by Organization Details LastModified Time cyclobenzap rine 10 mg tablet TAKE 1 TABLET BY MOUTH THREE TIMES DAILY NEEDED active Not Available Not Available No t Available medroxyprog esterone 10 mg tablet TAKE 1 TABLET (10 MG) BY MOUTH DAILY. 06/27 completed Not Available Not Available Not Available fluconazole 150 mg tablet PLEASE SEE ATTACHED FOR DETAILED DIRECTION S 09/28 completed Not Available Not Available Not Available prednisone 20 mg tablet PLEASE SEE ATTACHED FOR DETAILED DIRECTION S 06/27 completed Not Available Not Available Not Available acetazolami de 250 mg tablet TAKE 2 TABLETS BY MOUTH 3 TIMES DAILY 06/27 completed Not Available Not Available Not Available metronidazo le 500 mg tablet PLEASE SEE ATTACHED FOR DETAILED DIRECTION S 09/28 completed Not Available Not Available Not Available fexofenadin e 180 mg tablet TAKE 1 TABLET BY MOUTH TWICE A DAY FOR 7 DAYS 06/27 completed Not Available Not Available Not Available valacyclovi r 500 mg tablet TAKE 1 TABLET BY MOUTH TWICE A DAY active PRN Not Available Not Available No t Available ciprofloxac in 500 mg tablet TAKE 1 TABLET BY MOUTH EVERY 12 HOURS FOR 10 DAYS 06/27 completed Not Available Not Available Not Available sulfamethox azole 800 mg-trimetho prim 160 mg tablet TAKE 1 TABLET BY MOUTH TWICE DAILY FOR 10 DAYS 06/27 completed Not Available Not Available Not Available alprazolam 0.25 mg tablet TAKE 1 TABLET BY MOUTH THREE TIMES DAILY active Not Available Not Available No t Available magnesium oxide 400 mg (241.3 mg magnesium) tablet TAKE ONE-HALF TABLET BY MOUTH DAILY SENT IN TABS PER PHARM 08/29 completed Not Available Not Available Not Available methotrexat e sodium 2.5 mg tablet TAKE 5 TABLETS (12.5 MG) BY MOUTH WEEKLY 06/27 completed Not Available Not Available Not Available amitriptyli ne 10 mg tablet TAKE 2 TABLETS BY MOUTH EVERY DAY AT BEDTIME FOR 1 MONTH 08/29 completed Not Available Not Available Not Available triamcinolo ne acetonide 0.025 % topical ointment APPLY TOPICALLY TWICE A DAY 06/27 completed Not Available Not Available Not Available gabapentin 300 mg capsule TAKE 1 CAPSULE BY MOUTH THREE TIMES A DAY 09/28 completed Not Available Not Available Not Available omeprazole 20 mg capsule,del ayed release TAKE 1 CAPSULE BY MOUTH EVERY DAY BEFORE MEALS active Not Available Not Available No t Available gabapentin 100 mg capsule TAKE 3 CAPSULES BY MOUTH TWICE A DAY 06/27 completed Not Available Not Available Not Available clobetasol 0.05 % scalp solution APPLY TO THE AFFECTED SCALP AREA BY TOPICAL ROUTE 2 TIMES PER DAY IN THE MORNING AND EVENING 06/27 completed Not Available Not Available Not Available verapamil ER 120 mg 24 hr capsule,ext ended release TAKE 1 CAPSULE BY MOUTH EVERYDAY AT BEDTIME 09/28 completed Not Available Not Available Not Available cyclobenzap rine 5 mg tablet active Not Available Not Available Not Available mirtazapine 7.5 mg tablet TAKE 1 TABLET BY MOUTH EVERY DAY AT BEDTIME FOR 1 MONTH 09/28 completed Not Available Not Available Not Available nitrofurant oin monohydrate /macrocryst als 100 mg capsule TAKE 1 CAPSULE BY MOUTH TWICE A DAY FOR 10 DAYS 06/27 completed Not Available Not Available Not Available duloxetine 30 mg capsule,del ayed release TAKE 1 CAPSULE BY MOUTH EVERY DAY active Not Available Not Available No t Available duloxetine 60 mg capsule,del ayed release TAKE 1 CAPSULE BY MOUTH EVERY DAY 2023 active Not Available Not Available Not Avai lable pregabalin 75 mg capsule active Not Available Not Available Not Available melatonin active 2 tabs a day Not Available Not Available Not Available Xifaxan 550 mg tablet TAKE 1 TABLET BY MOUTH 3 TIMES A DAY FOR 2 WEEKS 06/27 completed Not Available Not Available Not Available Xulane 150 mcg-35 mcg/24 hr transdermal patch APPLY 1 PATCH TO THE SKIN DIRECTED active Not Available Not Available No t Available Linzess 72 mcg capsule TAKE 1 CAPSULE BY MOUTH EVERY DAY FOR CONSTIPAT ION FOR 3 MONTHS active Not Available Not Available No t Available Qulipta 60 mg tablet TAKE 1 TABLET BY MOUTH DAILY active Not Available Not Available No t Available Qulipta 30 mg tablet TAKE 1 TABLET BY MOUTH DAILY active Not Available Not Available No t Available Vitals Date Recorded Body height Body mass index (BMI) Body weight Heart rate Oxygen saturation Oxygen saturation in Arterial blood by Pulse oximetry Systolic blood pressure Diastolic blood pressure Provider Name and Address Organization Details Last Updated DateTime 4 162.56 cm 26.1 kg/m2 27244.4 g 79 /min 99 % 99 % 116 mm[Hg] 74 mm[Hg] Stephanie Pineda [place] - [facility] 4 16:45:22 Date Recorded Body height Body mass index (BMI) Body weight Heart rate Oxygen saturation Oxygen saturation in Arterial blood by Pulse oximetry Systolic blood pressure Diastolic blood pressure Provider Name and Address Organization Details Last Updated DateTime 4 162.56 cm 28.5 kg/m2 19852.3 3 g 81 /min 98 % 98 % 118 mm[Hg] 78 mm[Hg] Guanaco Saul MA [place] - [facility] 4 10:46:04 Date Recorded Body height Body mass index (BMI) Body weight Oxygen saturation Oxygen saturation in Arterial blood by Pulse oximetry Heart rate Pain severity - 0-10 verbal numeric rating [Score] - Reported Systolic blood pressure Diastolic blood pressure Provider Name and Address Organization Details Last Updated DateTime 4 162.56 cm 29.5 kg/m2 62290.8 9 g 100 % 100 % 87 /min 5 126 mm[Hg] 80 mm[Hg] Guanaco Saul MA [facility] 4 16:23:58 Date Recorded Body height Body mass index (BMI) Body weight Heart rate Oxygen saturation Oxygen saturation in Arterial blood by Pulse oximetry Systolic blood pressure Diastolic blood pressure Provider Name and Address Organization Details Last Updated DateTime 4 162.56 cm 29.7 kg/m2 34186.7 7 g 97 /min 97 % 97 % 126 mm[Hg] 76 mm[Hg] Barbara Anglin MA [facility] 4 10:53:43 Social History Question Answer Notes LastModified by Organizat ion Details LastModified Time Tobacco Smoking Status Never Smoker Stephanie Pineda MA [facility] 06/28/2023 16:42:42 Do You Have An Advance Directive? No Information not available 08/30/2023 What Is Your Level Of Alcohol Consumption? Occasional Information not available 06/28/2023 Are You Blind Or Do You Have Difficulty Seeing? No Wears Glasses Information not available 08/30/2023 What Is Your Level Of Caffeine Consumption? Moderate Information not available 08/30/2023 Are You Currently Employed? Yes Information not available 08/30/2023 Are You Deaf Or Do You Have Serious Difficulty Hearing? No Information not available 06/28/2023 What Type Of Diet Are You Following? REGULAR Information not available 08/30/2023 What Is Your Occupation? [employer] Information not available 08/30/2023 What Was The Date Of Your Most Recent Tobacco Screening? 11/01/2023 crevisma Information not available 11/01/2023 What Is Your Relationship Status? Information not available 06/28/2023 Do You Use Your Seat Belt Or Car Seat Routinely? Yes Information not available 06/28/2023 Do You Have Smoke And Carbon Monoxide Detectors In Your Home? Yes Information not available 08/30/2023 Do You Feel Stressed (tense, Restless, Nervous, Or Anxious, Or Unable To Sleep At Night)? [id number] Information not available 06/28/2023 Do You Use Any Illicit Or Recreational Drugs? No Information not available 08/30/2023 Has Tobacco Cessation Counseling Been Provided? No Information not available 08/30/2023 Do You Or Have You Ever Used Any Other Forms Of Tobacco Or Nicotine? No Information not available 08/30/2023 Sex: Female Functional Status Question Answer Note LastModified by [employer] ion Details LastModified Time Are you able to care for yourself? Yes Information not available 06/28/2023 What is your exercise level? Occasional Information not available 08/30/2023 Mental Status None recorded. Family History Nothing Reported. Medical History Condition Response Coronary Artery Disease N Other N High Blood Pressure N Atrial Fibrillation N Kidney or Bladder Problems N Thyroid Problems N GI Problems Y Depression Y COPD N Blood Clots N Have you had a mammogram in the last yea r? N Skin Problems N Anemia N Heart Attack ([place]) N Anxiety Disorder Y Diabetes N Muscle, Joint, or Bone Problems N Seizures/Epilepsy N Have you had a colonoscopy in the last 1 0 years? N Acid Reflux (GERD) N Cancer N Stroke N Asthma Y Allergies Y Have you had a PSA blood test in the las t year? N High Cholesterol N Hepatitis N Liver Disease N Headaches N Heart Failure N Osteoporosis N Gynecological History Statement/Question Response Current Control Method Patch Obstetrics History GPAL:G 2 P 2 0 0 2 Type Value Full Term 2 Living 2 Total 2 Immunizations Vaccine Type Date Status Note Provider Nam e and Address Organization Details Recorded Time COVID-19, mRNA, LNP-S, PF, 30 mcg/0.3 mL dose 1 completed Guanaco Saul MA null, [place] - [facility] 08/27/2023 15:11:59 COVID-19, mRNA, LNP-S, PF, 30 mcg/0.3 mL dose 1 completed Guanaco Saul [place] [facility] 08/27/2023 15:11:59 COVID-19, mRNA, LNP-S, PF, 30 mcg/0.3 mL dose 1 completed Guanaco Saul [place] [facility] 08/27/2023 15:11:59 COVID-19, mRNA, LNP-S, bivalent, PF, 30 mcg/0.3 mL dose 2 completed Guanaco Saul [place] [facility] 08/27/2023 15:11:59 Tdap 5 completed Guanaco Saul [place] [facility] 08/27/2023 15:11:59 Influenza, split virus, trivalent, preservative 1 completed Guanaco Saul MA null, [place] - [facility] 08/27/2023 15:11:59 Influenza, split virus, quadrivalent, PF 3 completed Guanaco Saul MA null, [place] - [facility] 08/27/2023 15:11:59 Influenza, split virus, trivalent, PF 4 completed Lili Francois [place], [place] [facility] 11/22/2023 11:20:28 Past Encounters Encounter ID Performer Location Encounter Start Date Encounter Closed Date Diagnosis/Indication Diagnosis SNOMED-CT Code Diagnosis ICD10 Code Diagnosis Note [id number] Zay Bennett MD [facility] [address] [place] [phone] 06/28/2023 15:55:17 06/28/2023 17:41:10 Fatigue 37621109 R53.83 Screening for cardiovascular system disease 983639298 Z13.6 Anxiety 70460195 F41.9 [id number] Zay Bennett MD [facility] [address] [place] [address] 08/30/2023 10:25:30 08/30/2023 12:05:43 Headache 81389070 R51.9 Fatigue 03958995 R53.83 [id number] Zay Bennett MD [facility] (Adult Med) [address] [place] [phone] 09/29/2023 15:56:23 09/29/2023 17:06:06 Overweight 055706073 E66.3 Low back pain 411678971 M54.50 [id number] Zay Bennett MD [facility] [address] [place] [address] 11/01/2023 10:41:12 11/01/2023 12:02:55 Fatigue 18184399 R53.83 Headache 93648132 R51.9 [id number] Lili Francois MA [facility] [address] [place] [address] 11/22/2023 11:06:32 11/22/2023 11:30:42 Administration of influenza vaccine [id number] Z23 Health Concerns Section Related Observation LastModified by Organization Detai ls LastModified Time None Recorded Concern Status LastModified by Organization Details LastModified Time None Recorded Advance Directives Directive N: Payers Encounter Date Sequence Insurance Name Policy Number Policy Mason Covered Member ID Mason Member ID Guarantor Name 06/28/2023 1 [employer] (PP[employer]) [id number] Jazmine [place] [id number] OI Jazmine Elina 08/30/2023 1 [employer] - OPEN ACCESS Tyrone Athens [id number] OI Jazmine [place] 09/29/2023 1 [employer] - OPEN ACCESS Tyrone Athens [id number] OI Jazmine Elina 11/01/2023 1 [employer] - OPEN ACCESS Tyrone Elina [id number] OI Jazmine Elina 11/22/2023 1 [employer] - OPEN ACCESS Tyrone Athens [id number] OI Jazmine Elina Notes Date Note Type Note Provider Name and Address Organization Details Recorded Time 06/28/2023 text/html 38-year-old with a history of anxiety possibly asthma history of depression and headache positive double-stranded DNA antibody ongoing chronic abdominal discomfort she has had large workup for her fatigue and headache including lumbar 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 Mother CHF RA and seizure disorder. 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 Zay Bennett MD Attn: Accounting, [address], [place], [address], [facility] 07/10/2023 19:53:58 08/30/2023 text/html still having jamie e GI issues of what she is working with [facility] she is about the same Zay Bennett MD Attn: Accounting,[address], [place], [address], [facility] 09/26/2023 13:25:38 09/29/2023 text/html acute onset of s ome pain in the mid lower back no radicular symptoms has seen a chiropractor in the past and would like to see them again pain is 8 to 9/10 worse with movement no trauma better with rest Zay Bennett MD Attn: Accounting, [address] [facility], [place], [address], [facility] 10/10/2023 16:05:37 11/01/2023 text/html headaches come a nd go anxiety high she is continuing to follow up with the specialists nothing specific as far as diagnosis concerns have been discovered in the last several visits Zay Bennett MD Attn: Accounting,[address] [facility], [place], [address], [facility] 11/07/2023 18:26:45 OBGyn Episode No OBEpisode recorded.
[2024-04-17 10:06] LABS: Hematocrit 37.4 % (37.0-47.0); Hemoglobin 11.9 g/dL (12.0-15.0); Mean Corpuscular HGB Conc 31.8 g/dl (32-36); Mean Corpuscular Hemoglobin 28.1 pg (26-34); Mean Corpuscular Volume 88.4 fl (80-100); Mean Platelet Volume 9.4 fl (7.4-10.4); Platelet Count Result 484 k/mm3 (150-375); Red Blood Count 4.23 M/mm3 (4.2-5.4); Red Cell Distribution Width 13.2 % (11.5-14.5); White Blood Count 8.8 K/mm3 (4.5-10.0)
[2024-04-17 10:16] LABS: Alanine Aminotransferase 14 U/L (6-35); Alkaline Phosphatase 93 U/L (38-126); Anion Gap 8 mmol/L (4-12); Aspartate Amino Transferase 18 U/L (14-36); Bilirubin,Total 0.4 mg/dL (0.2-1.3); Blood Urea Nitrogen 14 mg/dL (7-17); Calcium 9.4 mg/dL (8.4-10.2); Carbon Dioxide 28 mmol/L (22-30); Chloride 105 mmol/L (98-107); Cholesterol 136 mg/dL (0-200); Estimated Glomerular Filt Rate > 60; Glucose 89 mg/dL (65-110); HDL Direct 54 mg/dL; Sodium 141 mmol/L (137-145); Triglycerides 118 mg/dL (<150)
[2024-04-17 10:27] LABS: LDL Cholesterol Direct 39 mg/dL
[2024-04-18 22:08] LABS: Amphetamines NEGATIVE ng/mL (<500); Barbiturates NEGATIVE ng/mL (<300); Benzodiazepines NEGATIVE ng/mL (<100); Cocaine Metabolite NEGATIVE ng/mL (<150); Marijuana Metabolite NEGATIVE ng/mL (<20); Methadone Metabolite NEGATIVE ng/mL (<100); Opiates NEGATIVE ng/mL (<100); Oxidant NEGATIVE mcg/mL (<200); PCP NEGATIVE ng/mL (<25); pH 5.3 (4.5-9.0)
== END 2024-04-17 09:19 | disposition home or self-care (01) ==
LOC: ANHLAB 09:19
PROVIDERS: PCP Nurse Practitioner Family; Visit Provider Nurse Practitioner Family
DX: Z76.89 Persons encountering health services in other specified circumstances (principal); Z00.00 Encounter for general adult medical examination without abnormal findings; Z13.220 Encounter for screening for lipoid disorders; F41.9 Anxiety disorder, unspecified; F32.A Depression, unspecified; I73.00 Raynaud's syndrome without gangrene; K58.1 Irritable bowel syndrome with constipation; M54.9 Dorsalgia, unspecified; M79.7 Fibromyalgia; R51.9 Headache, unspecified
CPT/HCPCS: 36415; 80053; 80061; 80307; 85027

== ENCOUNTER 2024-04-27 15:48 | Outpatient (CLI) | payer OTHER, SELFPAY ==
[2024-04-27 16:21] LABS: Basophils Absolute Auto 0.1 K/mm3 (0.0-0.1); Basophils Percent Auto 0.6 % (0.2-1.2); Eosinophils Absolute Auto 0.1 K/mm3 (0-0.3); Hematocrit 37.3 % (37.0-47.0); Hemoglobin 11.7 g/dL (12.0-15.0); Immature Granulocyte Absolute 0.05 K/mm3 (0.00-0.031); Immature Granulocyte Percent A 0.5 % (0-0.5); Lymphocytes Absolute Auto 3.42 K/mm3 (0.9-3.2); Lymphocytes Percent Auto 31.9 % (18.3-44.2); Mean Corpuscular HGB Conc 31.4 g/dl (32-36); Mean Corpuscular Hemoglobin 28.2 pg (26-34); Mean Corpuscular Volume 89.9 fl (80-100); Mean Platelet Volume 9.5 fl (7.4-10.4); Monocytes Absolute Auto 0.5 K/mm3 (0.1-0.6); Neutrophils Absolute Auto 6.5 K/mm3 (1.3-6.7); Platelet Count Result 330 k/mm3 (150-375); Red Blood Count 4.15 M/mm3 (4.2-5.4); Red Cell Distribution Width 13.2 % (11.5-14.5); White Blood Count 10.7 K/mm3 (4.5-10.0)
[2024-04-27 16:29] LABS: Iron 88 ug/dL (37-170)
[2024-04-27 16:38] LABS: Percent Iron Saturation 21 % (20-50)
--- OUTSIDE RECORDS SUMMARY | 2024-04-27 16:48 | XMS_ITS | Data Portability ---
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 Continue to follow-up with Vince for anxiety [email or web address] Not available 07/10/2023 19:53:40 08/30/2023 08/30/2023 continue current therapy I will see her in 2 months I believe she has some other specialty visits, Not available 09/26/2023 13:16:51 09/29/2023 09/29/2023 I will give her a little bit of Flexeril for spasm. Chiropractic referral. Overweight healthy lifestyle care instructions given. Keep regular appointment or if she does not get better with the chiropractic treatment [email or web address] Not available 10/10/2023 16:05:18 11/01/2023 11/01/2023 we will continue current therapy I will see her in 3 months she does continue to follow up with the specialists [email or web address] Not available 11/07/2023 18:24:32 Plan of Treatment Reminders Order Date Submit Date Provider Last Modified By Organization Details Last Modified Time Details Appointments None recorded. Lab lipid panel, serum 2023 024 [facility], [address], [address], [place], [address], 4 05:39:50 ESR (erythrocyt e sedimentati on rate), blood 2023 024 [facility], [address], [address], [place], [address], 4 05:39:52 CRP, high sensitivity , serum or plasma 2023 024 HILARY [facility], [address], [address], [place], [address], 4 05:39:48 CBC w/ auto diff 2023 024 [facility]SON, [address], [address], [place], [address], 4 05:39:51 CMP, serum or plasma 2023 024 [facility]ILARY [facility]SON, [address], [address], [place], [address], 4 05:39:50 TSH + free T4, serum 2023 024 HILARY DAWSON, [address], [address], [place], [address], 4 05:39:49 T3, free, serum or plasma 2023 024 [address], [address], [place], [address], 4 05:39:53 cortisol, serum or plasma 2023 024 [address], [address], [place], [address], 05:39:51 Referral chiropracto r referral 2023 024 HILARY Arenas Sandra, [address], [address], [place], [address], 16:23:01 Procedures None recorded. Surgeries None recorded. Imaging None recorded. Medication Orders cyclobenzap rine 10 mg tablet 2023 024 [email or web address] [id number], [address], [place], [place], [id number], 17:10:01 Patient TargetsNo targets recorded. Patient Instructions Encounter Date Encounter Id Patient Instructions Last Modified By Organization Details Last Modified Time 09/29/2023 [id number] A healthy lifestyle: care instructions Not available [...] e Cardi ovasc ular Event Low <1.00 Creole ge 1.00 - 3.00 High >3.00 Not Available [facility] ([facility]) [address] [place], [address], 07/01/2023 05:39:48 06/30/1907/01/2023 TSH+F REE T4 TSH 3.390 uIU/m L 0.450- 4.500 Not Available [facility] ([facility]) [address] [facility], [place], [address], 07/01/2023 05:39:49 06/30/19 24 07/01/2023 TSH+F REE T4 T4,free(dire ct) 0.89 NG/dL 0.82-1 .77 Not Available [facility] ([facility]) [address] [place], [address], 07/01/2023 05:39:49 06/30/19 24 07/01/2023 LIPID PANEL cholesterol, total 112 mg/dL 100-19 9 Not Available [facility] ([facility]) [address] [place], [address], 07/01/2023 05:39:49 06/30/19 24 07/01/2023 LIPID PANEL triglyceride s 86 mg/dL 0-149 Not Available [facility] ([facility]) [address] [place], [address], 07/01/2023 05:39:49 06/30/19 24 07/01/2023 LIPID PANEL HDL cholesterol 48 mg/dL >39 Not Available [facility]) [address] [place], [address], 07/01/2023 05:39:49 06/30/19 24 07/01/2023 LIPID PANEL VLDL cholesterol tunde 17 mg/dL 5-40 Not Available [facility] ([facility]) [address] [place], [address], 07/01/2023 05:39:49 06/30/19 24 07/01/2023 LIPID PANEL LDL chol calc ([facility]) 47 mg/dL 0-99 Not Available [facility]) [address] [place], [address], 07/01/2023 05:39:49 06/30/19 24 07/01/2023 COMP. METAB OLIC PANEL (14) glucose 94 mg/dL 70-99 Not Available [facility] ([facility]) [address] [place], [address], 07/01/2023 05:39:50 06/30/19 24 07/01/2023 COMP. METAB OLIC PANEL (14) BUN 13 mg/dL 6-20 Not Available [facility] ([facility]) [address] [facility], [place], [address], 07/01/2023 05:39:50 06/30/19 24 07/01/2023 COMP. METAB OLIC PANEL (14) creatinine 0.73 mg/dL 0.57-1 .00 Not Available [facility] ([facility]) [address] [facility], [place], [address], 07/01/2023 05:39:50 06/30/19 24 07/01/2023 COMP. METAB OLIC PANEL (14) eGFR 108 mL/mi n/1.7 3 >59 Not Available [facility] ([facility]) [address] [place], [address], 07/01/2023 05:39:50 06/30/19 24 07/01/2023 COMP. METAB OLIC PANEL (14) BUN/creatini ne ratio 18 9-23 Not Available [facility] ([facility]) [address] [place], [address], 07/01/2023 05:39:50 06/30/19 24 07/01/2023 COMP. METAB OLIC PANEL (14) sodium 138 mmol/ L 134-14 4 Not Available [facility] ([facility]) [address] [place], [address], 07/01/2023 05:39:50 06/30/19 24 07/01/2023 COMP. METAB OLIC PANEL (14) potassium 4.6 mmol/ L 3.5-5. 2 Not Available [facility] ([facility]) [address] [place], [address], 07/01/2023 05:39:50 06/30/19 24 07/01/2023 COMP. METAB OLIC PANEL (14) chloride 106 mmol/ L 96-106 Not Available [facility] ([facility]) [address] [place], [address], 07/01/2023 05:39:50 06/30/19 24 07/01/2023 COMP. METAB OLIC PANEL (14) carbon dioxide, total 20 mmol/ L 20-29 Not Available [facility] ([facility]) [address] [facility] [place], [address], 07/01/2023 05:39:50 06/30/19 24 07/01/2023 COMP. METAB OLIC PANEL (14) calcium 9.6 mg/dL 8.7-10 .2 Not Available [facility] ([facility]) [address] [place], [address], 07/01/2023 05:39:50 06/30/19 24 07/01/2023 COMP. METAB OLIC PANEL (14) protein, total 6.7 g/dL 6.0-8. 5 Not Available [facility] ([facility]) [address] [place], [address], 07/01/2023 05:39:50 06/30/19 24 07/01/2023 COMP. METAB OLIC PANEL (14) albumin 4.1 g/dL 3.9-4. 9 Not Available [facility] ([facility]) [address] [facility] [place], [address], 07/01/2023 05:39:50 06/30/19 24 07/01/2023 COMP. METAB OLIC PANEL (14) globulin, total 2.6 g/dL 1.5-4. 5 Not Available [facility] ([facility]) [address] [place], [address], 07/01/2023 05:39:50 06/30/19 24 07/01/2023 COMP. METAB OLIC PANEL (14) A/G ratio 1.6 1.2-2. 2 Not Available [facility] ([facility]) [address] [facility] [place], [address], 07/01/2023 05:39:50 06/30/19 24 07/01/2023 COMP. METAB OLIC PANEL (14) bilirubin, total 0.2 mg/dL 0.0-1. 2 Not Available [facility] ([facility]) [address] [facility] [place], [address], 07/01/2023 05:39:50 06/30/19 24 07/01/2023 COMP. METAB OLIC PANEL (14) alkaline phosphatase 83 IU/L 44-121 Not Available [facility] [address] [facility] [place], [address], 07/01/2023 05:39:50 06/30/19 24 07/01/2023 COMP. METAB OLIC PANEL (14) AST (SGOT) 11 IU/L 0-40 Not Available [facility] ([facility]) [address] [facility], [place], [address], 07/01/2023 05:39:50 06/30/19 24 07/01/2023 COMP. METAB OLIC PANEL (14) ALT (SGPT) 10 IU/L 0-32 Not Available [facility] ([facility]) [address] [place], [address], 07/01/2023 05:39:50 06/30/19 24 07/01/2023 CORTI JENY cortisol 18.1 ug/dL 6.2-19 .4 Lisa matson Note: The refer ence inter griselda and monica ing for this test is for an AM colle ction . If this is a PM colle ction lisa matson use: Corti jeny PM: 2.3-1 1.9 Not Available [facility] ([facility]) [address] [place], [address], 07/01/2023 05:39:51 06/30/19 24 06/30/2023 CBC WITH DIFFE RENTI AL/PL ATELE T WBC 8.7 x10e3 /uL 3.4-10 .8 Not Available [facility] ([facility]) [address] [place], [address], 07/01/2023 05:39:51 06/30/19 24 06/30/2023 CBC WITH DIFFE RENTI AL/PL ATELE T RBC 4.03 x10e6 /uL 3.77-5 .28 Not Available [facility] ([facility]) [address] [facility], [place], [address], 07/01/2023 05:39:51 06/30/19 24 06/30/2023 CBC WITH DIFFE RENTI AL/PL ATELE T hemoglobin 11.7 g/dL 11.1-1 5.9 Not Available [facility] ([facility]) [address] [place], [address], 07/01/2023 05:39:51 06/30/19 24 06/30/2023 CBC WITH DIFFE RENTI AL/PL ATELE T hematocrit 36.1 % 34.0-4 6.6 Not Available [facility] ([facility]) [address] [place], [address], 07/01/2023 05:39:51 06/30/1906/30/2023 CBC WITH DIFFE RENTI AL/PL ATELE T MCV 90 fL 79-97 Not Available [facility] ([facility]) [address] [place], [address], 07/01/2023 05:39:51 06/30/1906/30/2023 CBC WITH DIFFE RENTI AL/PL ATELE T MCH 29.0 pg 26.6-3 3.0 Not Available [facility] ([facility]) [address] [place], [address], 07/01/2023 05:39:51 06/30/19 24 06/30/2023 CBC WITH DIFFE RENTI AL/PL ATELE T MCHC 32.4 g/dL 31.5-3 5.7 Not Available [facility] ([facility]) [address] [facility], [place], [address], 07/01/2023 05:39:51 06/30/19 24 06/30/2023 CBC WITH DIFFE RENTI AL/PL ATELE T RDW 12.4 % 11.7-1 5.4 Not Available [facility] ([facility]) [address] [facility], [place], [address], 07/01/2023 05:39:51 06/30/19 24 06/30/2023 CBC WITH DIFFE RENTI AL/PL ATELE T platelets 485 x10e3 /uL 150-45 0 above high normal Not Available [facility] ([facility]) [address] [facility], [place], [address], 07/01/2023 05:39:51 06/30/19 24 06/30/2023 CBC WITH DIFFE RENTI AL/PL ATELE T neutrophils 53 % notest ab. Not Available [facility] ([facility]) [address] [facility], [place], [address], 07/01/2023 05:39:51 06/30/19 24 06/30/2023 CBC WITH DIFFE RENTI AL/PL ATELE T lymphs 38 % notest ab. Not Available [facility] ([facility]) [address] [facility], [place], [address], 07/01/2023 05:39:51 06/30/19 24 06/30/2023 CBC WITH DIFFE RENTI AL/PL ATELE T monocytes 6 % notest ab. Not Available [facility] ([facility]) [address] [facility], [place], [address], 07/01/2023 05:39:51 06/30/19 24 06/30/2023 CBC WITH DIFFE RENTI AL/PL ATELE T eos 2 % notest ab. Not Available [facility] ([facility]) [address] [place], [address], 07/01/2023 05:39:51 06/30/19 24 06/30/2023 CBC WITH DIFFE RENTI AL/PL ATELE T basos 1 % notest ab. Not Available [facility] ([facility]) [address] [facility], [place], [address], 07/01/2023 05:39:51 06/30/19 24 06/30/2023 CBC WITH DIFFE RENTI AL/PL ATELE T neutrophils (absolute) 4.7 x10e3 /uL 1.4-7. 0 Not Available [facility] ([facility]) [address] [facility], [place], [address], 07/01/2023 05:39:51 06/30/19 24 06/30/2023 CBC WITH DIFFE RENTI AL/PL ATELE T lymphs (absolute) 3.3 x10e3 /uL 0.7-3. 1 above high normal Not Available [facility] ([facility]) [address] [place], [address], 07/01/2023 05:39:51 06/30/19 24 06/30/2023 CBC WITH DIFFE RENTI AL/PL ATELE T monocytes(ab solute) 0.5 x10e3 /uL 0.1-0. 9 Not Available [facility] ([facility]) [address] [place], [address], 07/01/2023 05:39:51 06/30/19 24 06/30/2023 CBC WITH DIFFE RENTI AL/PL ATELE T eos (absolute) 0.1 x10e3 /uL 0.0-0. 4 Not Available [facility] ([facility]) [address] [place], [address], 07/01/2023 05:39:51 06/30/19 24 06/30/2023 CBC WITH DIFFE RENTI AL/PL ATELE T baso (absolute) 0.1 x10e3 /uL 0.0-0. 2 Not Available [facility] ([facility]) [address] [facility], [place], [address], 07/01/2023 05:39:51 06/30/19 24 06/30/2023 CBC WITH DIFFE RENTI AL/PL ATELE T immature granulocytes 0 % notest ab. Not Available [facility] ([facility]) [address] [facility], [place], [address], 07/01/2023 05:39:51 06/30/19 24 06/30/2023 CBC WITH DIFFE RENTI AL/PL ATELE T immature grans (abs) 0.0 x10e3 /uL 0.0-0. 1 Not Available [facility] ([facility]) [address] [facility], [place], [address], 07/01/2023 05:39:51 06/30/19 24 07/01/2023 SEDIM ENTAT ION RATE- WESTE RGREN sedimentatio n rate-westerg nuria 4 mm/HR 0-32 Not Available [facility] ([facility]) [address] [facility], [place], [address], 07/01/2023 05:39:52 06/30/19 24 07/01/2023 TRIIO DOTHY ADRIÁN E (T3), FREE triiodothyro nine (T3), free 2.7 pg/mL 2.0-4. 4 Not Available [facility] ([facility]) [address] [place], [address], 07/01/2023 05:39:52 09/30/19 24 09/30/2023 XR, abdom en + RF, small bowel , w/ air, w/ contr ast via enter oclys is tube No observ ation record ed. [email or web address] [facility] [address], [place], [address], 11/07/2023 18:25:56 11/02/19 24 12/27/2021 MRI, thora cic spine , w/o contr ast No observ ation record ed. [email or web address] Not Available 2023 23:22:12 11/02/19 24 12/26/2021 MRI, cervi tunde spine , w/o contr ast No observ ation record ed. Not Available 2023 23:22:12 11/02/19 24 12/27/2021 MRI, lumba r spine , w/wo contr ast No observ ation record ed. Not Available 2023 22:12:40 11/15/19 24 11/15/2023 XR, cervi tunde spine , 2 or 3 view No observ ation record ed. [address], [address], 11/19/2023 16:09:46 11/15/19 24 11/15/2023 XR, thora cic spine , 2 view No observ ation record ed. [address] [place] [address], [address], 11/19/2023 16:09:47 11/15/19 24 11/15/2023 XR, lumba r spine , 2 view No observ ation record ed. [address] [place] [address], [address], 11/19/2023 16:09:47 11/15/19 24 11/15/2023 XR, lumba r spine , 2 view No observ ation record ed. [address] [place] [address], [address], 11/19/2023 16:09:48 11/15/19 24 11/15/2023 XR, thora cic spine , 2 view No observ ation record ed. [facility] ([facility]) [address] [place] [address] [place] [address], [phone], 11/25/2023 13:07:15 Result Notes None recorded. Problems Name Problem SNOMED Code Status Onset Date Resolution Date Notes Provider Name and Address Organization Details Recorded Time Fatigue 67932745 Active 024 Zay Bennett MD Attn: Accounting ,[address] [facility], [place], [address] , [facility] 4 19:52:54 Anxiety 96721435 Active 024 Zay Bennett MD Attn: Accounting ,[address] [facility], [place], [address] , [facility] 4 19:52:57 Headache 99614118 Active 024 Zay Bennett MD Attn: Accounting ,[address] [facility], [place], [address] , [facility] 4 13:17:02 Low back pain 668084550 Active 024 Lolly Ornelas MA null, [place] - [facility] 4 16:59:28 Problem Notes None recorded. Procedures Surgical History Date Name Laterality Status Provider Name and Address Organization Details Recorded Time appendectomy completed Guanaco Saul MA [facility] 08/30/2023 10:40:39 delivery completed Guanaco Saul MA [facility] 08/30/2023 10:40:46 Imaging Results Imaging Date Name Status LastModified by Organization Details LastModified Time 09/30/2023 XR, abdomen + RF, small bowel, w/ air, w/ contrast via enteroclysis tube completed [email or web address] [facility] [address], [place], [address], 11/07/2023 18:25:56 12/27/2021 MRI, thoracic spine, w/o contrast completed [email or web address] Information not available 11/03/2023 23:22:12 12/26/2021 MRI, cervical spine, w/o contrast completed [email or web address] Information not available 11/03/2023 23:22:12 12/27/2021 MRI, lumbar spine, w/wo contrast completed [email or web address] Information not available 11/07/2023 22:12:40 11/15/2023 XR, cervical spine, 2 or 3 view completed [address] [place] [address], [address], 11/19/2023 16:09:46 11/15/2023 XR, thoracic spine, 2 view completed [address] [place] [address], [address], 11/19/2023 16:09:47 11/15/2023 XR, lumbar spine, 2 view completed [address] [place] [address], [address], 11/19/2023 16:09:47 11/15/2023 XR, lumbar spine, 2 view completed [address] [place] [address], [address], 11/19/2023 16:09:48 11/15/2023 XR, thoracic spine, 2 view completed [facility] ([facility]) [address] [place] [address] [place] [address], [phone], 11/25/2023 13:07:15 Procedure Notes None recorded. Medical Equipment None Reported. Allergies Allergen ID Allergen Name Allergen Category Reaction Reaction Severity Criticality Documentation Date Start Date Code Code System Note Provider Name and Address Organization Details Recorded Time 686169 hydroxych loroquine medicatio n Not available Not [...] Updated DateTime 4 162.56 cm 26.1 kg/m2 93872.4 g 79 /min 99 % 99 % 116 mm[Hg] 74 mm[Hg] Stephanie Pineda MA [place] [facility] 4 16:45:22 Date Recorded Body height Body mass index (BMI) Body weight Heart rate Oxygen saturation Oxygen saturation in Arterial blood by Pulse oximetry Systolic blood pressure Diastolic blood pressure Provider Name and Address Organization Details Last Updated DateTime 4 162.56 cm 28.5 kg/m2 04822.3 3 g 81 /min 98 % 98 [...] Updated DateTime 4 162.56 cm 29.5 kg/m2 99249.8 9 g 100 % 100 % 87 /min 5 126 mm[Hg] 80 mm[Hg] Guanaco Saul MA [facility] 4 16:23:58 Date Recorded Body height Body mass index (BMI) Body weight Heart rate Oxygen saturation Oxygen saturation in Arterial blood by Pulse oximetry Systolic blood pressure Diastolic blood pressure Provider Name and Address Organization Details Last Updated DateTime 4 162.56 cm 29.7 kg/m2 85387.7 7 g 97 /min 97 % 97 % 126 mm[Hg] 76 mm[Hg] Barbara Anglin MA [facility] 4 10:53:43 Social History Question Answer Notes LastModified by Organizat ion Details LastModified Time Tobacco Smoking Status Never Smoker Stephanie Pineda MA [facility] 06/28/2023 16:42:42 Do You Have An Advance [...] Anxious, Or Unable To Sleep At Night)? [id number] Information not available 06/28/2023 Do You Use Any Illicit Or Recreational Drugs? No Information not available 08/30/2023 Has Tobacco Cessation Counseling Been Provided? No Information not available 08/30/2023 Do You Or Have You Ever Used Any Other Forms Of Tobacco Or Nicotine? No Information not available 08/30/2023 Sex: Female Functional Status Question Answer Note LastModified by Prediculousat ion Details LastModified Time Are you able to care for yourself? Yes Information not available 06/28/2023 What is your exercise level? Occasional Information not available 08/30/2023 Mental Status None recorded. Family History Nothing Reported. Medical History Condition Response Coronary Artery Disease N Other N Atrial Fibrillation N High Blood Pressure N Thyroid Problems N Kidney or Bladder Problems N Depression Y COPD N Blood Clots N GI Problems Y Have you had a mammogram in the last yea r? N Skin Problems N Anemia N Heart Attack ([place]) N Diabetes N Anxiety Disorder Y Muscle, Joint, or Bone Problems N Seizures/Epilepsy N Have you had a colonoscopy in the last 1 0 years? N Acid Reflux (GERD) N Cancer N Stroke N Allergies Y Asthma Y Have you had a PSA blood test in the las t year? N High Cholesterol N Hepatitis N Liver Disease N Headaches N Osteoporosis N Heart Failure N Gynecological History Statement/Question Response Current Control [...] preservative 1 completed Guanaco Saul MA null, [place] - [facility] 08/27/2023 15:11:59 Influenza, split virus, quadrivalent, PF 3 completed Guanaco Saul [place] null, [place] - [facility] 08/27/2023 15:11:59 Influenza, split virus, trivalent, PF 4 completed Lili Francois [place] null, [place] - [facility] 11/22/2023 11:20:28 Past Encounters Encounter ID Performer Location Encounter Start Date Encounter Closed Date Diagnosis/Indication Diagnosis SNOMED-CT Code Diagnosis ICD10 Code Diagnosis Note [id number] Zay Bennett MD [email or web address] [place] [address] [place] [address] 06/28/2023 15:55:17 06/28/2023 17:41:10 Fatigue 59272293 R53.83 Screening for cardiovascular system disease 035787582 Z13.6 Anxiety 68242910 F41.9 [id number] Zay Bennett MD [email or web address] [place] [address] [place] [address] 08/30/2023 10:25:30 08/30/2023 12:05:43 Headache 13280042 R51.9 Fatigue 06858589 R53.83 [id number] Zay Bennett MD [facility] (Adult Med) [address] [place] [address] 09/29/2023 15:56:23 09/29/2023 17:06:06 Overweight 736015553 E66.3 Low back pain 855538484 M54.50 [id number] Zay Bennett MD [facility] [place] [address] [place] [address] 11/01/2023 10:41:12 11/01/2023 12:02:55 Fatigue 73471739 R53.83 Headache 25033255 R51.9 [id number] Lili Francois MA [facility] [place] [address] [place] [address] 11/22/2023 11:06:32 11/22/2023 11:30:42 Administration of influenza vaccine 40475496 Z23 Health Concerns Section Related Observation LastModified by Organization Detai ls LastModified Time None Recorded Concern Status LastModified by Organization Details LastModified Time None Recorded Advance Directives Directive N: Payers Encounter Date Sequence Insurance Name Policy Number Policy Mason Covered Member ID Mason Member ID Guarantor Name 06/28/2023 1 [employer] (PP[employer]) [id number] Jazmine Elina [id number] OI Jazmine Elina 08/30/2023 1 [employer] - OPEN ACCESS [place] [id number] OI Jazmine Elina 09/29/2023 1 [employer] - OPEN ACCESS [place] [id number] OI J[place]mine [place] 11/01/2023 1 [employer] - OPEN ACCESS [place] [id number] OI J[place]mine [place] 11/22/2023 1 [employer] - OPEN ACCESS [place] [id number] OI J[place]mine [place] Notes Date Note Type Note Provider Name [...] 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 Mother CHF RA and seizure disorder. 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 Zay Bennett MD Attn: Accounting, [address], [place], [address], [facility] 07/10/2023 19:53:58 08/30/2023 text/html still having jamie e GI issues of what she is working with [facility] she is about the same Zay Bennett MD Attn: Accounting,[address], [place], [address], [facility] 09/26/2023 13:25:38 09/29/2023 text/html acute onset of s ome pain in the mid lower back no radicular symptoms has seen a chiropractor in the past and would like to see them again pain is 8 to 9/10 worse with movement no trauma better with rest Zay Bennett MD Attn: Accounting, [address] [facility], [place], [address], [facility] 10/10/2023 16:05:37 11/01/2023 text/html headaches come a nd go anxiety high she is continuing to follow up with the specialists nothing specific as far as diagnosis concerns have been discovered in the last several visits Zay Bennett MD Attn: Accounting,[address] [facility], [place], [address], [facility] 11/07/2023 18:26:45 OBGyn Episode No OBEpisode recorded.
--- OUTSIDE RECORDS SUMMARY | 2024-04-27 16:49 | XMS_ITS | Continuity of Care Document ---
Author Organization [facility] Address [address] [place] [address] Phone Care Team Providers Care Message Broker Developer Name Role Phone Unavailable Unavailable Unavailable Advance Directives Directive Yes / No Effective Date File Name No Information Encounters Encounter Description Practice Location Reason(s) For Visit Diagnoses Date Provider Providers Copied on Encounter [facility], [address] [facility], [place], [place], [id number], tel:[phone] [facility] No Information Sep-0 4-201 5 No Information Referring Provider: GIO HOWELL, [address] [facility], [place], [address]. tel:[phone] Family History Family Member Type Diagnosis Age At Onset No Information Payers Payer name Insurance type Covered libertarian ID Authorjacoba marko(s) [employer] PPO [id number] CI [id number] Social History Type Description Quantity Date Captured Comments Sex Female Smoking Status No Information Chief Complaint And Reason For Visit No Information History Of Present Illness Encounter Date Complaint History Of Prese nt Illness No Information Instructions Date Instruction Additional Infor mation No Information Assessments Type Assessment Date No Information
--- OUTSIDE RECORDS SUMMARY | 2024-04-27 16:49 | XMS_ITS | Clinical Summary ---
Author Organization [facility] [address] Address [address] [place] [address] Care Team Providers Care Hot Air Furnace Installer Repairer Name Role Phone Catherine Nunez MD Primary Care Provider [phone] Allergies Active Allergy Reactions Criticality Noted Date Comments Hydroxychloroquine Hives Medium 04/21/2023 Medications verapamiL (CALAN) 120 mg tablet Take 1 tablet (120 mg total) by mouth 3 (three) times a day Active riboflavin (Vitamin B-2) 100 mg tabletIndicatio ns:Riboflavin Deficiency 4 tablets (400 mg total) Active valACYclovir (VALTREX) 500 mg tablet Take 1 tablet (500 mg total) by mouth 2 (two) times a day Active atogepant (Qulipta) 60 mg tablet Take 60 mg by mouth daily Active ALPRAZolam (XANAX) 0.5 mg tablet Take 1 tablet (0.5 mg total) by mouth nightly as needed for anxiety Active cholecalciferol (VITAMIN D-3) 5,000 unit capsule Take 1 capsule (5,000 Units total) by mouth daily Active gabapentin (NEURONTIN) 300 mg capsule Take 1 capsule (300 mg total) by mouth 3 (three) times a day Active Lactobacillus rhamnosus GG (CULTURELLE) 10 billion cell capsule Take 1 capsule by mouth daily Active DULoxetine DR (CYMBALTA) 30 mg capsule Take 1 capsule (30 mg total) by mouth daily Active DULoxetine DR (CYMBALTA) 60 mg capsule Take 1 capsule (60 mg total) by mouth daily Active cyanocobalamin (Vitamin B-12) 500 mcg tabletIndicatio ns:Prevention of Vitamin B12 Deficiency Take 1 tablet (500 mcg total) by mouth daily Active acetaZOLAMIDE ER (DIAMOX SEQUAL) 500 mg capsule Take 250 mg by mouth 2 (two) times a day Active magnesium oxide (MAG-OX) 250 mg (150.8 mg elemental) tabletIndicatio ns:hypomagnesem ia 1 tablet (250 mg total) daily Active amitriptyline (ELAVIL) 10 mg tablet Active Linzess 72 mcg capsule Active medroxyPROGESTE Adrián (PROVERA) 10 mg tablet Take 1 tablet (10 mg total) by mouth daily 05/28/2023 Active Xulane 150-35 mcg/24 hr Active Active Problems No known active problems Surgical History Surgery Date Site/Laterality Comments SECTION APPENDECTOMY Medical History Medical History Date Comments Raynaud's disease Migraines Family History Medical History Relation Name Comments No Known Problems Father Arthritis Mother Relation Name Status Comments Father Mother Social History Tobacco Use Types Packs/Day Years Used Date Smoking Tobacco: Never Smokeless Tobacco: Never Tobacco Cessation:Counseling Given: Not Answered AUDIT-C Answer Date Recorded Q1: How often do you have a drink containing alcohol? Never 04/21/2023 Q2: How many drinks containi ng alcohol do you have on a typical day when you are drinking? Patient does not drink Q3: How often do you have si x or more drinks on one occasion? Never 04/21/2023 Personal Safety Answer Date Recorded Getting School Help Needed Not on file 03/22 Comments Unknown Sex and Gender Information Value Date Recorded Sex Assigned at Not on file Legal Sex Female 6:57 AM LIQUOR CLERK Gender Identity Not on file Sexual Orientation Not on file Obstetrics History Last Filed Vital Signs Vital Sign Reading Time Taken Comments Blood Pressure 102/68 06/01/2023 3:28 PM CDT Pulse 96 04/21/2023 1:43 PM LIQUOR CLERK Temperature 36.4 C (97.6 F) 04/21/2023 1:43 PM LIQUOR CLERK Respiratory Rate - - Oxygen Saturation 100% 04/21/2023 1:43 PM LIQUOR CLERK Inhaled Oxygen Concentration - - Weight 68.5 kg (151 lb) 06/01/2023 3:28 PM CDT Height 164 cm (5' 4.57 ) 06/01/2023 3:28 PM CDT Body Mass Index 25.46 06/01/2023 3:28 PM CDT Plan of Treatment Health Maintenance Due Date Last Done Comments Cervical Cancer Screening 1985 Depression Screening 1985 Varicella Vaccines (1 of 2 - 13+ 2-dose series) 1998 Hepatitis B Screening 2003 Regular Well Visit/Exam 18-64 2003 Covid-19 Vaccine ( season) 2023 11/10/2021, 02/07/2021, 06/11/2020, Additional history exists Influenza Vaccine (#1) 2023 12/07/2022, 2020 DTaP/Tdap/Td Vaccine (2 - Td or Tdap) 12/28/2024 12/28/2014 Hepatitis C Screening Completed 04/21/2023 HPV Vaccines Aged Out No longer eligi ble based on patient's age to complete this topic Pneumococcal vaccine <65 Aged Out No longer eligible based on patient's age to complete this topic Procedures Procedure Name Priority Date/Time Associated Diagnosis Comments HEPATITIS C ANTIBODY Routine 04/21/2023 2:51 PM LIQUOR CLERK Musculoskeletal pain Multiple joint pain Other fatigue Skin sensation disturbance from Last 3 Months or Most Recently Relevant to Health Maintenance Results * Hepatitis C antibody Blood (04/21/2023 2:51 PM LIQUOR CLERK) Hep C Ab Nonreactive Nonreactive [facility] Comment: Interpretive Data Nonreactive: Antibodies to HCV not detected. Does NOT exclude the possibility of recent exposure to HCV. Equivocal: Equivocal for HCV antibodies. Supplemental molecular testing will be automatically performed to determine infection status in accordance with current CDC screening recommendations. Reactive: Positive for HCV antibodies. This may represent current or past HCV infection. Supplemental molecular testing will be automatically performed to determine current infection status in accordance with current CDC screening recommendations. Interpretive data was last revised on 2019. Blood 04/21/2023 2:51 PM LIQUOR CLERK 04/21/2023 6:28 PM LIQUOR CLERK us Cynthia Eden MD LAB MICROB IOLOGY - GENERAL ORDERABLES Edited Result - Final [facility] [id number] [place] [address] from Last 3 Months or Most Recently Relevant to Health Maintenance Insurance [employer] HMO [facility] [id number] [place] [address] [facility] [id number] Care Teams Hot Air Furnace Installer Repairer Relationship Specialty Start Date End Date Catherine Nunez MD [address] [place] [address] [place] [address] PCP - General Family Medicine 03/22/23
--- OUTSIDE RECORDS SUMMARY | 2024-04-27 16:49 | XMS_ITS | Referral Summary ---
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 Gender Identity Not on file Sexual Orientation Not on file Last Filed Vital Signs Vital Sign Reading Time Taken Comments Blood Pressure 102/68 06/01/2023 3:28 PM CDT Pulse 96 04/21/2023 1:43 PM MECHANICAL APPRENTICE Temperature 36.4 C (97.6 F) 04/21/2023 1:43 PM MECHANICAL APPRENTICE Respiratory Rate - - Oxygen Saturation 100% 04/21/2023 1:43 PM MECHANICAL APPRENTICE Inhaled Oxygen Concentration - - Weight 68.5 kg (151 lb) 06/01/2023 3:28 PM CDT Height 164 cm (5' 4.57 ) 06/01/2023 3:28 PM CDT Body Mass Index 25.46 06/01/2023 3:28 PM CDT Plan of Treatment Not on file Procedures Procedure Name Priority Date/Time Associated Diagnosis Comments HEPATITIS C ANTIBODY Routine 04/21/2023 2:51 PM MECHANICAL APPRENTICE Musculoskeletal pain Multiple joint pain Other fatigue Skin sensation disturbance from Last 3 Months or Most Recently Relevant to Health Maintenance Results * Hepatitis C antibody Blood (04/21/2023 2:51 PM MECHANICAL APPRENTICE) Hep C Ab Nonreactive Nonreactive [facility] Comment: Interpretive Data Nonreactive: Antibodies [...] revised on 2019. Blood 04/21/2023 2:51 PM MECHANICAL APPRENTICE 04/21/2023 6:28 PM MECHANICAL APPRENTICE Cynthia Eden MD LAB MICROB IOLOGY - GENERAL ORDERABLES Edited Result - Final [facility] [id number] Department [place] [address] from Last 3 Months or Most Recently Relevant to Health [place] [address] [place] [address] [employer] [facility] [id number] [facility] [id number] Care Teams Superintendent Nonselling Relationship Specialty Start Date End Date DiogoCatherine Ivy MD [address] [place] [address] [place] [address] PCP - General Family Medicine 03/22/23
[2024-04-27 17:35] LABS: Folic Acid 12.3 ng/mL (2.76->20)
== END 2024-04-27 15:49 | disposition home or self-care (01) ==
LOC: ANHLAB 15:49
PROVIDERS: PCP Nurse Practitioner Family; Visit Provider Nurse Practitioner Family
DX: D64.89 Other specified anemias (principal); R79.89 Other specified abnormal findings of blood chemistry
CPT/HCPCS: 36415; 82607; 82728; 82746; 83540; 83550; 85025

== ENCOUNTER 2024-10-10 12:29 | Outpatient (CLI) | payer OTHER, SELFPAY ==
[2024-10-10 13:01] LABS: Hematocrit 38.4 % (37.0-47.0); Hemoglobin 12.3 g/dL (12.0-15.0); Mean Corpuscular HGB Conc 32.0 g/dl (32-36); Mean Corpuscular Hemoglobin 27.4 pg (26-34); Mean Corpuscular Volume 85.5 fl (80-100); Platelet Count Result 514 k/mm3 (150-375); Red Blood Count 4.49 M/mm3 (4.2-5.4); White Blood Count 12.3 K/mm3 (4.5-10.0)
[2024-10-10 13:38] LABS: Magnesium 1.8 mg/dL (1.6-2.3)
[2024-10-10 16:21] LABS: Iron 59 ug/dL (37-170)
[2024-10-10 16:31] LABS: Percent Iron Saturation 14 % (20-50)
[2024-10-10 16:57] LABS: Ferritin 17.90 ng/mL (6.24-137)
[2024-10-11 18:08] LABS: Cocaine (Metab.), Urine Negative ng/mL (Cutoff=300)
== END 2024-10-10 12:30 | disposition home or self-care (01) ==
LOC: ANHLAB 12:30
PROVIDERS: PCP Nurse Practitioner Family; Visit Provider Nurse Practitioner Family
DX: R25.2 Cramp and spasm (principal); D64.89 Other specified anemias; Z79.899 Other long term (current) drug therapy
CPT/HCPCS: 36415; 80307; 82728; 83540; 83550; 83735; 85027

== ENCOUNTER 2024-11-29 11:25 | Outpatient (CLI) | payer OTHER, SELFPAY ==
[2024-11-29 12:17] LABS: Add Urine Microscopic? YES; Appearance Urine Clear (Clear); Glucose Urine UA Negative (Negative); Leukocyte Esterase Ur 1+ LEU/UL (Negative); Need Manual Microscopic Reviewed; Nitrate Urine Positive (Negative); Non Pathogenic Casts 0-2; Specific Grav Ur 1.025 (1.001-1.035)
[2024-11-29 12:39] LABS: Beta HCG Quantitative < 2.39 mIU/ML
== END 2024-11-29 11:26 | disposition home or self-care (01) ==
LOC: ANHLAB 11:27
PROVIDERS: PCP Nurse Practitioner Family; Visit Provider Nurse Practitioner Family
DX: R39.9 Unspecified symptoms and signs involving the genitourinary system (principal)
CPT/HCPCS: 36415; 81001; 84702; 87086; 87147; 87186